=== PATIENT | female | born 1990 | race Caucasian/White ===

== ENCOUNTER 2018-01-12 00:19 | Emergency (ER) | payer MEDICAID, SELFPAY ==
[2018-01-12 00:20] VITALS: BP 128/83; PULSE 72; RESP 20; TEMP 37; O2SAT 99; BMI 25.4
--- NOTE | 2018-01-12 00:33 | ED.DCSUM_ITS ---
- ER Visit Summary Date of Service: 01/12/18 Chief Complaint: [] Right flank pain History of Present Illness: The patient is a 27 F right flank pain since yesterday. Sudden onset intermittent lasting 2 seconds at a time. Waxes and wanes. Is a sharp pain. Currently she has no symptoms. It comes and goes. It is very short-lived. She had one episode of emesis earlier today. No abdominal pain. No history of kidney stones. No urinary symptoms. Denies . she took Motrin 2 hours ago Physical Examination: [] Vital signs reviewed General: Well-nourished well-developed Head: Normocephalic atraumatic Eyes: Pupils equal round and reactive to light extraocular movements intact ENT: TMs clear no hemotympanum no trauma Neck: Nontender full range of motion Cardiovascular: Regular rate rhythm no murmurs normal S1-S2 Respiratory: No distress clear to auscultation bilaterally chest nontender Abdomen: Soft nontender nondistended normal bowel sounds no masses Back: Nontender no CVA tenderness Extremities: Nontender active range of motion ?4 extremities no trauma Skin: Normal color no trauma Neuro alert oriented cranial nerves II through XII intact normal strength sensation reflexes Test Results: [] Emergency Department Course and Treatment: [] Given oral Tylenol. Symptom-free currently. Urine analysis and labs sent. They are essentially negative. No bacteria or microscopic red blood cells seen. She is remained pain-free here. I do not think she has a kidney stone. There is no evidence of UTI. She has no abdominal pain to suspect an intra-abdominal or emergent as of her symptoms. I think she can follow-up. She will continue Tylenol ibuprofen. This could be musculoskeletal. Treatment Plan: [] Disposition: [] Impression: [] Right flank pain resolved This note was generated with [employer] dictation software. It may contain incorrect words, spelling, and punctuation that were not noted in review of the chart prior to signing ED Disposition - Plan for ED Patient: Chief Complaint: Flank Pain Referrals: Jose Roberto Carrera DO [Primary Care Provider] -
[2018-01-12] MEDS: Acetaminophen 500 MG Tablet 1000 MG PO (00:35)
[2018-01-12 00:42] LABS: Bacteria 0 SEEN /hpf (None Seen); Mucous, Urine 0 SEEN /hpf (<or=2+); Red Blood Cells-Urine 0 SEEN /hpf (0-5); White Blood Cells 0 SEEN /hpf (0-5)
[2018-01-12 00:47] LABS: Color, Urine Straw (Yellow); Glucose, Dipstick Normal (Normal); Ketone-Dipstick Negative (Negative); Leukocyte Esterase-Dipstick Negative /ul (Negative); Nitrite-Dipstick Negative (Negative); Occult Blood-Urine 150 /ul (Negative); Protein-Dipstick Negative (Negative); Specific Gravity, Urine 1.005 (1.002-1.030); Urine Bilirubin Dipstick Negative (Negative); Urine Clarity Clear (Clear); Urine Urobilinogen Normal (Normal)
[2018-01-12 00:48] LABS: Internal QC Validated? YES +Cl - CLEAR BKGD; Pregnancy, Urine Negative Negative
[2018-01-12 00:54] LABS: Squamous Epithelial Cells - UA 0-5 SEEN /hpf (5-10)
--- NOTE | 2018-01-12 00:59 | ED.DEP ---
ED Disposition - Plan for ED Patient: Disposition: Home or Assisted Living Chief Complaint: Flank Pain Instructions: ED Flank Pain Uncertain Cause Referrals: Jose Roberto Carrera DO [Primary Care Provider] -
--- NOTE | 2018-01-12 01:04 | ED.RN ---
PT GIVEN WRITTEN AND VERBAL DISCHARGE INSTRUCTIONS AND VERBALIZES UNDERSTANDING. PT TO FOLLOW UP WITH DR. ESPINOZA AND RETURN TO ED FOR ANY NEW OR WORSENED SX. PT VERBALIZES UNDERSTANDING AND DENIES ANY FURTHER QUESTIONS.
== END 2018-01-12 01:06 | disposition home or self-care (01) ==
PROVIDERS: Emergency Provider Emergency Medicine; Family Provider Student in an Organized Health Care Education/Training Program; PCP Student in an Organized Health Care Education/Training Program
DX: R10.9 Unspecified abdominal pain (principal); R11.2 Nausea with vomiting, unspecified; J45.909 Unspecified asthma, uncomplicated; Z87.440 Personal history of urinary (tract) infections
CPT/HCPCS: 81001; 81025; 99283

== ENCOUNTER 2018-02-18 20:58 | Emergency (ER) | payer MEDICAID, SELFPAY ==
[2018-02-18 20:59] VITALS: BP 112/69; PULSE 90; RESP 23; TEMP 36.7; O2SAT 98; BMI 27.8
[2018-02-18 21:05] LABS: Bedside Glucose 132 mg/dL (70-110)
--- NOTE | 2018-02-18 21:22 | CT_ITS ---
STUDY: CT BRAIN WITHOUT CONTRAST REASON FOR EXAM: Female, 27 years old. Low blood sugar and tremors while sleeping. RADIATION DOSAGE (If Supplied By Facility): CTDIvol = ( 44.99 ) mGy, DLP = ( 762.36 ) mGycm TECHNIQUE: Transaxial CT imaging of the brain was performed without administration of intravenous contrast material. Individualized dose optimization techniques were used for this CT. COMPARISON: September 17, 2012 FINDINGS: Normal soft tissue structures. Normal calvarium. Normal size ventricles and extra-axial spaces for the patient's age. Normal white matter tracts of the cerebral hemispheres. Normal basal ganglia and thalami. Normal brainstem. Normal cerebellum. There is no intracranial hemorrhage. There are no findings of an acute ischemic infarction. Normal visualized paranasal sinuses. CT/Brain/Head without Contrast IMPRESSION: No acute intracranial process. Electronically Signed: Radha Gudino MD at 22:16 EST Tel , Service support ,
--- NOTE | 2018-02-18 21:22 | RAD_ITS ---
STUDY: X-RAY CHEST REASON FOR EXAM: Female, 27 years old. Cough, chest pain. TECHNIQUE: Single frontal view of the chest. COMPARISON: None. FINDINGS: The lungs are clear and expanded. There is no demonstrated pleural abnormality. Normal size heart. Normal mediastinum and rafa. Normal visualized pulmonary arteries. Normal visualized aortic arch and descending thoracic aorta. Normal visualized thoracic spine. Normal visualized ribs, clavicles, and shoulders. There is no demonstrated abnormality of the visualized soft tissue structures of the upper abdomen. RAD/Chest 1 View (Portable) IMPRESSION: No acute cardiopulmonary process. Electronically Signed: Radha Gudino MD at 22:33 EST Tel , Service support ,
[2018-02-18 21:25] VITALS: BP 99/65; PULSE 89; RESP 16; O2SAT 99
[2018-02-18 21:35] LABS: Absolute Lymphocyte Count 2.75 X10^3/ul (0.83-4.51); Absolute Neutrophil Count 5.8 X10^3/uL (2.0-7.7); Basophil# 0.02 X10^3/uL; Basophil% 0.2 % (0-1); Eosinophil# 0.14 X10^3/uL; Eosinophils% 1.4 % (0-5); Hematocrit 39.4 % (37-47); Hemoglobin 13.4 g/dl (12.0-15.0); Lymphocyte # 2.75 X10^3/ul (4.0); Lymphocyte % 28.4 % (19-41); Mean Corpuscular Hgb 31.1 pg (27.0-32.0); Mean Corpuscular Volume 91.4 fL (81-99); Mean Platelet Vol. 9.8 fl (6.2-12.0); Monocyte# 0.94 X10^3/uL; Monocyte% 9.7 % (0-10); Neutrophil # 5.82 X10^3/uL (2.7-7.7); Neutrophil % 60.2 % (47-70); Platelet Count 240 K/mm3 (150-450); Red Blood Count 4.31 M/mm3 (4.2-5.4); White Blood Count 9.7 K/mm3 (4.4-11.0)
[2018-02-18 21:36] LABS: POSITIVE COUNT NO; POSITIVE DIFFERENTIAL NO; POSITIVE MORPHOLOGY NO
--- NOTE | 2018-02-18 21:41 | ED.DCSUM_ITS ---
- ER Visit Summary Date of Service: 02/18/18 Chief Complaint: Seizure History of Present Illness: The patient is a 27 F presenting after seizure. Per her boyfriend she was shaking for approximately 5 minutes. He states he was unresponsive for 3 minutes. She had no urinary incontinence. No obvious bites of her tongue but she states her tongue is sore. She has a history of seizures in the past. Her last seizure was in 2012. She states she was taken off seizure medications in 2013. She complains of headache and cough. Denies fever. Denies other complaints. Per EMS her blood sugar was 53 on their arrival. She was given oral glucose. Physical Examination: Vitals are stable. Patient is afebrile. Alert no acute distress. HEENT exam is unremarkable. Neck is supple. No meningismus Lungs are clear and equal bilaterally. Heart is regular rate and rhythm. Abdomen is soft nontender nondistended. Extremities are unremarkable. Skin is warm and dry. No focal neurologic deficit. Normal strength and sensation Remainder of exam is unremarkable. Emergency Department Course and Treatment: CBC is normal. Chemistries unremarkable. Glucose is 112. HCG negative. CT head shows no acute process. Chest x-ray shows no acute process. Patient was given Tylenol. She is feeling back to baseline. She is able to tolerate po. She is advised to follow-up with Dr. Chávez and her primary care physician. Advised return to ED for worsening complaints. Disposition: Discharge home Impression: Recurrent seizure, hypoglycemia resolved This note was generated with [employer] dictation software. It may contain incorrect words, spelling, and punctuation that were not noted in review of the chart prior to signing ED Disposition - Plan for ED Patient: Chief Complaint: Seizure Instructions: Hypoglycemia (Low Blood Sugar), ED Seizure Recurrent Referrals: Jose Roberto Carrera DO [Primary Care Provider] - Walter Chávez MD [STAFF PHYSICIAN] -
[2018-02-18 21:44] LABS: Anion Gap 6 (5-15); BUN 17 mg/dL (7-18); BUN/Creat Ratio 19.8 RATIO (10-20); Chloride 107 mmol/L (98-107); Creatinine, Serum 0.86 mg/dL (0.55-1.02); EST Glomerular Filtration Rate 85 mL/min (>60); Est Glom Filt Rate - Afr Amer 103 mL/min (>60); Estimated Creatinine Clearance 86.35 ml/min; Glucose 112 mg/dL (74-106); Potassium 3.9 mmol/L (3.5-5.1); Sodium Level 143 mmol/L (136-145)
[2018-02-18 21:54] LABS: Pregnancy, Serum, hCG Quali. NEGATIVE Negative (0-9 Nonpreg)
--- NOTE | 2018-02-18 22:39 | ED.DEP ---
ED Disposition - Plan for ED Patient: Chief Complaint: Seizure Instructions: ED Seizure Recurrent, Hypoglycemia (Low Blood Sugar) Referrals: Jose Roberto Carrera DO [Primary Care Provider] - Walter Chávez MD [STAFF PHYSICIAN] -
[2018-02-18 22:48] VITALS: BP 102/66; PULSE 89; RESP 18; O2SAT 97
[2018-02-18] MEDS: Acetaminophen 500 MG Tablet 1000 MG PO (22:51)
== END 2018-02-18 22:58 | disposition home or self-care (01) ==
LOC: ED 21:18
PROVIDERS: Emergency Provider Emergency Medicine; Family Provider Student in an Organized Health Care Education/Training Program; PCP Student in an Organized Health Care Education/Training Program
DX: G40.909 Epilepsy, unspecified, not intractable, without status epilepticus (principal); E16.2 Hypoglycemia, unspecified
CPT/HCPCS: 70450; 71045; 80048; 82962; 84703; 85025; 99285; J7040; A4216

== ENCOUNTER 2018-03-29 21:49 | Emergency (ER) | payer MEDICAID, SELFPAY ==
[2018-03-29 21:50] VITALS: BP 111/73; PULSE 92; RESP 14; TEMP 36.6; O2SAT 98; BMI 26.7
--- NOTE | 2018-03-29 21:59 | ED.RN ---
pt is denying pain at this time.
--- NOTE | 2018-03-29 22:01 | ED.RN ---
pt denies pain at this time. states that her periods have been irregular recently but could be d/t the change in weather.
[2018-03-29 23:16] LABS: Absolute Lymphocyte Count 2.59 X10^3/ul (0.83-4.51); Basophil# 0.02 X10^3/uL; Basophil% 0.2 % (0-1); Eosinophil# 0.12 X10^3/uL; Eosinophils% 1.4 % (0-5); Hematocrit 41.5 % (37-47); Hemoglobin 14.7 g/dl (12.0-15.0); Lymphocyte # 2.59 X10^3/ul (4.0); Lymphocyte % 30.3 % (19-41); Mean Corp Hgb Conc 35.4 g/gl (32-36); Mean Corpuscular Hgb 31.7 pg (27.0-32.0); Mean Corpuscular Volume 89.4 fL (81-99); Mean Platelet Vol. 9.8 fl (6.2-12.0); Monocyte# 0.76 X10^3/uL; Monocyte% 8.9 % (0-10); Neutrophil # 5.04 X10^3/uL (2.7-7.7); Platelet Count 223 K/mm3 (150-450); RBC Distribution Width CV 12.5 % (11.6-14.6); RBC Distribution Width SD 40.4 fl (35.1-43.9); Red Blood Count 4.64 M/mm3 (4.2-5.4); White Blood Count 8.6 K/mm3 (4.4-11.0)
[2018-03-29 23:18] LABS: POSITIVE COUNT NO; POSITIVE DIFFERENTIAL NO; POSITIVE MORPHOLOGY NO
[2018-03-29 23:20] LABS: Internal QC Validated? YES +Cl - CLEAR BKGD; Pregnancy, Urine Negative Negative
[2018-03-29 23:28] LABS: BUN 14 mg/dL (7-18); Creatinine, Serum 0.79 mg/dL (0.55-1.02); Glucose 115 mg/dL (74-106)
[2018-03-29 23:29] LABS: ALB/GLOB Ratio 1.3 RATIO (0.9-2.4); AST(SGOT) 15 U/L (15-37); Alanine Aminotransfer ALT/SGPT 22 U/L (13-56); Albumin, Serum 4.2 g/dL (3.2-5.0); Alkaline Phosphatase 80 U/L (45-117); Anion Gap 7 (5-15); BUN/Creat Ratio 17.8 RATIO (10-20); Calcium,Total 8.9 mg/dL (8.5-10.1); Chloride 108 mmol/L (98-107); EST Glomerular Filtration Rate 94 mL/min (>60); Est Glom Filt Rate - Afr Amer 114 mL/min (>60); Globulin 3.3 g/dL (2.2-4.2); Lipase 184 U/L (73-393); Potassium 3.8 mmol/L (3.5-5.1); Protein, Total 7.5 g/dL (6.4-8.2); Sodium Level 142 mmol/L (136-145)
--- NOTE | 2018-03-30 02:06 | ED.VISSUMM ---
- ER Visit Summary Date of Service: 03/30/18 Chief Complaint: Abdominal pain History of Present Illness: The patient is a 27 F who presents with abdominal pain that has been constant for the past few months. Patient states the pain became worse today. Patient states the pain is a cramping sensation. Patient states is worse over the right lower abdomen. Patient admits to some nausea and vomiting. Patient states she has had 3-4 episodes of vomiting over the past week. Patient states she is able to keep some food and liquids down. Patient denies any diarrhea. Patient denies any urinary complaints. Patient denies any melena or hematochezia. Patient denies any hematemesis or coffee-ground emesis. Physical Examination: Vital signs are stable. Patient is afebrile. Patient is in no acute distress. Oral mucosa is pink and moist. Neck is supple. Trachea is midline. There is no JVD noted. Heart was regular rate and rhythm. Lungs are clear and equal bilaterally. Abdomen is soft. There is some mild right upper and right lower quadrant tenderness. There is no rebound or guarding noted. Cranial nerves II through XII are intact. There are no focal motor or sensory deficits noted. The remaining physical exam is within normal limits. Test Results: CBC, comprehensive metabolic profile, and lipase were obtained and were within normal limits. Urine hCG was negative. CT scan of the abdomen and pelvis was obtained. There is a 3 cm left ovarian cyst. There is no other acute intra-abdominal abnormality noted. Emergency Department Course and Treatment: Patient was given an injection of Toradol here. Patient felt better on reevaluation. Patient was sleeping on reevaluation. Patient was instructed to follow-up with her primary care physician as scheduled. Patient was given a prescription for Naprosyn to take for pain. Patient understood and was agreeable with the plan. All questions were answered. Disposition: Discharged home Impression: 1. Abdominal pain 2. Ovarian cyst This note was generated with [employer] dictation software. It may contain incorrect words, spelling, and punctuation that were not noted in review of the chart prior to signing ED Disposition - Plan for ED Patient: Disposition: Home or Assisted Living Chief Complaint: Abd Pain Diagnosis: Abdominal pain, Ovarian cyst Instructions: ED Cyst Ovarian Prescriptions: Naproxen [Naprosyn] 500 mg PO BID PRN #20 tab Referrals: Jose Roberto Carrera DO [Primary Care Provider] -
--- NOTE | 2018-03-30 02:10 | ED.DCSUM_ITS ---
- ER Visit Summary Date of Service: 03/30/18 Chief Complaint: Abdominal pain History of Present Illness: The patient is a 27 F who presents with abdominal pain that has been constant for the past few months. Patient states the pain became worse today. Patient states the pain is a cramping sensation. Patient states is worse over the right lower abdomen. Patient admits to some nausea and vomiting. Patient states she has had 3-4 episodes of vomiting over the past week. Patient states she is able to keep some food and liquids down. Patient denies any diarrhea. Patient denies any urinary complaints. Patient denies any melena or hematochezia. Patient denies any hematemesis or coffee-ground emesis. Physical Examination: Vital signs are stable. Patient is afebrile. Patient is in no acute distress. Oral mucosa is pink and moist. Neck is supple. Trachea is midline. There is no JVD noted. Heart was regular rate and rhythm. Lungs are clear and equal bilaterally. Abdomen is soft. There is some mild right upper and right lower quadrant tenderness. There is no rebound or guarding noted. Cranial nerves II through XII are intact. There are no focal motor or sensory deficits noted. The remaining physical exam is within normal limits. Test Results: CBC, comprehensive metabolic profile, and lipase were obtained and were within normal limits. Urine hCG was negative. CT scan of the abdomen and pelvis was obtained. There is a 3 cm left ovarian cyst. There is no other acute intra-abdominal abnormality noted. Emergency Department Course and Treatment: Patient was given an injection of Toradol here. Patient felt better on reevaluation. Patient was sleeping on reevaluation. Patient was instructed to follow-up with her primary care physician as scheduled. Patient was given a prescription for Naprosyn to take for pain. Patient understood and was agreeable with the plan. All questions were answered. Disposition: Discharged home Impression: 1. Abdominal pain 2. Ovarian cyst This note was generated with [employer] dictation software. It may contain incorrect words, spelling, and punctuation that were not noted in review of the chart sil or to signing ED Disposition - Plan for ED Patient: Disposition: Home or Assisted Living Chief Complaint: Abd Pain Diagnosis: Abdominal pain, Ovarian cyst Instructions: ED Cyst Ovarian Prescriptions: Naproxen [Naprosyn] 500 mg PO BID PRN #20 tab Referrals: Jose Roberto Carrera DO [Primary Care Provider] -
[2018-03-30 02:16] VITALS: PULSE 79; RESP 14; O2SAT 100
--- NOTE | 2018-03-30 22:48 | CT_ITS ---
STUDY: CT ABDOMEN AND PELVIS WITH CONTRAST REASON FOR EXAM: Female, 27 years old. Right lower quadrant pain RADIATION DOSAGE (If Supplied By Facility): CTDIvol = ( 10.35 ) mGy, DLP = ( 510.89 ) mGycm TECHNIQUE: Transaxial images were obtained from the dome of the diaphragm to the symphysis pubis without oral contrast. 100ML ml of Isovue 300 contrast was administered. Sagittal and coronal images were reconstructed. Individualized dose optimization techniques were used for this CT. COMPARISON: None. FINDINGS: The visualized lung bases are unremarkable. The visualized portions of the heart are within normal limits. Normal liver. Normal gallbladder and extrahepatic biliary system. Normal spleen. Normal pancreas. Normal bilateral adrenal glands. Normal right kidney. Normal left kidney. Normal visualized stomach. Normal small intestine. Normal colon. The appendix is visualized and appears normal. Normal abdominal aorta. Normal inferior vena cava. Normal retroperitoneum. Normal urinary bladder. Normal uterus and right ovary. Left ovarian cyst measures 3 cm. Normal abdominal wall. Normal osseous structures. CT/Abdomen/Pelvis WITH Contrast IMPRESSION: Left ovarian cyst measures 3 cm. Electronically Signed: Farhat Schulz MD at 1:35 EST Tel , Service support ,
== END 2018-03-30 02:19 | disposition home or self-care (01) ==
PROVIDERS: Emergency Provider Emergency Medicine; Family Provider Student in an Organized Health Care Education/Training Program; PCP Student in an Organized Health Care Education/Training Program
DX: N83.202 Unspecified ovarian cyst, left side (principal); R10.31 Right lower quadrant pain; R10.11 Right upper quadrant pain
CPT/HCPCS: 74177; 80053; 81025; 83690; 85025; 99284; Q9967; A4216

== ENCOUNTER → 2018-05-11 20:00 | Outpatient (CLI) | payer MEDICAID, SELFPAY | PROVIDERS: Family Provider Student in an Organized Health Care Education/Training Program; PCP Student in an Organized Health Care Education/Training Program; Referring Provider Clinical Nurse Specialist Acute Care; Visit Provider Clinical Nurse Specialist Acute Care | DX: G47.10 Hypersomnia, unspecified (principal) | CPT/HCPCS: 95810 ==

== ENCOUNTER 2018-07-09 20:19 | Emergency (ER) | payer MEDICAID, SELFPAY ==
[2018-07-09 20:20] VITALS: BP 118/83; PULSE 104; RESP 17; TEMP 36.8; O2SAT 97; BMI 29.2
--- NOTE | 2018-07-09 20:51 | US_ITS ---
STUDY: ULTRASOUND OF THE FEMALE PELVIS - COMPLETE REASON FOR EXAM: Female, 28 years old. Right lower quadrant pain. LMP: 05/14/2018. TECHNIQUE: Transabdominal and Transvaginal TECHNICAL QUALITY: Adequate. COMPARISON: None. FINDINGS: The uterus is anteverted and is in a midline position. The uterus measures 6 x 4 x 3.3 cm. Normal uterine cervix. The endometrium measures 5 mm in thickness, and is hyperechoic. There is no demonstrated endometrial mass. There is no demonstrated myometrial mass. I.U.D. - The patient does not have an I.U.D. The right ovary is visualized. The right ovary measures 2.4 x 1.7 x 1.2 cm. There is no right ovarian cyst or ovarian mass. There is no visualized right adnexal mass or complex lesion. There is normal arterial and normal venous vascularity. The left ovary is visualized. The left ovary measures 5.2 x 3.9 x 2.8 cm. There is a complex cyst in the left ovary with internal echoes measuring by 3 x 3.2 x 2.7 cm. There is another smaller cyst measuring about 2 x 1.8 x 1.6 cm. Additional follicles are seen. There is no visualized left adnexal mass or complex lesion. There is normal arterial and normal venous vascularity. There is no fluid in the cul-de-sac. US/Transvaginal Non- IMPRESSION: Complex left ovarian cysts as described above which could represent hemorrhagic cysts. Follow-up exam is recommended. Otherwise unremarkable examination. Electronically Signed: Antonino De Dios MD at 22:30 EDT Tel , Service support ,
[2018-07-09] MEDS: Ketorolac 30 MG/ML Syringe IV (21:05)
[2018-07-09] MEDS: 0.9% Normal Saline 1,000 ML 1000 ML IV (21:05)
[2018-07-09] MEDS: 0.9% Normal Saline 1,000 ML 150 ML IV (21:05)
[2018-07-09] MEDS: Ondansetron 4 MG/2 ML Vial IV (21:05)
[2018-07-09 21:37] LABS: Mucous, Urine 0 SEEN /hpf (<or=2+); Red Blood Cells-Urine 0 SEEN /hpf (0-5)
[2018-07-09 21:40] LABS: Color, Urine Yellow (Yellow); Glucose, Dipstick Normal (Normal); Ketone-Dipstick Negative (Negative); Leukocyte Esterase-Dipstick 500 /ul (Negative); Nitrite-Dipstick Negative (Negative); Occult Blood-Urine Negative /ul (Negative); Protein-Dipstick 15 mg/dl (Negative); Urine Bilirubin Dipstick Negative (Negative); Urine Clarity Clear (Clear); Urine Urobilinogen Normal (Normal); Urine pH 6.5 (5.0 - 8.0)
[2018-07-09 21:42] LABS: Absolute Lymphocyte Count 2.93 X10^3/ul (0.83-4.51); Absolute Neutrophil Count 7.7 X10^3/uL (2.0-7.7); Basophil# 0.03 X10^3/uL; Basophil% 0.2 % (0-1); Eosinophil# 0.11 X10^3/uL; Eosinophils% 0.9 % (0-5); Hematocrit 40.5 % (37-47); Hemoglobin 13.9 g/dl (12.0-15.0); Lymphocyte # 2.93 X10^3/ul (4.0); Lymphocyte % 24.4 % (19-41); Mean Corp Hgb Conc 34.3 g/gl (32-36); Mean Corpuscular Hgb 30.4 pg (27.0-32.0); Mean Corpuscular Volume 88.6 fL (81-99); Mean Platelet Vol. 9.8 fl (6.2-12.0); Monocyte# 1.18 X10^3/uL; Monocyte% 9.8 % (0-10); Neutrophil # 7.74 X10^3/uL (2.7-7.7); Neutrophil % 64.5 % (47-70); Platelet Count 203 K/mm3 (150-450); RBC Distribution Width CV 12.8 % (11.6-14.6); RBC Distribution Width SD 40.7 fl (35.1-43.9); Red Blood Count 4.57 M/mm3 (4.2-5.4)
[2018-07-09 21:44] LABS: POSITIVE COUNT NO; POSITIVE DIFFERENTIAL NO; POSITIVE MORPHOLOGY NO
[2018-07-09 21:48] LABS: Bacteria RARE /hpf (None Seen); Squamous Epithelial Cells - UA 0-5 SEEN /hpf (5-10); White Blood Cells 0-5 SEEN /hpf (0-5)
--- NOTE | 2018-07-09 21:48 | ED.VISSUMM ---
- ER Visit Summary Date of Service: 07/09/18 Chief Complaint: Abdominal pain, nausea, vomiting, diarrhea History of Present Illness: The patient is a 28 F who reports intermittent abdominal pain for the past 5 days. She points to a focal area of the right lower quadrant. She also reports mild sore throat and cough. She was seen in urgent care today and stated her temperature there was 100.7. They told her if her abdominal pain worsened again she is to come the emergency room. She reports having dizzy spells today while driving and having to tack puller to the side of the road. She does report some vomiting along with fluctuating between diarrhea and constipation. Physical Examination: Blood pressure is 118/83, temperature 98.3, heart rate 104, respiratory rate 17, pulse ox 97% on room air. Head neck examination unremarkable. Heart is regular rate and rhythm. Lung sounds are clear. Abdomen is soft with mild suprapubic tenderness. No guarding or rebound. Hypoactive bowel sounds are present. Test Results: CBC was a white count 12.0 with normal differential. Chemistry studies normal. Urinalysis normal. test negative. Pelvic ultrasound shows complex left ovarian cyst which may be hemorrhagic. Right ovary is normal. Emergency Department Course and Treatment: Patient was given Toradol, Zofran, and IV fluids. On repeat evaluation she feels significantly improved. I do not feel patient has appendicitis or cholecystitis. I do not feel further imaging is needed at this time. She will be given Zofran for home if needed. Treatment Plan: [] Disposition: Discharge Impression: Abdominal pain, uncertain etiology This note was generated with [employer] dictation software. It may contain incorrect words, spelling, and punctuation that were not noted in review of the chart prior to signing ED Disposition - Plan for ED Patient: Referrals: Jose Roberto Carrera DO [Primary Care Provider] -
[2018-07-09 21:52] LABS: Anion Gap 5 (5-15); BUN 12 mg/dL (7-18); BUN/Creat Ratio 13.7 RATIO (10-20); Calcium,Total 8.9 mg/dL (8.5-10.1); Chloride 106 mmol/L (98-107); Creatinine, Serum 0.88 mg/dL (0.55-1.02); EST Glomerular Filtration Rate 83 mL/min (>60); Est Glom Filt Rate - Afr Amer 100 mL/min (>60); Estimated Creatinine Clearance 83.66 ml/min; Glucose 85 mg/dL (74-106); Potassium 3.5 mmol/L (3.5-5.1); Sodium Level 139 mmol/L (136-145)
[2018-07-09 21:59] LABS: Pregnancy, Serum, hCG Quali. NEGATIVE Negative (0-9 Nonpreg)
--- NOTE | 2018-07-09 22:46 | ED.DEP ---
ED Disposition - Plan for ED Patient: Disposition: Home or Assisted Living Instructions: ED Abdominal Pain Unkn Cause Referrals: Jose Roberto Carrera DO [Primary Care Provider] - 1 Week if not improving
[2018-07-09 22:59] VITALS: BP 100/61; PULSE 79; RESP 16; O2SAT 96
[2018-07-09] MEDS: Ondansetron ODT 4 MG Tablet PO (22:59)
== END 2018-07-09 23:04 | disposition home or self-care (01) ==
PROVIDERS: Emergency Provider Emergency Medicine; Family Provider Student in an Organized Health Care Education/Training Program; PCP Student in an Organized Health Care Education/Training Program
DX: R10.30 Lower abdominal pain, unspecified (principal)
CPT/HCPCS: 76830; 80048; 81001; 84703; 85025; 93976; 96361; 96374; 96375; 99283; J7030; J2405

== ENCOUNTER 2018-08-11 16:56 | Emergency (ER) | payer MEDICAID, SELFPAY ==
[2018-08-11 16:56] VITALS: BP 118/74; PULSE 95; RESP 16; TEMP 36.4; O2SAT 100; BMI 29.8
--- NOTE | 2018-08-11 17:23 | ED.VISSUMM ---
- ER Visit Summary Date of Service: 08/11/18 Chief Complaint: Abdominal cramping, 5 weeks History of Present Illness: The patient is a 28 F who presents for evaluation for abdominal cramping after her 70 pound dog jumped on her stomach. Patient states her dog jumped up in her lap and landed on her stomach. After that she began experiencing some mild abdominal cramping. Patient currently is asymptomatic. She is 5 weeks and is concerned for the . She has not had ultrasound confirmation. She denies any vaginal bleeding. No other complaints at this time. Patient is already under the care of an OB physician and is on vitamins. Physical Examination: Patient is awake and alert, afebrile and hemodynamically stable, sitting in bed in no distress. Examination of the abdomen shows soft, nontender, nondistended, bowel sounds are normal. Bedside ultrasound performed. Test Results: [] Emergency Department Course and Treatment: Patient's mechanism of injury is not concerning for severe intra-abdominal pain, and other than mild complaint of abdominal cramping that is since resolved, patient is not having any vaginal bleeding or other complaints to be concerning for threatened miscarriage. At this time formal ultrasound and blood work is not indicated. Bedside ultrasound was performed, but no gestational sac was visualized. Patient has an appointment with her OB for her first formal ultrasound coming up. She is going to keep that appointment and if she develops any severe cramping or vaginal bleeding, she will return emergency department for further work-up. At this time I have very low concern for ectopic , as patient's presentation and complaints are not consistent with such. Patient discharged home very well-appearing and with no abdominal pain or any further complaints. Treatment Plan: [] Disposition: [] Impression: First trimester , mild abdominal trauma This note was generated with [employer] dictation software. It may contain incorrect words, spelling, and punctuation that were not noted in review of the chart prior to signing ED Disposition - Plan for ED Patient: Disposition: Home or Assisted Living Instructions: ED Care Referrals: Jose Roberto Carrera, [Primary Care Provider] - 3-5 Days if not improving Additional Instructions: Return to the emergency department if you develop any vaginal bleeding or severe abdominal cramping. Keep your appointment with your OB as scheduled for your first ultrasound. Use Tylenol as needed for pain. Continue vitamins. If you have any worsening of your condition or any new concerning symptoms, please return immediately to the emergency department for another evaluation.
== END 2018-08-11 18:54 | disposition home or self-care (01) ==
PROVIDERS: Emergency Provider Emergency Medicine; Family Provider Student in an Organized Health Care Education/Training Program; PCP Student in an Organized Health Care Education/Training Program
DX: O26.891 Other specified pregnancy related conditions, first trimester (principal); S39.91XA Unspecified injury of abdomen, initial encounter; Z3A.01 Less than 8 weeks gestation of pregnancy; W54.1XXA Struck by dog, initial encounter; Y93.89 Activity, other specified; Y92.009 Unspecified place in unspecified non-institutional (private) residence as the place of occurrence of the external cause; Y99.8 Other external cause status
CPT/HCPCS: 99282

== ENCOUNTER → 2018-09-20 | Outpatient (CLI) | payer MEDICAID, SELFPAY ==
[2018-09-20 13:04] VITALS: BMI 29.8
[2018-09-20 15:23] LABS: Absolute Lymphocyte Count 2.27 X10^3/ul (0.83-4.51); Absolute Neutrophil Count 7.6 X10^3/uL (2.0-7.7); Basophil# 0.01 X10^3/uL; Basophil% 0.1 % (0-1); Eosinophil# 0.17 X10^3/uL; Eosinophils% 1.5 % (0-5); Hemoglobin 13.6 g/dl (12.0-15.0); Lymphocyte # 2.27 X10^3/ul (4.0); Lymphocyte % 20.7 % (19-41); Mean Corp Hgb Conc 34.9 g/gl (32-36); Mean Corpuscular Volume 86.1 fL (81-99); Monocyte% 8.2 % (0-10); Neutrophil # 7.62 X10^3/uL (2.7-7.7); Neutrophil % 69.3 % (47-70); Platelet Count 213 K/mm3 (150-450); RBC Distribution Width SD 40.3 fl (35.1-43.9); Red Blood Count 4.53 M/mm3 (4.2-5.4)
[2018-09-20 15:24] LABS: POSITIVE COUNT NO; POSITIVE DIFFERENTIAL NO; POSITIVE MORPHOLOGY NO
[2018-09-20 16:37] LABS: HIV - WCH Non-Reactive (Nonreactive)
[2018-09-20 21:23] LABS: Chlamydia Trachomatis by PCR Negative (Negative); Neisserai gonorrhoeae by PCR Negative (Negative); Probe Check PASS; Sample Adequacy Control PASS; Specimen Processing Control PASS
[2018-09-21 01:44] LABS: Rapid Plasmin Reagin (RPR) NONREACTIVE (NONREACTIVE)
[2018-09-22 11:33] LABS: HEPATITIS B SURFACE AG Negative (Negative)
== END | disposition home or self-care (01) ==
PROVIDERS: Family Provider Student in an Organized Health Care Education/Training Program; PCP Student in an Organized Health Care Education/Training Program; Referring Provider Obstetrics & Gynecology; Visit Provider Obstetrics & Gynecology
DX: Z34.81 Encounter for supervision of other normal pregnancy, first trimester (principal); Z31.430 Encounter of female for testing for genetic disease carrier status for procreative management
CPT/HCPCS: 36415; 85025; 86592; 86703; 86762; 86850; 86900; 87086; 87088; 87340; 87491; 87591

== ENCOUNTER 2018-09-26 19:51 | Emergency (ER) | payer MEDICAID, SELFPAY ==
[2018-09-20 13:04] VITALS: BMI 29.8
[2018-09-26 19:53] VITALS: BP 113/69; PULSE 92; PULSE 96; RESP 17; TEMP 36.4; O2SAT 98; BMI 29.2
--- NOTE | 2018-09-26 21:00 | ED.VISSUMM ---
- ER Visit Summary Date of Service: 09/26/18 Chief Complaint: [Vomiting and diarrhea] History of Present Illness: The patient is a 28 F [resents to the emergency department with symptoms that started earlier today around 10 AM. Patient states that she is had multiple episodes of vomiting and cannot keep anything down. Patient's had severe episodes of diarrhea that is been watery and she is had 3 episodes of incontinence with it because she could get to the bathroom in time. Patient denies any abdominal pain. She denies any fever. She denies urinary symptoms. Patient is 13 weeks . Recent antibiotic usage. Patient does not have any vaginal bleeding. Her last pelvic ultrasound was 1 week ago.] Physical Examination: [HEENT-PERRLA, EOMI. Cranial nerves II through XII grossly intact. TMs clear. Mucous membranes slightly dry. No adenopathy. Cardiovascular-regular rate and rhythm without murmur or ectopy Lungs-clear to auscultation, chest wall stable without crepitus or subcu emphysema Abdomen-normoactive bowel sounds, soft, nontender, no rebound or rigidity, no peritoneal signs. Extremities-intact ?4, normal range of motion, normal pulses, atraumatic] Test Results: [CBC with differential obtained showed a white count of 13.1, hemoglobin 13, hematocrit 38, platelets 199. Chemistries unremarkable. Urinalysis was normal.] Emergency Department Course and Treatment: [Patient was given 2 L of saline. Patient was given Zofran. She had no further vomiting.] Treatment Plan: [Will be given a prescription for Zofran. Patient advised to push fluids and follow-up with primary care physician or [employer] within next 3 to 5 days. Patient advised to return if persistent vomiting, diarrhea, dehydration, or conditions worsen anyway.] Disposition: [Discharged home in stable condition] Impression: [Viral gastroenteritis] This note was generated with [employer] dictation software. It may contain incorrect words, spelling, and punctuation that were not noted in review of the chart prior to signing ED Disposition - Plan for ED Patient: Referrals: Jose Roberto Carrera DO [Primary Care Provider] -
[2018-09-26 21:26] LABS: Absolute Lymphocyte Count 2.01 X10^3/ul (0.83-4.51); Absolute Neutrophil Count 10.3 X10^3/uL (2.0-7.7); Basophil# 0.02 X10^3/uL; Basophil% 0.2 % (0-1); Eosinophil# 0.05 X10^3/uL; Eosinophils% 0.4 % (0-5); Hematocrit 37.7 % (37-47); Hemoglobin 13.1 g/dl (12.0-15.0); Lymphocyte # 2.01 X10^3/ul (4.0); Lymphocyte % 15.3 % (19-41); Mean Corp Hgb Conc 34.7 g/gl (32-36); Mean Corpuscular Hgb 30.1 pg (27.0-32.0); Mean Corpuscular Volume 86.7 fL (81-99); Mean Platelet Vol. 9.3 fl (6.2-12.0); Monocyte# 0.76 X10^3/uL; Monocyte% 5.8 % (0-10); Neutrophil # 10.26 X10^3/uL (2.7-7.7); Neutrophil % 78.1 % (47-70); Platelet Count 199 K/mm3 (150-450); RBC Distribution Width SD 41.5 fl (35.1-43.9); Red Blood Count 4.35 M/mm3 (4.2-5.4); White Blood Count 13.1 K/mm3 (4.4-11.0)
[2018-09-26 21:28] LABS: POSITIVE COUNT NO; POSITIVE DIFFERENTIAL NO; POSITIVE MORPHOLOGY NO
[2018-09-26 21:33] LABS: Anion Gap 8 (5-15); BUN 8 mg/dL (7-18); BUN/Creat Ratio 10.6 RATIO (10-20); Calcium,Total 9.3 mg/dL (8.5-10.1); Chloride 104 mmol/L (98-107); Color, Urine Yellow (Yellow); Creatinine, Serum 0.76 mg/dL (0.55-1.02); EST Glomerular Filtration Rate 98 mL/min (>60); Est Glom Filt Rate - Afr Amer 119 mL/min (>60); Estimated Creatinine Clearance 96.86 ml/min; Glucose 88 mg/dL (74-106); Glucose, Dipstick Normal (Normal); Leukocyte Esterase-Dipstick Negative /ul (Negative); Nitrite-Dipstick Negative (Negative); Occult Blood-Urine 25 /ul (Negative); Potassium 3.5 mmol/L (3.5-5.1); Protein-Dipstick 30 mg/dl (Negative); Sodium Level 137 mmol/L (136-145); Specific Gravity, Urine 1.025 (1.002-1.030); Urine Bilirubin Dipstick Negative (Negative); Urine Clarity Clear (Clear); Urine Urobilinogen Normal (Normal)
[2018-09-26 21:41] LABS: Ketone-Dipstick 150 mg/dl (Negative)
[2018-09-26 21:45] LABS: Bacteria 2+ /hpf (None Seen); Mucous, Urine 3+ /hpf (<or=2+); Red Blood Cells-Urine 0-5 SEEN /hpf (0-5); Squamous Epithelial Cells - UA 5-10 SEEN /hpf (5-10); White Blood Cells 0-5 SEEN /hpf (0-5)
--- NOTE | 2018-09-26 22:01 | ED.RN ---
DR CHANDLER NOTIFIED OF KETONES
[2018-09-26 22:05] VITALS: PULSE 77; RESP 16; O2SAT 97
--- NOTE | 2018-09-26 22:10 | ED.DEP ---
ED Disposition - Plan for ED Patient: Instructions: GASTROENTERITIS, Viral (8y-Adult) Prescriptions: Ondansetron [Zofran Odt] 4 mg PO Q8H PRN PRN #10 tab PRN Reason: Nausea Prescription Printed Referrals: Jose Roberto Carrera DO [Primary Care Provider] - 3-5 Days
[2018-09-26 22:58] VITALS: PULSE 85; RESP 16; O2SAT 97
== END 2018-09-26 22:59 | disposition home or self-care (01) ==
PROVIDERS: Emergency Provider Emergency Medicine; Family Provider Student in an Organized Health Care Education/Training Program; PCP Student in an Organized Health Care Education/Training Program
DX: O99.611 Diseases of the digestive system complicating pregnancy, first trimester (principal); A08.4 Viral intestinal infection, unspecified; Z3A.13 13 weeks gestation of pregnancy
CPT/HCPCS: 80048; 81001; 85025; 93005; 96360; 99283; J7030; A4216

== ENCOUNTER → 2018-11-21 | Outpatient (CLI) | payer MEDICAID, SELFPAY ==
[2018-11-21 10:41] VITALS: BMI 29.2
[2018-11-21 11:14] LABS: ROM Internal Control Test YES-OK TO RESULT pt. (Internal QC)
[2018-11-21 11:34] LABS: ROM Patient Test Negative (Negative)
== END | disposition home or self-care (01) ==
PROVIDERS: Family Provider Student in an Organized Health Care Education/Training Program; PCP Student in an Organized Health Care Education/Training Program; Referring Provider Obstetrics & Gynecology; Visit Provider Obstetrics & Gynecology
DX: O26.899 Other specified pregnancy related conditions, unspecified trimester (principal); N89.8 Other specified noninflammatory disorders of vagina; Z3A.00 Weeks of gestation of pregnancy not specified
CPT/HCPCS: 36415; 84112

== ENCOUNTER → 2018-12-14 | Outpatient (CLI) | payer MEDICAID, SELFPAY ==
[2018-12-03 13:07] VITALS: BMI 29.2
[2018-12-14 14:18] LABS: Absolute Lymphocyte Count 1.87 X10^3/uL (0.83-4.51); Absolute Neutrophil Count 10.2 X10^3/uL (2.0-7.7); Basophil# 0.03 X10^3/uL; Basophil% 0.2 % (0-1); Eosinophil# 0.18 X10^3/uL; Eosinophils% 1.3 % (0-5); Hematocrit 34.4 % (37-47); Hemoglobin 11.6 g/dL (12.0-15.0); Lymphocyte # 1.87 X10^3/ul (4.0); Lymphocyte % 13.9 % (19-41); Mean Corp Hgb Conc 33.7 g/dL (32-36); Mean Corpuscular Hgb 30.8 pg (27.0-32.0); Mean Corpuscular Volume 91.2 fL (81-99); Mean Platelet Vol. 9.6 fl (6.2-12.0); Monocyte# 0.99 X10^3/uL; Monocyte% 7.4 % (0-10); NRBC Flagged by Analyzer 0 % (0-5); Neutrophil # 10.24 X10^3/uL (2.7-7.7); Neutrophil % 76.4 % (47-70); Platelet Count 187 K/mm3 (150-450); RBC Distribution Width SD 46.4 fl (35.1-43.9); Red Blood Count 3.77 M/mm3 (4.2-5.4); White Blood Count 13.4 K/mm3 (4.4-11.0)
[2018-12-14 14:29] LABS: Erythrocyte Sedimentation Rate 19 mm/hr (0-20)
[2018-12-14 14:51] LABS: Vitamin B12 219 pg/mL (211-911)
[2018-12-14 14:54] LABS: ALB/GLOB Ratio 0.8 RATIO (0.9-2.4); AST(SGOT) 16 U/L (15-37); Alanine Aminotransfer ALT/SGPT 26 U/L (13-56); Alkaline Phosphatase 65 U/L (45-117); Anion Gap 6 (5-15); BUN 11 mg/dL (7-18); BUN/Creat Ratio 17.4 RATIO (10-20); Bilirubin, Direct 0.05 mg/dL (0.00-0.30); Chloride 107 mmol/L (98-107); Cholesterol 207 mg/dL (200); Creatinine, Serum 0.63 mg/dL (0.55-1.02); EST Glomerular Filtration Rate 121 mL/min (>60); Est Glom Filt Rate - Afr Amer 146 mL/min (>60); Globulin 3.8 g/dL (2.2-4.2); Glucose 94 mg/dL (74-106); High Density Lipoprotein 78 mg/dL; Protein, Total 6.8 g/dL (6.4-8.2); Sodium Level 140 mmol/L (136-145); Thyroid Stim Hormone (TSH) 1.27 uIU/mL (0.358-3.74); Triglycerides 215 mg/dL; Very Low Density Lipoprotein 43 mg/dL (5-40)
[2018-12-14 15:11] LABS: Hemoglobin A1c 4.6 % (4.2-6.3)
== END | disposition home or self-care (01) ==
LOC: LAB 13:50
PROVIDERS: Family Provider Student in an Organized Health Care Education/Training Program; PCP Student in an Organized Health Care Education/Training Program; Referring Provider Nurse Practitioner Family; Visit Provider Nurse Practitioner Family
DX: R42 Dizziness and giddiness (principal); R56.9 Unspecified convulsions
CPT/HCPCS: 36415; 80053; 80061; 82248; 82607; 83036; 84443; 85025; 85652

== ENCOUNTER → 2019-01-04 | Outpatient (CLI) | payer MEDICAID, SELFPAY ==
[2018-12-14 14:58] VITALS: BMI 29.2
--- NOTE | 2019-01-04 13:56 | EEG ---
- Electroencephalogram Date of service 01/04/2019 History EEG is being done in this 28 yr F to rule out seizures EEG Description: This is an 18 channel EEG with 10-20 lead placement system. Bipolar montages, Referential and Circumferential montages were reviewed. Photic stimulation and Hyperventilation were performed. The posterior dominant rhythm is 9 HZ synchronous, symmetric, reacting to eye opening and closing. Photo stimulation elicited normal driving response but no abnormal photoparoxysmal response, Hyperventilation did not elicit any abnormal photoparoxysmal response. There is no abnormal background slowing noted. There was no epileptiform discharges or electrographic seizures noted during this recording. EEG Interpretation This is a normal EEG. There is no epileptiform discharges or electrographic seizures noted during the record.
== END | disposition home or self-care (01) ==
LOC: PSN 09:18
PROVIDERS: Family Provider Student in an Organized Health Care Education/Training Program; PCP Student in an Organized Health Care Education/Training Program; Referring Provider Nurse Practitioner Family; Visit Provider Nurse Practitioner Family
DX: R56.9 Unspecified convulsions (principal)
CPT/HCPCS: 95819

== ENCOUNTER → 2019-01-11 | Outpatient (CLI) | payer MEDICAID, SELFPAY ==
[2019-01-11 11:25] VITALS: BMI 29.2
[2019-01-11 12:49] LABS: Absolute Lymphocyte Count 1.64 X10^3/uL (0.83-4.51); Absolute Neutrophil Count 9.7 X10^3/uL (2.0-7.7); Basophil# 0.02 X10^3/uL; Basophil% 0.2 % (0-1); Eosinophil# 0.17 X10^3/uL; Eosinophils% 1.4 % (0-5); Hematocrit 32.8 % (37-47); Hemoglobin 10.9 g/dL (12.0-15.0); Lymphocyte # 1.64 X10^3/ul (4.0); Lymphocyte % 13.2 % (19-41); Mean Corp Hgb Conc 33.2 g/dL (32-36); Mean Corpuscular Hgb 30.3 pg (27.0-32.0); Mean Corpuscular Volume 91.1 fL (81-99); Mean Platelet Vol. 9.7 fl (6.2-12.0); Monocyte# 0.75 X10^3/uL; NRBC Flagged by Analyzer 0 % (0-5); Neutrophil # 9.74 X10^3/uL (2.7-7.7); Neutrophil % 78.5 % (47-70); Platelet Count 169 K/mm3 (150-450); RBC Distribution Width SD 46.8 fl (35.1-43.9); White Blood Count 12.4 K/mm3 (4.4-11.0)
[2019-01-11 13:13] LABS: Glucose Challenge Gest 1H 50g 119 mg/dL (70-140)
== END | disposition home or self-care (01) ==
LOC: LAB 12:02
PROVIDERS: Family Provider Student in an Organized Health Care Education/Training Program; PCP Student in an Organized Health Care Education/Training Program; Referring Provider Obstetrics & Gynecology; Visit Provider Obstetrics & Gynecology
DX: Z34.92 Encounter for supervision of normal pregnancy, unspecified, second trimester (principal); Z3A.28 28 weeks gestation of pregnancy
CPT/HCPCS: 36415; 82950; 85025

== ENCOUNTER → 2019-01-18 | Outpatient (CLI) | payer MEDICAID, SELFPAY ==
[2019-01-11 11:25] VITALS: BMI 29.2
--- NOTE | 2019-01-18 14:09 | US_ITS ---
STUDY: SECOND AND THIRD TRIMESTER OBSTETRICAL ULTRASOUND - LIMITED REASON FOR EXAM: Female, 28 years old evaluate size/age LMP: 06/27/2018 PRIOR ULTRASOUND: None. TECHNIQUE: Transabdominal TECHNICAL QUALITY: Adequate. FINDINGS: There is a single intrauterine fetus. The fetus is in a cephalic presentation. There is demonstrated cardiac activity with a heart rate of 139 bpm. There is a normal amniotic fluid volume. The largest amniotic fluid pocket measures 6.7 cm. . The placenta is posterior in location and is not low lying. There are Grade 0 placental changes. The cervix measures 3.3 cm in length. BIOMETRY: BPD: 7.63 cm: 30 weeks, 4 days HC: 26.82 cm: 29 weeks, 1 days AC: 25.89 cm: 30 weeks, 0 days FL: 5.26 cm: 27 weeks, 6 days Age by LMP: 29 weeks, 2 days. JAZ by LMP: 04/03/2019. age by prior US: 28 weeks, 4 days. JAZ by prior US: 04/08/2019. age by current US: 29 weeks, 0 days. JAZ by current US: 04/05/2019. Estimated weight: 1377 grams, +/- 204 grams, 34 percentile. US/OB Limited With Biometrics IMPRESSION: Single viable intrauterine of approximately 29 weeks 0 days gestational age by current ultrasonographic measurement. Electronically Signed: Navdeep Tolliver MD at 16:33 EDT , Service support ,
== END | disposition home or self-care (01) ==
LOC: OPUS 14:09
PROVIDERS: Family Provider Student in an Organized Health Care Education/Training Program; PCP Student in an Organized Health Care Education/Training Program; Referring Provider Nurse Practitioner Women's Health; Visit Provider Nurse Practitioner Women's Health
DX: Z34.90 Encounter for supervision of normal pregnancy, unspecified, unspecified trimester (principal)
CPT/HCPCS: 76816

== ENCOUNTER 2019-01-27 16:30 | Outpatient (CLI) | payer MEDICAID, SELFPAY ==
[2019-01-11 11:25] VITALS: BMI 29.2
[2019-01-27 16:39] VITALS: BMI 34.2
[2019-01-27 17:25] LABS: ROM Internal Control Test YES-OK TO RESULT pt. (Internal QC); ROM Patient Test Negative (Negative)
--- NOTE | 2019-01-30 21:46 | OB.TRI.PN ---
Progress Notes Date of Service: 01/27/19 Progress Note: Patient presents for triage evaluation secondary to false labor FHT: 130 Moderate variability reactive no decelerations category I tracing [place]: No regular contractions Assessment and plan: This labor reactive NST, reassuring maternal and status patient discharged to home to follow-up as scheduled. See problem list details for additional plan information. Laboratory Studies: Laboratory Tests 01/27/19 Range/Units 16:40 Vag Amniotic Fld Detect Negative (Negative) - Problem List (1) False labor Status: Acute Multi Select Codes - Urinary/Genital Urinary/Genital CPT Codes: 25069-61 non-stress test Interp
== END 2019-01-27 17:40 | disposition home or self-care (01) ==
LOC: WPOUT 16:33 → OBT 16:34
PROVIDERS: Family Provider Student in an Organized Health Care Education/Training Program; PCP Student in an Organized Health Care Education/Training Program; Referring Provider Obstetrics & Gynecology; Visit Provider Obstetrics & Gynecology
DX: O47.9 False labor, unspecified (principal); Z3A.00 Weeks of gestation of pregnancy not specified
CPT/HCPCS: 59025; 59050; 84112; 99218; G0378

== ENCOUNTER 2019-02-07 17:23 | Outpatient (CLI) | payer MEDICAID, SELFPAY ==
[2019-01-28 11:51] VITALS: BMI 34.2
[2019-02-07 17:47] VITALS: BMI 34.9
--- NOTE | 2019-02-09 01:09 | OB.TRI.PN ---
Progress Notes Date of Service: 02/07/19 Progress Note: decreased fm- reactive nst FHT: 140 Moderate variability reactive no decelerations category I tracing [place]: no reg Contractions1 - Problem List (1) Decreased movements, third trimester, fetus 1 Status: Acute Multi Select Codes - Urinary/Genital Urinary/Genital CPT Codes: 17917-71 non-stress test Interp
== END 2019-02-07 18:30 | disposition home or self-care (01) ==
LOC: WPOUT 17:24 → WP 17:25
PROVIDERS: Family Provider Student in an Organized Health Care Education/Training Program; PCP Student in an Organized Health Care Education/Training Program; Referring Provider Obstetrics & Gynecology; Visit Provider Obstetrics & Gynecology
DX: O36.8190 Decreased fetal movements, unspecified trimester, not applicable or unspecified (principal); Z3A.00 Weeks of gestation of pregnancy not specified
CPT/HCPCS: 59025; 59050; 99218; G0378

== ENCOUNTER 2019-02-25 11:30 | Outpatient (CLI) | payer MEDICAID, SELFPAY ==
[2019-02-15 14:33] VITALS: BMI 34.9
[2019-02-25 11:50] VITALS: BMI 36.0
[2019-02-25 12:33] LABS: ROM Internal Control Test YES-OK TO RESULT pt. (Internal QC); ROM Patient Test Negative (Negative)
--- NOTE | 2019-02-26 15:39 | OB.TRI.PN ---
Progress Notes Date of Service: 02/25/19 Progress Note: questionable ROM negative rom plus positive fhts dc home Laboratory Studies: Laboratory Tests 02/25/19 Range/Units 12:00 Vag Amniotic Fld Detect Negative (Negative) Multi Select Codes - Urinary/Genital Urinary/Genital CPT Codes: 18508-96 non-stress test Interp
== END 2019-02-25 12:50 | disposition home or self-care (01) ==
LOC: WPOUT 11:30 → WP 11:30
PROVIDERS: Family Provider Student in an Organized Health Care Education/Training Program; PCP Student in an Organized Health Care Education/Training Program; Referring Provider Obstetrics & Gynecology; Visit Provider Obstetrics & Gynecology
DX: Z34.90 Encounter for supervision of normal pregnancy, unspecified, unspecified trimester (principal)
CPT/HCPCS: 59050; 84112; 99218; G0378

== ENCOUNTER 2019-03-05 17:45 | Outpatient (CLI) | payer MEDICAID, SELFPAY ==
[2019-03-01 11:10] VITALS: BMI 36.0
[2019-03-05 18:14] VITALS: BMI 36.3
[2019-03-05] MEDS: Dextrose 5%-Lactated Ringers 1,000 ML 999 ML IV (18:30)
[2019-03-05] MEDS: Ondansetron 4 MG/2 ML Vial IV (18:47)
[2019-03-05] MEDS: proMETHazine 25 MG/ML Syringe 12.5 MG IV (18:47)
[2019-03-05 18:50] LABS: Mucous, Urine 0 SEEN /hpf (<or=2+); Red Blood Cells-Urine 0 SEEN /hpf (0-5)
[2019-03-05 19:01] LABS: Color, Urine Yellow (Yellow); Glucose, Dipstick Normal (Normal); Ketone-Dipstick Negative (Negative); Leukocyte Esterase-Dipstick 100 /ul (Negative); Nitrite-Dipstick Negative (Negative); Occult Blood-Urine Negative /ul (Negative); Protein-Dipstick Negative (Negative); Specific Gravity, Urine 1.015 (1.002-1.030); Urine Bilirubin Dipstick Negative (Negative); Urine Clarity Sl. Cloudy (Clear); Urine Urobilinogen Normal (Normal)
[2019-03-05 19:09] LABS: ALB/GLOB Ratio 0.6 RATIO (0.9-2.4); AST(SGOT) 16 U/L (15-37); Alanine Aminotransfer ALT/SGPT 18 U/L (13-56); Albumin, Serum 2.5 g/dL (3.2-5.0); Alkaline Phosphatase 97 U/L (45-117); Anion Gap 8 (5-15); BUN 8 mg/dL (7-18); BUN/Creat Ratio 11.2 RATIO (10-20); Calcium,Total 8.7 mg/dL (8.5-10.1); Chloride 108 mmol/L (98-107); Creatinine, Serum 0.72 mg/dL (0.55-1.02); EST Glomerular Filtration Rate 104 mL/min (>60); Est Glom Filt Rate - Afr Amer 126 mL/min (>60); Estimated Creatinine Clearance 102.25 ml/min; Glucose 89 mg/dL (74-106); Protein, Total 6.5 g/dL (6.4-8.2); Sodium Level 139 mmol/L (136-145)
[2019-03-05 19:11] LABS: Bacteria RARE /hpf (None Seen); Squamous Epithelial Cells - UA 0-5 SEEN /hpf (5-10); White Blood Cells 0-5 SEEN /hpf (0-5)
[2019-03-05 19:16] LABS: Absolute Lymphocyte Count 1.84 X10^3/uL (0.83-4.51); Absolute Neutrophil Count 8.5 X10^3/uL (2.0-7.7); Basophil# 0.02 X10^3/uL; Basophil% 0.2 % (0-1); Eosinophil# 0.15 X10^3/uL; Eosinophils% 1.3 % (0-5); Hematocrit 33.8 % (37-47); Hemoglobin 11.2 g/dL (12.0-15.0); Lymphocyte # 1.84 X10^3/ul (4.0); Mean Corp Hgb Conc 33.1 g/dL (32-36); Mean Corpuscular Hgb 29.3 pg (27.0-32.0); Mean Corpuscular Volume 88.5 fL (81-99); Mean Platelet Vol. 10.4 fl (6.2-12.0); Monocyte# 0.94 X10^3/uL; Monocyte% 8.2 % (0-10); NRBC Flagged by Analyzer 0 % (0-5); Neutrophil # 8.46 X10^3/uL (2.7-7.7); Neutrophil % 73.7 % (47-70); Platelet Count 162 K/mm3 (150-450); RBC Distribution Width CV 14.6 % (11.6-14.6); RBC Distribution Width SD 46.5 fl (35.1-43.9); Red Blood Count 3.82 M/mm3 (4.2-5.4); White Blood Count 11.5 K/mm3 (4.4-11.0)
--- NOTE | 2019-03-11 17:46 | OB.TRI.PN_ITS ---
Progress Notes Date of Service: 03/05/19 Progress Note: patient seen for nausea reassuring FHT present no labor dc home nausea Laboratory Studies: Laboratory Tests 03/05/19 03/05/19 03/05/19 Range/Units 18:30 18:30 18:30 WBC 11.5 H (4.4-11.0) K/mm3 RBC 3.82 L (4.2-5.4) M/mm3 Hgb 11.2 L (12.0-15.0) g/dL Hct 33.8 L (37-47) % MCV 88.5 (81-99) fL MCH 29.3 (27.0-32.0) pg MCHC 33.1 (32-36) g/dL RDW Std Deviation 46.5 H (35.1-43.9) fl RDW Coeff of Justin 14.6 (11.6-14.6) % Plt Count 162 (150-450) K/mm3 MPV 10.4 (6.2-12.0) fl Immature Gran % (Auto) 0.600 (0.0-0.9) % Neut % (Auto) 73.7 H (47-70) % Lymph % (Auto) 16.0 L (19-41) % Esmeralda % (Auto) 8.2 (0-10) % Eos % (Auto) 1.3 (0-5) % Baso % (Auto) 0.2 (0-1) % Absolute Neuts (auto) 8.5 H (2.0-7.7) X10^3/uL Absolute Lymphs (auto) 1.84 (0.83-4.51) X10^3/uL Nucleated RBC % 0 (0-5) % Sodium 139 (136-145) mmol/L Potassium 4.0 (3.5-5.1) mmol/L Chloride 108 H (98-107) mmol/L Carbon Dioxide 23.0 (21.0-32.0) mmol/L Anion Gap 8 (5-15) BUN 8 (7-18) mg/dL Creatinine 0.72 (0.55-1.02) mg/dL Estim Creat Clear Calc 102.25 ml/min Est GFR (MDRD) Af Amer 126 (>60) mL/min Est GFR (MDRD) Non-Af 104 (>60) mL/min BUN/Creatinine Ratio 11.2 (10-20) RATIO Glucose 89 (74-106) mg/dL Calcium 8.7 (8.5-10.1) mg/dL Total Bilirubin 0.20 (0.20-1.00) mg/dL AST 16 (15-37) U/L ALT 18 (13-56) U/L Alkaline Phosphatase 97 (45-117) U/L Total Protein 6.5 (6.4-8.2) g/dL Albumin 2.5 L (3.2-5.0) g/dL Globulin 4.0 (2.2-4.2) g/dL Albumin/Globulin Ratio 0.6 L (0.9-2.4) RATIO Urine Color Yellow (Yellow) Urine Clarity Sl. Cloudy (Clear) Urine pH 7.0 (5.0 - 8.0) Ur Specific [place] 1.015 (1.002-1.030) Urine Protein Negative (Negative) mg/dl Urine Glucose (UA) Normal (Normal) mg/dl Urine Ketones Negative (Negative) mg/dl Urine Occult Blood Negative (Negative) /ul Urine Nitrite Negative (Negative) Urine Bilirubin Negative (Negative) mg/dL Urine Urobilinogen Normal (Normal) mg/dl Ur Leukocyte Esterase 100 H (Negative) /ul Urine RBC 0 SEEN (0-5) /hpf Urine WBC 0-5 SEEN (0-5) /hpf Ur Squamous Epith Cells 0-5 SEEN (5-10) /hpf Urine Bacteria RARE (None Seen) /hpf Urine Mucus 0 SEEN (<or=2+) /hpf Multi Select Codes - Urinary/Genital Urinary/Genital CPT Codes: Other Procedure See Report - no charge
== END 2019-03-05 19:40 | disposition home or self-care (01) ==
LOC: WPOUT 18:11 → WP 03-06 07:27
PROVIDERS: Family Provider Student in an Organized Health Care Education/Training Program; PCP Student in an Organized Health Care Education/Training Program; Visit Provider Obstetrics & Gynecology
DX: O26.899 Other specified pregnancy related conditions, unspecified trimester (principal); R11.0 Nausea; Z3A.00 Weeks of gestation of pregnancy not specified
CPT/HCPCS: 96361; 96374; 96375; 36415; 59025; 59050; 80053; 81001; 85025; 99218; G0378; J2405

== ENCOUNTER 2019-03-12 20:00 | Outpatient (CLI) | payer MEDICAID, SELFPAY ==
[2019-03-12 20:42] VITALS: BMI 37.2
[2019-03-12 21:02] LABS: Color, Urine Yellow (Yellow); Glucose, Dipstick Normal (Normal); Ketone-Dipstick 5 mg/dl (Negative); Leukocyte Esterase-Dipstick 25 /ul (Negative); Nitrite-Dipstick Negative (Negative); Occult Blood-Urine Negative /ul (Negative); Protein-Dipstick 30 mg/dl (Negative); Urine Bilirubin Dipstick Negative (Negative); Urine Clarity Sl. Cloudy (Clear); Urine Urobilinogen Normal (Normal); Urine pH 6.5 (5.0 - 8.0)
[2019-03-12 21:16] LABS: ROM Internal Control Test YES-OK TO RESULT pt. (Internal QC); ROM Patient Test Negative (Negative)
--- NOTE | 2019-03-15 03:58 | OB.TRI.NOTE ---
- Problem List (1) False labor Status: Acute History of Present Illness Date of Service: 03/12/19 Reason For Visit: R/O LABOR History of Present Illness: co ctx questionable labor Allergies peanut Allergy (Verified 03/14/19 14:23) Shortness of breath - Pertinent Past Medical History Medical History: Past Medical History (Last Reviewed 03/14/19 @ 14:23 by Brenda Capellan) Anxiety Depression Seizures was on tegertol Sleep apnea Chronic headaches Surgical History: Past Surgical History (Last Reviewed 03/14/19 @ 14:23 by Brenda Capellan) History of tonsillectomy History of wisdom tooth extraction, class IV edentulism Laboratory Studies: Laboratory Tests 03/12/19 03/12/19 Range/Units 20:30 20:30 Urine Color Yellow (Yellow) Urine Clarity Sl. Cloudy (Clear) Urine pH 6.5 (5.0 - 8.0) Ur Specific [place] 1.020 (1.002-1.030) Urine Protein 30 H (Negative) mg/dl Urine Glucose (UA) Normal (Normal) mg/dl Urine Ketones 5 H (Negative) mg/dl Urine Occult Blood Negative (Negative) /ul Urine Nitrite Negative (Negative) Urine Bilirubin Negative (Negative) mg/dL Urine Urobilinogen Normal (Normal) mg/dl Ur Leukocyte Esterase 25 H (Negative) /ul Vag Amniotic Fld Detect Negative (Negative) Physical Exam Cervix Dilation (cm): 0 - no cervical change NST - FHR Rate Baby A Baseline: 130 Variability:: Moderate Accelerations:: 15 x 15 Decelerations:: None NST Reactive:: Yes FHR Category:: Category I Uterine Activity:: irregular Impression/Plan false labor reactive nst dc home movement and labor precautions reviewed. Multi Select Codes - Urinary/Genital Urinary/Genital CPT Codes: 41228-59 non-stress test Interp
== END 2019-03-12 22:30 | disposition home or self-care (01) ==
LOC: WPOUT 20:04 → WP 20:04
PROVIDERS: Family Provider Student in an Organized Health Care Education/Training Program; PCP Student in an Organized Health Care Education/Training Program; Visit Provider Obstetrics & Gynecology
DX: O47.9 False labor, unspecified (principal); Z3A.00 Weeks of gestation of pregnancy not specified
CPT/HCPCS: 59025; 59050; 81002; 84112; 87086; 87088; 99218; G0378

== ENCOUNTER → 2019-03-13 13:50 | Outpatient (CLI) | payer MEDICAID, SELFPAY ==
[2019-03-05 18:14] VITALS: BMI 36.3
[2019-03-12 20:42] VITALS: BMI 37.2
--- NOTE | 2019-03-13 13:52 | US_ITS ---
STUDY: SECOND AND THIRD TRIMESTER OBSTETRICAL ULTRASOUND REASON FOR EXAM: Female, 28 years old amniotic fluid index. LMP: June 26, 2018. TECHNIQUE: Transabdominal TECHNICAL QUALITY: Adequate. PRIOR ULTRASOUND: Comparison is made with prior study dated January 18, 2019. FINDINGS: There is a single intrauterine fetus. The fetus is in a cephalic presentation. There is demonstrated cardiac activity with a heart rate of 120 bpm. There is a normal amniotic fluid volume. The largest amniotic fluid pocket measures 3.7 cm. The amniotic fluid index (CHANTE) is 10.9 cm. The placenta is fundal in location. There are Grade 1 placental changes. The cervix wasn''t able to be measured due to the head positioning. The bilateral adnexal regions are normal. BIOMETRY: BPD: 9.11 cm: 36 weeks, 6 days HC: 32.71 cm: 37 weeks, 0 days AC: 33.64 cm: 36 weeks, 3 days FL: 7.07: 36 weeks, 1 days CI: 87% FL/BPD: 78% FL/HC: FL/AC: 21% HC/AC: 0.97 age by current US: 36 weeks, 2 days. JAZ by current US: April 08, 2019. Estimated weight: 3123 grams, +/- 462 grams, 56 %. age by prior US: 36 weeks, 5 days. JAZ by prior US: April 05, 2019. Age by LMP: 37 weeks, 0 days. JAZ by LMP: April 03, 2019. US/OB Limited With Biometrics IMPRESSION: Single live uterine gestation with a mean gestational age of 36 weeks and 5 days. The measurements obtained today following the normal expected range. Normal amniotic fluid index. Electronically Signed: Kvng Chan, at 9:06 EST , Service support ,
== END ==
PROVIDERS: Family Provider Student in an Organized Health Care Education/Training Program; PCP Student in an Organized Health Care Education/Training Program; Referring Provider Nurse Practitioner Women's Health; Visit Provider Nurse Practitioner Women's Health
DX: N89.8 Other specified noninflammatory disorders of vagina (principal)
CPT/HCPCS: 76816

== ENCOUNTER → 2019-03-14 17:17 | Outpatient (CLI) | payer MEDICAID, SELFPAY ==
[2019-03-14 14:47] VITALS: BMI 37.2
== END ==
PROVIDERS: Family Provider Student in an Organized Health Care Education/Training Program; PCP Student in an Organized Health Care Education/Training Program; Referring Provider Nurse Practitioner Women's Health; Visit Provider Nurse Practitioner Women's Health
DX: Z34.90 Encounter for supervision of normal pregnancy, unspecified, unspecified trimester (principal)
CPT/HCPCS: 87081

== ENCOUNTER 2019-03-24 20:32 | Outpatient (CLI) | payer MEDICAID, SELFPAY ==
[2019-03-22 09:02] VITALS: BMI 37.2
[2019-03-24 20:57] VITALS: BMI 38.2
--- NOTE | 2019-03-25 08:17 | OB.TRI.PN_ITS ---
Progress Notes Date of Service: 03/25/19 Progress Note: Patient presents for triage evaluation secondary to patient fell and decreased movement FHT: 120-130 Moderate variability reactive no decelerations category I tracing [place]: No regular contractions Assessment and plan: Abdominal trauma and decreased movement overall reassuring reactive NST, reassuring maternal and status patient discharged to home to follow-up scheduled. See problem list details for additional plan information. - Problem List (1) Decreased movements in third trimester Status: Acute (2) Abdominal trauma Status: Acute Multi Select Codes - Urinary/Genital Urinary/Genital CPT Codes: 25492-08 non-stress test Interp
== END 2019-03-24 21:35 | disposition home or self-care (01) ==
LOC: WPOUT 20:53 → WP 20:53
PROVIDERS: Family Provider Student in an Organized Health Care Education/Training Program; PCP Student in an Organized Health Care Education/Training Program; Referring Provider Obstetrics & Gynecology; Visit Provider Obstetrics & Gynecology
DX: O36.8130 Decreased fetal movements, third trimester, not applicable or unspecified (principal); S39.91XA Unspecified injury of abdomen, initial encounter; Z3A.00 Weeks of gestation of pregnancy not specified; W18.30XA Fall on same level, unspecified, initial encounter; Y93.89 Activity, other specified; Y92.89 Other specified places as the place of occurrence of the external cause; Y99.8 Other external cause status
CPT/HCPCS: 59025; 59050; 99218; G0378

== ENCOUNTER → 2019-03-28 17:03 | Outpatient (CLI) | payer MEDICAID, SELFPAY ==
[2019-03-28 14:25] VITALS: BMI 38.2
== END ==
PROVIDERS: Family Provider Student in an Organized Health Care Education/Training Program; PCP Student in an Organized Health Care Education/Training Program; Referring Provider Obstetrics & Gynecology; Visit Provider Obstetrics & Gynecology
DX: R30.0 Dysuria (principal)
CPT/HCPCS: 87086; 87088; 87186

== ENCOUNTER 2019-04-01 16:20 | Outpatient (CLI) | payer MEDICAID, SELFPAY ==
[2019-03-28 14:25] VITALS: BMI 38.2
[2019-04-01 17:10] VITALS: BMI 36.7
[2019-04-01 17:14] LABS: ROM Internal Control Test YES-OK TO RESULT pt. (Internal QC); ROM Patient Test Negative (Negative)
--- NOTE | 2019-04-01 21:14 | OB.TRI.PN ---
Progress Notes Date of Service: 04/01/19 Progress Note: Patient presents for triage evaluation secondary to false labor FHT: 140 Moderate variability reactive no decelerations category I tracing [place]: Irregular contractions Assessment and plan: False labor, negative ROM plus and cervix 1 cm dilated reactive NST, reassuring maternal and status patient discharged to home to follow-up as scheduled. See problem list details for additional plan information. Laboratory Studies: Laboratory Tests 04/01/19 Range/Units 16:45 Vag Amniotic Fld Detect Negative (Negative) Multi Select Codes - Urinary/Genital Urinary/Genital CPT Codes: 40839-59 non-stress test Interp
== END 2019-04-01 17:35 | disposition home or self-care (01) ==
LOC: WPOUT 16:27 → WP 16:27
PROVIDERS: Family Provider Student in an Organized Health Care Education/Training Program; PCP Student in an Organized Health Care Education/Training Program; Referring Provider Obstetrics & Gynecology; Visit Provider Obstetrics & Gynecology
DX: O47.9 False labor, unspecified (principal); Z3A.00 Weeks of gestation of pregnancy not specified
CPT/HCPCS: 59025; 59050; 84112; 99218; G0378

== ENCOUNTER 2019-04-03 09:10 | Outpatient (CLI) | payer MEDICAID, SELFPAY ==
[2019-04-03 09:27] VITALS: BMI 38.7
--- NOTE | 2019-04-05 02:19 | OB.TRI.PN ---
Progress Notes Date of Service: 04/05/19 Progress Note: Patient presents for triage evaluation secondary to regular contractions. Minimal cervical change 2 cm dilated. Previously 1 cm. FHT: 130 Moderate variability reactive no decelerations category I tracing [place]: Irregular contractions Assessment and plan: False labor reactive NST, reassuring maternal and status patient discharged to home to follow-up as scheduled reviewed labor precautions. See problem list details for additional plan information. Multi Select Codes - Urinary/Genital Urinary/Genital CPT Codes: 91516-08 non-stress test Interp
== END 2019-04-03 12:10 | disposition home or self-care (01) ==
LOC: WPOUT 09:24 → WP 09:25
PROVIDERS: Family Provider Student in an Organized Health Care Education/Training Program; PCP Student in an Organized Health Care Education/Training Program; Visit Provider Obstetrics & Gynecology
DX: O47.9 False labor, unspecified (principal); Z3A.00 Weeks of gestation of pregnancy not specified
CPT/HCPCS: 59025; 59050; 99218; G0378

== ENCOUNTER 2019-04-04 09:05 | Inpatient (IN) | payer MEDICAID, SELFPAY ==
[2019-04-03 09:27] VITALS: BMI 38.7
[2019-04-04 09:34] VITALS: BMI 38.6
[2019-04-04] MEDS: Lactated Ringers 1,000 ML 50 ML IV (10:10)
[2019-04-04 10:21] LABS: Absolute Lymphocyte Count 1.53 X10^3/uL (0.83-4.51); Absolute Neutrophil Count 11.9 X10^3/uL (2.0-7.7); Basophil# 0.03 X10^3/uL; Basophil% 0.2 % (0-1); Eosinophil# 0.15 X10^3/uL; Hematocrit 38.5 % (37-47); Hemoglobin 12.7 g/dL (12.0-15.0); Lymphocyte # 1.53 X10^3/ul (4.0); Lymphocyte % 10.5 % (19-41); Mean Corpuscular Hgb 29.3 pg (27.0-32.0); Mean Corpuscular Volume 88.9 fL (81-99); Mean Platelet Vol. 11.1 fl (6.2-12.0); Monocyte# 0.92 X10^3/uL; Monocyte% 6.3 % (0-10); NRBC Flagged by Analyzer 0 % (0-5); Neutrophil # 11.85 X10^3/uL (2.7-7.7); Neutrophil % 80.9 % (47-70); Platelet Count 163 K/mm3 (150-450); RBC Distribution Width CV 15.2 % (11.6-14.6); RBC Distribution Width SD 47.8 fl (35.1-43.9); Red Blood Count 4.33 M/mm3 (4.2-5.4); White Blood Count 14.6 K/mm3 (4.4-11.0)
[2019-04-04 10:22] LABS: ROM Internal Control Test YES-OK TO RESULT pt. (Internal QC); ROM Patient Test Negative (Negative)
[2019-04-04] MEDS: Lactated Ringers 500 ML 999 ML IV ×3 (10:24→22:50)
[2019-04-04] MEDS: fentaNYL-bupivacaine (epidural) 100 ML BAG EPIDURAL ×2 (12:05→17:25)
[2019-04-04] MEDS: Ondansetron 4 MG/2 ML Vial IV ×2 (13:27→17:31)
[2019-04-04] MEDS: Oxytocin 30 units/NS 500 ml 30 UNITS/500 ML IV.SOLN IV (13:34)
[2019-04-04] MEDS: Lactated Ringers 1,000 ML 200 ML IV ×2 (14:32→19:40)
--- NOTE | 2019-04-04 17:18 | PCM.HP.OB ---
- Problem List (1) Active labor at term Status: Acute (2) History of tetanus, diphtheria, and acellular pertussis booster vaccination (Tdap) Status: Acute Comment: given on 01/11/19 (3) Influenza vaccine administered Status: Acute Comment: given on 01/11/19 (4) Seizure Status: Acute Comment: s/p neurology evaluation (5) Depression Status: Acute Qualifiers: Comment: encouraged counseling, no meds at present (6) Anxiety Status: Acute Comment: encouraged counseling, no meds at present (7) Supervision of normal Status: Acute Qualifiers: Comment: PRR JAZ 04/03/19 female [place] Spouse Kerrie (8) Status: Acute Qualifiers: Comment: carrier screening negative /, ntd, and genetic- low risk female; AFP negative Anatomy repeat 4 wks due to small HC. carrier screening negative for 12 out of 12 diseases. History Date of Admission: 11/12/15 Final JAZ: 04/03/19 Gestational age: 40 Weeks and 1 Days History of this : This is a 28 year-old, , at 40 weeks gestational age presents IAL 4 cm dilated. she has had regular contracitons and spotting for several days. She has had an uncomplicated Medical History: Medical History (Last Reviewed 03/28/19 @ 14:18 by Shira Esparza) Anxiety F41.9 Depression F32.9 Seizures R56.9 was on tegertol Sleep apnea G47.30 Chronic headaches R51 Surgical History: Surgical History (Last Reviewed 03/28/19 @ 14:18 by Shira Esparza) History of tonsillectomy Z90.89 History of wisdom tooth extraction, class IV edentulism K08.494 Allergies peanut Allergy (Verified 04/04/19 09:36) Shortness of breath Home Medications: Home Medications Pnv No.95/Ferrous Fum/Folic AC [ Formula] 1 ea PO DAILY 08/11/18 Nitrofurantoin Monohyd/M-Cryst [Nitrofurantoin [place]-Mcr 100 mg] 100 mg PO BID 04/04/19 Smoking Status: Never smoker NST - FHR Rate Baby A Baseline: 140 Variability:: Moderate Accelerations:: 15 x 15 Decelerations:: None NST Reactive:: Yes FHR Category:: Category I Uterine Activity:: q2-4 History Past Pregnancies: Past Pregnancies Delivery Date Name GA/ Weeks Outcome Route Wt Infant Sex Labor Length Anesthesia Delivery Location Provider FOB Labs: Mom's Labs & Results 04/04/19 04/04/19 04/04/19 09:15 10:10 10:10 WBC 14.6 H RBC 4.33 Hgb 12.7 Hct 38.5 MCV 88.9 MCH 29.3 MCHC 33.0 RDW Std Deviation 47.8 H RDW Coeff of Justin 15.2 H Plt Count 163 MPV 11.1 Immature Gran % (Auto) 1.100 H Neut % (Auto) 80.9 H Lymph % (Auto) 10.5 L [place] % (Auto) 6.3 Eos % (Auto) 1.0 Baso % (Auto) 0.2 Absolute Neuts (auto) 11.9 H Absolute Lymphs (auto) 1.53 Nucleated RBC % 0 Vag Amniotic Fld Detect Negative Blood Type A POSITIVE Antibody Screen NEGATIVE Course Did the patient receive Yes care? Labs Blood Type: A RH: POSITIVE RPR/VDRL/Syphilis Nonreactive Rubella status Immune HbSAg Negative Date Done: 09/20/18 Chlamydia Negative Gonorrhea Negative HIV/AIDS Non-Reactive Group B Strep: Negative Current Obstetrical History Gestational Diabetes No Incompetent Cervix No Infertility No IUGR No Macrosomia No Hypertension/Pre-eclampsia No Placenta Previa/Abruption No PTL/PROM No Uterine anomaly No Oligohydramnios No Polyhydramnios No Multiple gestation No Past Medical History Asthma Yes Diabetes No Hypertension No Heart disease No Mitral valve prolapse No Neurologic/Seizure disorder/ Yes: migraines, petit mal seizures (unknown last Migraines ) Kidney disease No Liver disease No Varicosities No Clotting disorders/Hx of DVT No Thyroid Dysfunction No Other medical diseases No Psychiatric disorders Yes: depression/anxiety Major trauma No Abnormal PAP smear No Sleep apnea Yes: mild, untreated Mammogram in the last 2 years No Medications Taken During Reason for taking medication [ a couple weeks ago for upper respiratory amoxicillin] Social History Marital Status: Alleged father Kerrie [place] Hx Smoking No Smoking Status Never smoker Expected Infant Delivery Method: Spontaneous Vaginal Review of Systems Constitutional: Denies: Fever, Malaise Eyes: Denies: Blurred vision, Vision Change HEENT: Denies: Head Aches, Visual Changes Cardiovascular: Denies: Chest Pain, Palpitations Respiratory: Denies: Cough, Shortness of Breath, Wheezing Gastrointestinal: Denies: Abdominal Pain, Diarrhea, Nausea, Vomiting Genitourinary: Denies: Dysuria, Hematuria Musculoskeletal: Denies: Joint Pain, Muscle pain Skin: Denies: Lesions, Rash Neurological: Denies: Blurred vision, Focal weakness, Headaches Psychiatric: Denies: Anxiety, Depression Endocrine: Denies: Heat/ Cold Intolerance Hematologic/ Lymphatic: Denies: Easy Bruising, Easy Bleeding Physical Exam General: Alert, Cooperative, No apparent distress HEENT: Atraumatic, Normocephalic. Negative for: Thyromegaly, Lymphadenopathy Cardiovascular: Regular rate Lungs: Normal air movement Abdomen: Soft, Non Tender, Gravid Neurological: Deep Tendon Reflexes 2+/4 and Symmetrical, Neuro grossly intact. Negative for: Clonus SPLITTER MACHINE: Normal external genitalia. Negative for: Vulvar lesions Estimated gestational size: Appropriate for gestational size Presentation: Cephalic Cervix Dilation (cm): 5 Station: -1 Effacement (%): 80 Assessment/Plan All Active Problems (Last Reviewed 03/28/19 @ 14:18 by Shira Esparza) Active labor at term (Acute) UTI in (Acute) False labor (Acute) Decreased movements in third trimester (Acute) Abdominal trauma (Acute) History of tetanus, diphtheria, and acellular pertussis booster vaccination (Tdap) (Acute) Influenza vaccine administered (Acute) Seizure (Acute) Depression (Acute) Anxiety (Acute) Supervision of normal (Acute) (Acute) Decreased movements, third trimester, fetus 1 (Resolved) False labor (Resolved) This is a 28 year-old, , at 40 weeks gestational age presents IAL. Patient presents IAL, plan expectant management for , pitocin/AROM PRN if needed. Pain management: Plans epidural. GBS negative Management of any complications: None I have reviewed the [facility] and made any clinically relevant updates.
[2019-04-04] MEDS: 0.9% Saline Lock 10 ML Syringe IV (17:31)
[2019-04-04] MEDS: Acetaminophen 500 MG Tablet 1000 MG PO (20:55)
[2019-04-05] VITALS (9 sets, daily range): BP systolic 92–124; BP diastolic 51–73; PULSE 82–116; RESP 16–20; TEMP 36.4–36.8; O2SAT 97
[2019-04-05] MEDS: Lactated Ringers 500 ML 999 ML IV (00:39)
[2019-04-05] MEDS: Acetaminophen 325 MG Tablet PO (00:54)
[2019-04-05] MEDS: Oxytocin 30 units/NS 500 ml 30 UNITS/500 ML IV.SOLN 334 UNITS IV (01:48)
--- NOTE | 2019-04-05 02:08 | PCM.OPRPT ---
Problem List (1) Active labor at term Status: Acute (2) History of tetanus, diphtheria, and acellular pertussis booster vaccination (Tdap) Status: Acute Comment: given on 01/11/19 (3) Influenza vaccine administered Status: Acute Comment: given on 01/11/19 (4) Seizure Status: Acute Comment: s/p neurology evaluation (5) Depression Status: Acute Qualifiers: Comment: encouraged counseling, no meds at present (6) Anxiety Status: Acute Comment: encouraged counseling, no meds at present (7) Supervision of normal Status: Acute Qualifiers: Comment: PRR JAZ 04/03/19 female [place] Spouse Kerrie (8) Status: Acute Qualifiers: Comment: carrier screening negative 14/14, ntd, and genetic- low risk female; AFP negative Anatomy repeat 4 wks due to small HC. carrier screening negative for 12 out of 12 diseases. Vaginal Delivery Maternal Presentation: Active Labor @ 40w1d ial 4 cm Method of Induction: Pitocin Amniotic Membrane Rupture Type: Artificial Amniotic Fluid Description: Moderate meconium Final JAZ: 04/03/19 Gestational age: 40 Weeks and 2 Days Date of Procedure: 04/05/19 Pre-Operative Diagnosis: ial meconium, elevated maternal temperature, tachycardia Post-Operative Diagnosis: same Surgery/ Procedure Performed: Spontaneous Vaginal Delivery Type of Anesthesia: Epidural Description of Procedure: 28-year-old G1, P0 at 40 weeks 1 day presents in active labor 4 cm dilated. Patient had moderate meconium on artificial rupture of membranes. After several hours she had a protracted course of cervical dilation at 5 to 6 cm and therefore she was started on Pitocin augmentation. Patient was complete within 12 hours of rupture membranes and began pushing. After several hours of pushing heart rate was noted to be progressively elevating to baseline of 180s. Maternal temperature reached a level of 100.2. heart rate tracing was still reactive with minimal to moderate variability category 2 tracing. Patient delivered the head in the [LITO] presentation. The head was delivered atraumatically. Nares and mouth were suctioned on the perineum with moderate meconium present. The anterior and posterior shoulders delivered without complication followed by the rest of the and the infant was placed on the maternal abdomen. Immediately after delivery the cord was clamped and cut and gentle traction was applied to the cord and the placenta delivered spontaneously immediately following it was noted to be intact with three-vessel cord. The perineum and vagina were inspected and noted to have a second-degree perineal laceration that was repaired in the usual fashion with 3-0 Vicryl Rapide. Was noted to be on the perineum. EBL was 300 cc. Patient and infant tolerated delivery well. Cord gases were sent due to increased work of breathing present at and placenta was sent due to borderline elevated maternal temperature. Maternal temp after was 99.2 Presentation: LITO Placental Delivery Description: Spontaneous Placenta Disposition: [facility] Cord Vessel Description: 3 Vessels Cord Entanglement: None Estimated Blood Loss: 300 A gender: Female Episiotomy Description: None Laceration: Perineal Extension/lac, 2nd degree Medications given after delivery: IV Pitocin Complications: None Multi Select Codes - Urinary/Genital Urinary/Genital CPT Codes: 10088 Vaginal Delivery [facility]
[2019-04-05] MEDS: Ondansetron 4 MG/2 ML Vial IV (05:40)
[2019-04-05] MEDS: 0.9% Saline Lock 10 ML Syringe IV (05:42)
[2019-04-05] MEDS: Naproxen 250 MG Tablet 500 MG PO (05:47)
--- NOTE | 2019-04-05 07:38 | NURSING ---
0645 Pt on bedpan d/t prior vasovagal response. Unable to assess color of urine at this time d/t mixed w/stool.
--- NOTE | 2019-04-05 09:15 | NURSING ---
Pt missed hat in toilet when taken up to bathroom at this time. Unable to accurately measure void. RN audibly noted urination and saw urine in toilet with blood tinge due to uterine bleeding. No concerns at this time
--- NOTE | 2019-04-05 12:15 | CASEMGMT ---
Social Work Assessment Labor and Delivery Unit Date of Referral: 04/05/19 Time of Referral: 06:00 Date of Intervention: 04/05/19 Time of Intervention: 12:15p Reason for Referral: MOB WITH HISTORY OF ANXIETY AND DEPRESSION. FIRST TIME MOM. History obtained from: MOB AND CHART REVIEW Household composition: MOB LIVES HOME WITH , PHI BETTS Patient's parent/guardian status: MOB AND FOB ARE LEGALLY . Educational Status: MOB REPORTS PLANS TO OBTAIN GED. 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 MOB CURRENTLY ON Comprehensive Care Infant Supplies: MOB AND FOB REPORT HAS ALL NEEDS MET FOR BABY INCLUDING DIAPERS, WIPES, CLOTHES, CAR SEAT, CRIB, BASSINET ETC. Childcare/Caregiver(s): MOB STATES SHE WILL BE MAIN CAREGIVER SHE CURRENTLY DOES NOT WORK. FOB HAS 6 WEEKS OFF AND WILL BE HOME WITH MOB AND BABY. MOB ALSO HAS SUPPORT FROM FAMILY. Transportation: MOB AND FOB BOTH HAVE VALID HEALTH COORDINATOR?S LICENSES AND OWN A CAR. Programs/Agencies Involved: [facility], MOB AND FOB TO CALL WIC, MOB AND FOB OPEN TO REFERRAL FOR HELP ME GROW. Children Services/Legal Issues: NONE Behavioral Health Issues: Mental Health History: MOB REPORTS HISTORY OF ANXIETY AND DEPRESSION AND STATES HAS BEEN IN COUNSELING IN THE PAST. MOB REPORTS IS NOT PRESCRIBED MEDICATION. MOB OPEN TO COUNSELING IF NEEDED. MOB EDUCATED ON POST DEPRESSION. FOB WITH HISTORY OF DEPRESSION AND ANXIETY AND STATES IS PRESCRIBED MEDICATION. Substance Use History: MOB AND FOB DENY ANY HISTORY OF SUBSTANCE ABUSE. Support Systems: MOB AND FOB HAVE GOOD SUPPORT FROM ONE ANOTHER. MOB AND FOB REPORT GOOD SUPPORT FROM FAMILY. Depression/Shaken Baby/Safe Sleeping REVIEWED AND INFORMATIONAL PACKET/RESOURCES PROVIDED. ASSESSMENT: MET WITH MOB AND FOB IN ROOM. INTRODUCED ROLE AND REASON FOR REFERRAL. BABY GIRL, TIM BORN TODAY, 04/05/19 AND IS IN SCN. MOB REPORTS FEELING ?TIRED AND SORE.? SUPPORT PROVIDED. DISCUSSED MOB?S HISTORY OF DEPRESSION AND ANXIETY. MOB STATES NOT CURRENTLY ON MEDICATIONS AND FEELS SHE IS ?DOING GOOD.? MOB STATES OPEN TO COUNSELING IF NEEDED, DOES NOT SEE A NEED AT THIS TIME. FOB REPORTS HISTORY OF ANXIETY AND DEPRESSION AND STATES IS PRESCRIBED MEDICATION. EDUCATION PROVIDED ON POST DEPRESSION. MOB?S MOTHER TO ROOM AND MOB AND FOB GAVE PERMISSION TO CONTINUE TO SPEAK OPENLY WITH FAMILY PRESENT. MOB AND FOB REPORT HAVE ALL NEEDS MET FOR BABY. EDUCATION PROVIDED ON HELP ME GROW AND ARE IN AGREEMENT WITH REFERRAL. MOB STATES PLAN TO CONTACT [facility] AND NUMBER WAS PROVIDED. MOB DENIES ANY FURTHER NEEDS. STAFF UPDATED ON ASSESSMENT. PLAN: HOME WITH HELP ME GROW REFERRAL. No other services requested or indicated. -Domitila Galicia, SALES REPRESENTATIVE [employer], REHABILITATION CONSTRUCTION SPECIALIST
--- NOTE | 2019-04-05 12:55 | NURSING ---
RN informed Dr. Goldberg of pt report of changing shellie litter twice during . No further orders from Dr. Goldberg at this time. RN will inform packaging materials inspector.
--- NOTE | 2019-04-05 13:55 | DCINST_ITS ---
Discharge Diet: No Restrictions Discharge Activity: Return to Normal Activity, May not drive while taking narcotic pain medications., May Shower May resume sexual activity in: 4-6 weeks Call your doctor if your incision/area has: Continuous Slow Oozing, Sudden Increased Bleeding, Increased Pain/ Swelling, Increased Redness, Foul Smelling Discharge Additional Instructions: If you experience any of the following, contact your healthcare provider. * Bleeding that soaks a pad every hour for 2 hours * Fever 100.4 or higher * Unrelieved incision or abdominal pain * Swelling, redness, discharge or bleeding from your incision or episiotomy site * Your incision begins to separate * Problems urinating (including inability to urinate or burning while urinating). * Visual changes * Severe headache * Flu-like symptoms * Pain or redness in one of both of your breasts * Pain, warmth, tenderness or swelling in your legs, especially the calf area * Frequent nausea and vomiting * Symptoms of depression or anxiety If you experience any of the following, call 911 or go to the nearest Emergency Room. * Chest pain * Problems breathing * Seizure activity * Partial or complete paralysis of a body part, slurred speech, weakness or drooping of the face, or a sudden inability to walk or hold your balance Allergies/Adverse Reactions: Allergies peanut Allergy (Verified 04/04/19 09:36) Shortness of breath Medications to take at Discharge Pnv No.95/Ferrous Fum/Folic AC [ Formula] 1 ea PO DAILY 08/11/18 Nitrofurantoin Monohyd/M-Cryst [Nitrofurantoin Roane-Mcr 100 mg] 100 mg PO BID 04/04/19 Naproxen [Naprosyn] 250 - 500 mg PO Q8H PRN PRN #30 tab 04/05/19 Please Follow Up With: Amanda Goldberg MD - [phone] When: Call to make an appointment with your doctor in 6 weeks. If you had elevated Blood pressure or 4th degree laceration you will need to be seen in 2 weeks. Primary Care Physician: Jose Roberto Carrera DO [Primary Care Provider] - Test Results: Test results from this visit will be discussed in further detail at your follow- up appointment, if applicable.
--- NOTE | 2019-04-05 13:55 | PCM.DCVAG ---
Discharge Diet: No Restrictions Discharge Activity: Return to Normal Activity, May not drive while taking narcotic pain medications., May Shower May resume sexual activity in: 4-6 weeks Call your doctor if your incision/area has: Continuous Slow Oozing, Sudden Increased Bleeding, Increased Pain/ Swelling, Increased Redness, Foul Smelling Discharge Additional Instructions: If you experience any of the following, contact your healthcare provider. Bleeding that soaks a pad every hour for 2 hours Fever 100.4 or higher Unrelieved incision or abdominal pain Swelling, redness, discharge or bleeding from your incision or episiotomy site Your incision begins to separate Problems urinating (including inability to urinate or burning while urinating). Visual changes Severe headache Flu-like symptoms Pain or redness in one of both of your breasts Pain, warmth, tenderness or swelling in your legs, especially the calf area Frequent nausea and vomiting Symptoms of depression or anxiety If you experience any of the following, call 911 or go to the nearest Emergency Room. Chest pain Problems breathing Seizure activity Partial or complete paralysis of a body part, slurred speech, weakness or drooping of the face, or a sudden inability to walk or hold your balance Allergies/Adverse Reactions: Allergies peanut Allergy (Verified 04/04/19 09:36) Shortness of breath Medications to take at Discharge Pnv No.95/Ferrous Fum/Folic AC [ Formula] 1 ea PO DAILY 08/11/18 Nitrofurantoin Monohyd/M-Cryst [Nitrofurantoin Haskell-Mcr 100 mg] 100 mg PO BID 04/04/19 Naproxen [Naprosyn] 250 - 500 mg PO Q8H PRN PRN #30 tab 04/05/19 Please Follow Up With: Amanda Goldberg MD - [phone] When: Call to make an appointment with your doctor in 6 weeks. If you had elevated Blood pressure or 4th degree laceration you will need to be seen in 2 weeks. Primary Care Physician: Jose Roberto Carrera DO [Primary Care Provider] - Test Results: Test results from this visit will be discussed in further detail at your follow-up appointment, if applicable.
--- NOTE | 2019-04-05 14:18 | NURSING ---
RN notified Dr. Baldwin, sports psychologist, of pt changing shellie litter during . No further orders at this time.
[2019-04-05] MEDS: Acetaminophen 500 MG Tablet 1000 MG PO (18:14)
[2019-04-06 01:50] VITALS: BP 104/64; PULSE 95; RESP 16; TEMP 36.9; O2SAT 97
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
[2019-04-06] MEDS: Acetaminophen 500 MG Tablet 1000 MG PO (06:14)
[2019-04-06 08:45] VITALS: BP 119/77; PULSE 98; RESP 18; TEMP 36.9
[2019-04-06] MEDS: Naproxen 250 MG Tablet 500 MG PO (08:52)
[2019-04-06 15:30] VITALS: BP 121/75; PULSE 97; RESP 20; TEMP 37.1
--- NOTE | 2019-04-06 19:15 | CASEMGMT ---
SOCIAL WORK REFERRAL FOR HELP ME GROW SUBMITTED.
[2019-04-06 20:06] VITALS: BP 118/72; PULSE 93; RESP 14; TEMP 37.1
[2019-04-07 02:51] VITALS: BP 118/81; PULSE 89; RESP 16; TEMP 37.1
[2019-04-07] MEDS: oxyCODONE 5 MG Tablet PO (02:55)
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
[2019-04-07 09:00] VITALS: BP 116/57; PULSE 98; RESP 17; TEMP 36.5
[2019-04-07] MEDS: Naproxen 250 MG Tablet 500 MG PO (15:26)
[2019-04-07 15:27] VITALS: BP 107/60; PULSE 86; RESP 16; TEMP 36.4
== END 2019-04-07 16:00 | disposition home or self-care (01) | DRG 560 ==
PROVIDERS: Admitting Provider Obstetrics & Gynecology; Family Provider Student in an Organized Health Care Education/Training Program; PCP Student in an Organized Health Care Education/Training Program; Visit Provider Obstetrics & Gynecology
DX: O75.2 Pyrexia during labor, not elsewhere classified (principal); O48.0 Post-term pregnancy; Z3A.40 40 weeks gestation of pregnancy; O77.0 Labor and delivery complicated by meconium in amniotic fluid; O70.1 Second degree perineal laceration during delivery; O76 Abnormality in fetal heart rate and rhythm complicating labor and delivery; Z37.0 Single live birth
CPT/HCPCS: 59025; 59050; 84112; 85025; 86850; 86900; 86901; 99218; J7120; A4216; G0378; J2405

== ENCOUNTER 2019-04-09 02:15 | Emergency (ER) | payer MEDICAID, SELFPAY ==
[2019-04-09 02:18] VITALS: BP 125/108; PULSE 95; RESP 15; TEMP 36.7; O2SAT 98; BMI 37.3
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
[2019-04-09 03:03] LABS: Absolute Lymphocyte Count 1.68 X10^3/uL (0.83-4.51); Absolute Neutrophil Count 8.5 X10^3/uL (2.0-7.7); Basophil# 0.03 X10^3/uL; Basophil% 0.3 % (0-1); Eosinophils% 2.6 % (0-5); Hematocrit 26.1 % (37-47); Hemoglobin 8.4 g/dL (12.0-15.0); Lymphocyte # 1.68 X10^3/ul (4.0); Lymphocyte % 14.8 % (19-41); Mean Corp Hgb Conc 32.2 g/dL (32-36); Mean Corpuscular Hgb 29.2 pg (27.0-32.0); Mean Corpuscular Volume 90.6 fL (81-99); Mean Platelet Vol. 9.4 fl (6.2-12.0); Monocyte# 0.62 X10^3/uL; Monocyte% 5.5 % (0-10); NRBC Flagged by Analyzer 0 % (0-5); Neutrophil % 74.9 % (47-70); Platelet Count 137 K/mm3 (150-450); RBC Distribution Width CV 15.9 % (11.6-14.6); RBC Distribution Width SD 51.8 fl (35.1-43.9); Red Blood Count 2.88 M/mm3 (4.2-5.4); White Blood Count 11.3 K/mm3 (4.4-11.0)
[2019-04-09 03:14] LABS: Mucous, Urine 0 SEEN /hpf (<or=2+); Squamous Epithelial Cells - UA 0 SEEN /hpf (5-10)
[2019-04-09] MEDS: 0.9% Normal Saline 1,000 ML 150 ML IV (03:16)
[2019-04-09] MEDS: Ketorolac 15 MG/ML Vial IV (03:16)
[2019-04-09] MEDS: Morphine 4 MG/ML Syringe IV (03:16)
[2019-04-09 03:17] LABS: Anion Gap 6 (5-15); BUN 14 mg/dL (7-18); BUN/Creat Ratio 17.5 RATIO (10-20); Calcium,Total 7.5 mg/dL (8.5-10.1); Chloride 112 mmol/L (98-107); EST Glomerular Filtration Rate 91 mL/min (>60); Est Glom Filt Rate - Afr Amer 110 mL/min (>60); Estimated Creatinine Clearance 92.02 ml/min; Glucose 76 mg/dL (74-106); Sodium Level 143 mmol/L (136-145)
[2019-04-09 03:22] LABS: Bacteria 3+ /hpf (None Seen); Color, Urine Yellow (Yellow); Glucose, Dipstick Normal (Normal); Ketone-Dipstick 5 mg/dl (Negative); Leukocyte Esterase-Dipstick 500 /ul (Negative); Nitrite-Dipstick Positive (Negative); Occult Blood-Urine 250 /ul (Negative); Protein-Dipstick 30 mg/dl (Negative); Red Blood Cells-Urine 5-10 SEEN /hpf (0-5); Urine Bilirubin Dipstick Negative (Negative); Urine Clarity Cloudy (Clear); Urine Urobilinogen Normal (Normal); White Blood Cells >100 SEEN /hpf (0-5)
--- NOTE | 2019-04-09 03:25 | CT_ITS ---
STUDY: CT ABDOMEN AND PELVIS WITHOUT CONTRAST REASON FOR EXAM: Female, 28 years old. LOWER BACK PAIN/CRAMPING, POST RECEIVED EPIDURAL 12-27, HX OVARIAN CYTS RADIATION DOSAGE (If Supplied By Facility): CTDIvol = ( 16.89 ) mGy, DLP = ( 810.26 ) mGycm TECHNIQUE: Transaxial images were obtained from the dome of the diaphragm to the symphysis pubis without oral contrast, and without intravenous contrast. Sagittal and coronal images were reconstructed. Individualized dose optimization techniques were used for this CT. COMPARISON: CT abdomen and pelvis 04/09/2018, obstetrical ultrasound 03/13/2019. FINDINGS: There is a limited non-IV and oral contrast study. There is mild bilateral breast skin thickening. The visualized lung bases are unremarkable. The visualized portions of the heart are within normal limits. Normal liver. There is mild distended gallbladder. Normal spleen. There is mild diffuse pancreatic enlargement compared to prior study. There is no fluid around the pancreas. Normal bilateral adrenal glands. Normal right kidney. There is 3 mm left renal calculus or ureteral calculi Normal visualized stomach. Normal small intestine. There is a moderate colonic diverticula. There is a 2 cm linear hyperdensity within the proximal sigmoid colon. There are no adjacent inflammatory changes. The appendix is visualized and appears normal. Normal abdominal aorta. Normal inferior vena cava. Normal retroperitoneum. Normal urinary bladder. The uterus is enlarged. There is hyperdensity within the uterus possibly within the endometrium. There are questionable small extraluminal air bubbles.. Normal abdominal wall. Normal osseous structures. Mild lower pelvic skin thickening and stranding within the subcutaneous fat. CT/Abdomen/Pelvis without Cont IMPRESSION: Limited non-IV and nonoral contrast study. Post uterus, the uterus is enlarged, there is hyperdensity within the uterus possibly within the endometrium and could represent changes, hematoma. However retained products of conception also cannot be excluded. A follow-up pelvic and transvaginal ultrasound is recommended to further evaluate to exclude retained products of conception. 2 cm linear hyperdensity within the proximal sigmoid colon which likely is a fish bone or less likely chicken bone. Other ingested material is also less likely. Follow-up CT to document passage is recommended, there are no adjacent inflammatory changes. Mild diffuse pancreatic enlargement correlation with laboratory values to exclude mild pancreatitis is recommended Mild gallbladder distention Mild bilateral breast skin thickening likely changes that should be correlated with physical exam 3 mm left renal calculus Few questionable extraluminal air bubbles which may be post related Mild lower anterior pelvic skin thickening, the stranding within the subcutaneous fat is likely postsurgical versus less likely cellulitis Electronically Signed: Andrew Guan, at 5:14 EST Tel , Service support ,
[2019-04-09 04:16] VITALS: BP 125/69; PULSE 78; RESP 16; O2SAT 95
[2019-04-09] MEDS: Cephalexin 250 MG Capsule 500 MG PO (05:53)
[2019-04-09 05:54] VITALS: BP 120/77; PULSE 86; RESP 16; O2SAT 97
== END 2019-04-09 06:12 | disposition home or self-care (01) ==
PROVIDERS: Emergency Provider Emergency Medicine; Family Provider Student in an Organized Health Care Education/Training Program; PCP Student in an Organized Health Care Education/Training Program
DX: O86.20 Urinary tract infection following delivery, unspecified (principal); O9A.23 Injury, poisoning and certain other consequences of external causes complicating the puerperium; S39.012A Strain of muscle, fascia and tendon of lower back, initial encounter; O90.81 Anemia of the puerperium; D64.9 Anemia, unspecified; X58.XXXA Exposure to other specified factors, initial encounter; Y93.9 Activity, unspecified; Y92.9 Unspecified place or not applicable; R93.89 Abnormal findings on diagnostic imaging of other specified body structures
CPT/HCPCS: 74176; 76830; 76856; 80048; 81001; 85025; 87086; 87088; 87186; 96361; 96374; 96375; 99284

== ENCOUNTER → 2019-04-09 14:13 | Outpatient (CLI) | payer MEDICAID, SELFPAY ==
[2019-04-09 02:18] VITALS: BMI 37.3
--- NOTE | 2019-04-09 14:14 | US_ITS ---
STUDY: ULTRASOUND OF THE FEMALE PELVIS - COMPLETE REASON FOR EXAM: Female, [address] , 5 DAYS POST LMP: Unknown. TECHNIQUE: Transabdominal and Transvaginal. TECHNICAL QUALITY: Adequate. COMPARISON: CT. FINDINGS: The uterus is anteverted and is in a midline position. The uterus measures 18.7 x 14.2 x 10.6 cm. Normal uterine cervix. The endometrium measures 15 mm in thickness, and is heterogenous. There is no demonstrated endometrial mass. There is no demonstrated myometrial mass. I.U.D. - The patient does not have an I.U.D. The right ovary is visualized. The right ovary measures 4.9 x 3.8 x 3.2 cm. There is no right ovarian cyst or ovarian mass. There is no visualized right adnexal mass or complex lesion. There is normal arterial and normal venous vascularity. The left ovary is visualized. The left ovary measures 4.9 x 3.8 x 2.5 cm. There is no left ovarian cyst or ovarian mass. There is no visualized left adnexal mass or complex lesion. There is normal arterial and normal venous vascularity. There is no fluid in the cul-de-sac. The visualized bladder is unremarkable. US/Pelvic (Non ) IMPRESSION: Heterogeneous enlarged endometrium suggesting retained products of conception versus hematoma. Electronically Signed: Martín Shay MD at 15:30 EST , Service support ,
--- NOTE | 2019-04-09 14:14 | US_ITS ---
STUDY: ULTRASOUND OF THE FEMALE PELVIS - COMPLETE REASON FOR EXAM: Female, [address] , 5 DAYS POST LMP: Unknown. TECHNIQUE: Transabdominal and Transvaginal. TECHNICAL QUALITY: Adequate. COMPARISON: CT. FINDINGS: The uterus is anteverted and is in a midline position. The uterus measures 18.7 x 14.2 x 10.6 cm. Normal uterine cervix. The endometrium measures 15 mm in thickness, and is heterogenous. There is no demonstrated endometrial mass. There is no demonstrated myometrial mass. I.U.D. - The patient does not have an I.U.D. The right ovary is visualized. The right ovary measures 4.9 x 3.8 x 3.2 cm. There is no right ovarian cyst or ovarian mass. There is no visualized right adnexal mass or complex lesion. There is normal arterial and normal venous vascularity. The left ovary is visualized. The left ovary measures 4.9 x 3.8 x 2.5 cm. There is no left ovarian cyst or ovarian mass. There is no visualized left adnexal mass or complex lesion. There is normal arterial and normal venous vascularity. There is no fluid in the cul-de-sac. The visualized bladder is unremarkable. US/Transvaginal Non- IMPRESSION: Heterogeneous enlarged endometrium suggesting retained products of conception versus hematoma. Electronically Signed: Martín Shay MD at 15:30 EST , Service support ,
== END ==
PROVIDERS: Family Provider Student in an Organized Health Care Education/Training Program; PCP Student in an Organized Health Care Education/Training Program; Referring Provider Obstetrics & Gynecology; Visit Provider Obstetrics & Gynecology
DX: R93.89 Abnormal findings on diagnostic imaging of other specified body structures (principal)
CPT/HCPCS: 76830; 76856

== ENCOUNTER → 2019-04-11 08:51 | Outpatient (CLI) | payer MEDICAID, SELFPAY ==
[2019-04-11 08:09] VITALS: BMI 37.3
[2019-04-11 09:32] LABS: Hematocrit 25.1 % (37-47); Hemoglobin 8.1 g/dL (12.0-15.0); Mean Corp Hgb Conc 32.3 g/dL (32-36); Mean Corpuscular Hgb 28.6 pg (27.0-32.0); Mean Corpuscular Volume 88.7 fL (81-99); Mean Platelet Vol. 9.5 fl (6.2-12.0); Platelet Count 178 K/mm3 (150-450); RBC Distribution Width CV 16.1 % (11.6-14.6); RBC Distribution Width SD 52.2 fl (35.1-43.9); Red Blood Count 2.83 M/mm3 (4.2-5.4); White Blood Count 8.9 K/mm3 (4.4-11.0)
[2019-04-11] MEDS: Dextrose 5%-Lactated Ringers 1,000 ML 999 ML IV (09:32)
[2019-04-11] MEDS: Ondansetron 4 MG/2 ML Vial IV (09:34)
[2019-04-11 09:35] VITALS: BP 127/78; PULSE 82; RESP 16; TEMP 36.6; O2SAT 97; BMI 35.9
[2019-04-11 09:48] LABS: ALB/GLOB Ratio 0.7 RATIO (0.9-2.4); AST(SGOT) 38 U/L (15-37); Alanine Aminotransfer ALT/SGPT 85 U/L (13-56); Albumin, Serum 2.4 g/dL (3.2-5.0); Alkaline Phosphatase 143 U/L (45-117); Anion Gap 7 (5-15); BUN 11 mg/dL (7-18); BUN/Creat Ratio 13.9 RATIO (10-20); Calcium,Total 7.6 mg/dL (8.5-10.1); Chloride 115 mmol/L (98-107); Creatinine, Serum 0.79 mg/dL (0.55-1.02); EST Glomerular Filtration Rate 93 mL/min (>60); Est Glom Filt Rate - Afr Amer 112 mL/min (>60); Estimated Creatinine Clearance 93.19 ml/min; Globulin 3.5 g/dL (2.2-4.2); Glucose 71 mg/dL (74-106); Lipase 71 U/L (73-393); Potassium 4.2 mmol/L (3.5-5.1); Protein, Total 5.9 g/dL (6.4-8.2); Sodium Level 143 mmol/L (136-145)
[2019-04-11 11:46] VITALS: BP 118/75; PULSE 68; RESP 16; TEMP 37.1
== END ==
PROVIDERS: Family Provider Student in an Organized Health Care Education/Training Program; PCP Student in an Organized Health Care Education/Training Program; Referring Provider Obstetrics & Gynecology; Visit Provider Obstetrics & Gynecology
DX: E86.0 Dehydration (principal)
CPT/HCPCS: 96365; 96367; 96375; 80053; 83690; 85027; J7050; A4216; J2405

== ENCOUNTER → 2019-07-19 | Outpatient (CLI) | payer BC, MEDICAID, SELFPAY ==
[2019-07-19 11:16] VITALS: BMI 35.9
== END | disposition home or self-care (01) ==
LOC: LABSPEC 12:43
PROVIDERS: PCP Student in an Organized Health Care Education/Training Program; Referring Provider Nurse Practitioner Women's Health; Visit Provider Nurse Practitioner Women's Health
DX: N89.8 Other specified noninflammatory disorders of vagina (principal)
CPT/HCPCS: 87070; 87106; 87205

== ENCOUNTER 2019-08-19 18:59 | Emergency (ER) | payer MEDICAID, SELFPAY ==
[2019-07-19 11:16] VITALS: BMI 35.9
[2019-08-19 19:00] VITALS: BP 140/79; PULSE 86; RESP 18; TEMP 36.6; O2SAT 99; BMI 34.3
--- NOTE | 2019-08-19 20:18 | ED.RN ---
patient left without being seen at 191
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
== END 2019-08-19 19:15 | disposition left against medical advice (07) ==
LOC: ED 19:23
PROVIDERS: Emergency Provider Emergency Medicine; PCP Student in an Organized Health Care Education/Training Program
DX: R69 Illness, unspecified (principal); Z53.21 Procedure and treatment not carried out due to patient leaving prior to being seen by health care provider

== ENCOUNTER 2019-09-26 11:47 | Emergency (ER) | payer BC, MEDICAID, SELFPAY ==
[2019-08-21 09:44] VITALS: BMI 31.4
[2019-09-26 11:50] VITALS: BP 108/68; PULSE 86; RESP 18; TEMP 36.8; O2SAT 98; BMI 24.2
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
[2019-09-26 14:19] VITALS: BP 94/60; PULSE 85; RESP 16; O2SAT 99
== END 2019-09-26 14:20 | disposition home or self-care (01) ==
PROVIDERS: Emergency Provider Emergency Medicine; PCP Student in an Organized Health Care Education/Training Program
DX: F07.81 Postconcussional syndrome (principal); V48.5XXD Car driver injured in noncollision transport accident in traffic accident, subsequent encounter
CPT/HCPCS: 70450; 72125; 99282

== ENCOUNTER 2019-10-14 12:37 | Emergency (ER) | payer BC, MEDICAID, SELFPAY ==
[2019-10-09 15:08] VITALS: BMI 24.2
[2019-10-14 12:38] VITALS: BP 119/67; PULSE 75; RESP 18; TEMP 36.5; O2SAT 96; BMI 30.9
--- NOTE | 2019-10-14 13:00 | EKG12_ITS ---
Test Reason : CP Blood Pressure : / mmHG Vent. Rate : 069 BPM Atrial Rate : 069 BPM P-R Int : 130 ms QRS Dur : 088 ms QT Int : 422 ms P-R-T Axes : 028 056 026 degrees QTc Int : 452 ms Normal sinus rhythm Normal ECG Confirmed by MARGO VORA, TRANG ([id number]), supervising editor trailer FAYE MCGHEE ([id number]) on 10/16/2019 10:05:07 AM Referred By: FELICE/ Confirmed By:TRANG ARAGON MD
--- NOTE | 2019-10-14 13:00 | RAD_ITS ---
STUDY: X-RAY CHEST REASON FOR EXAM: Female, 29 years old. Sudden onset chest pain, -- left arm, shoulder, neck pain -- SOB TECHNIQUE: PA and lateral views of the chest. COMPARISON: Comparison is made with prior examination dated February 18, 2018. FINDINGS: EKG electrodes are seen. The lungs are clear and expanded. Scattered calcified granulomas. There is no demonstrated pleural abnormality. Normal size heart. Normal mediastinum and rafa. Normal visualized pulmonary arteries. Normal visualized aortic arch and descending thoracic aorta. Normal visualized thoracic spine. Normal visualized ribs, clavicles, and shoulders. There is no demonstrated abnormality of the visualized soft tissue structures of the upper abdomen. RAD/Chest PA and Lateral IMPRESSION: Normal x-ray examination of the chest. Electronically Signed: Kvng Chan, at 14:35 EDT , Service support ,
[2019-10-14] MEDS: Aspirin 81 MG TAB.CHEW 324 MG PO (13:07)
[2019-10-14 13:25] LABS: Absolute Lymphocyte Count 1.91 X10^3/uL (0.83-4.51); Absolute Neutrophil Count 3.6 X10^3/uL (2.0-7.7); Basophil# 0.03 X10^3/uL; Basophil% 0.5 % (0-1); Eosinophils% 3.2 % (0-5); Hematocrit 38.6 % (37-47); Hemoglobin 12.8 g/dL (12.0-15.0); Lymphocyte # 1.91 X10^3/ul (4.0); Lymphocyte % 30.4 % (19-41); Mean Corp Hgb Conc 33.2 g/dL (32-36); Mean Corpuscular Hgb 28.7 pg (27.0-32.0); Mean Corpuscular Volume 86.5 fL (81-99); Monocyte# 0.52 X10^3/uL; Monocyte% 8.3 % (0-10); NRBC Flagged by Analyzer 0 % (0-5); Neutrophil # 3.61 X10^3/uL (2.7-7.7); Neutrophil % 57.4 % (47-70); Platelet Count 225 K/mm3 (150-450); RBC Distribution Width CV 13.2 % (11.6-14.6); RBC Distribution Width SD 41.3 fl (35.1-43.9); Red Blood Count 4.46 M/mm3 (4.2-5.4); White Blood Count 6.3 K/mm3 (4.4-11.0)
[2019-10-14 13:36] LABS: D-Dimer Quantitative (DVT/PE) 0.35 FEU/ug/m (0.27-0.49)
[2019-10-14 13:56] LABS: Anion Gap 6 (5-15); BUN 12 mg/dL (7-18); BUN/Creat Ratio 15.1 RATIO (10-20); Calcium,Total 8.9 mg/dL (8.5-10.1); Chloride 107 mmol/L (98-107); EST Glomerular Filtration Rate 92 mL/min (>60); Est Glom Filt Rate - Afr Amer 111 mL/min (>60); Estimated Creatinine Clearance 91.21 ml/min; Glucose 86 mg/dL (74-106); Potassium 3.8 mmol/L (3.5-5.1); Sodium Level 140 mmol/L (136-145)
[2019-10-14 13:57] LABS: Internal QC Validated? YES +Cl - CLEAR BKGD; Pregnancy, Serum, hCG Quali. NEGATIVE Negative
--- NOTE | 2019-10-14 14:11 | ED.VIS.CHEST ---
History of Present Illness Chief Complaint: Chest Pain Informant: Patient Narrative: Patient presenting for evaluation secondary to chest pain. Patient reports that just prior to arrival she developed left-sided chest pain that went down her left arm. She reports it somewhat worse with taking deep breath. She does endorse that there is some mild shortness of breath associated with this. She is never really had any prior similar episodes in the past. Patient reports that she was in her car when this started and it has now been going on for about 2 hours. Patient denies any personal or family history of hypercoagulability, although she is unsure of her complete family history because mother was adopted. Patient denies any DVT or PE risk factors. Patient denies any hypertension hyperlipidemia, smoking, high cholesterol. She denies any recent infectious signs or symptoms. Review of systems otherwise negative. Past Medical History - Allergies and Home Meds Allergies/Adverse Reactions: Allergies peanut Allergy (Verified 10/14/19 12:38) Shortness of breath Primary Care Physician: Jose Roberto Carrera DO [Primary Care Provider] - Prior records reviewed: Yes Past Medical History: None Surgical History: no surgical history, - - ear surgeries when she was little, wisdom teeth and tonsils out. Lives: Spouse/ Significant Other Smoking Status: Never smoker Alcohol: None Drugs: None - Family History Maternal Family History: Family History (Last Reviewed 10/09/19 @ 15:08 by Grecia Kenyon) Grandmother Diabetes Mother Fibromyalgia Father Bipolar 1 disorder Family History: Reports: No pertinent history Review of Systems All systems negative except as indicated General: Denies: Chills, Fever, Sweats Eyes: Denies: Visual changes - bilaterally, Diplopia ENT: Denies: Rhinorrhea, Sore throat Cardiovascular: Reports: Chest pain Respiratory: Reports: Dyspnea Gastrointestinal: Denies: Abdominal pain, Nausea, Vomiting, Diarrhea, Melena, Hematochezia Genitourinary: Denies: Dysuria, Hematuria, Frequency Musculoskeletal: Denies: Back pain, Extremity Pain Skin: Denies: Rash, Wounds Neurological: Denies: Headache, Weakness, Numbness Physical Exam Vital Signs/Narrative: Vital Signs Temp Pulse Resp BP Pulse Ox 10/14/19 12:38 97.7 F L 75 18 119/67 96 Inital Vital Signs reviewed: Yes General: Well nourished, Well developed, No Acute Distress Head: Normocephalic, Atraumatic Eyes: Perrl, EOMI ENT: Moist mucous membranes, No rhinorrhea Neck: Supple, Nontender Cardiovascular: Regular rate, Regular rhythm, No murmurs Respiratory: No distress, CTA bilaterally, Chest nontender, - - No evidence of overlying vesicular rash Abdomen: Soft, Nontender, Nondistended, Normal bowel sounds Back: Nontender, Normal Inspection Extremities: Nontender, No edema. Negative for: Calf Tenderness - Abs are supple no palpable cord Skin: Normal color, No rash Neurological: Alert, Oriented x3, Cranial nerves II-XII grossly intact, Normal Strength, Normal Sensation Psychological: Normal affect, Normal Mood Diagnostic/Tx/Re-eval Laboratory Data 10/14/19 10/14/19 10/14/19 13:11 13:11 13:11 WBC 6.3 RBC 4.46 Hgb 12.8 Hct 38.6 MCV 86.5 MCH 28.7 MCHC 33.2 RDW Std Deviation 41.3 RDW Coeff of Justin 13.2 Plt Count 225 MPV 10.0 Immature Gran % (Auto) 0.200 Neut % (Auto) 57.4 Lymph % (Auto) 30.4 [place] % (Auto) 8.3 Eos % (Auto) 3.2 Baso % (Auto) 0.5 Absolute Neuts (auto) 3.6 Absolute Lymphs (auto) 1.91 Nucleated RBC % 0 D-Dimer Quant (PE/DVT) 0.35 Sodium 140 Potassium 3.8 Chloride 107 Carbon Dioxide 27.0 Anion Gap 6 BUN 12 Creatinine 0.80 Estim Creat Clear Calc 91.21 Est GFR (MDRD) Af Amer 111 Est GFR (MDRD) Non-Af 92 BUN/Creatinine Ratio 15.1 Glucose 86 Calcium 8.9 Troponin I < 0.015 Serum , Qual 10/14/19 13:11 WBC RBC Hgb Hct MCV MCH MCHC RDW Std Deviation RDW Coeff of Justin Plt Count MPV Immature Gran % (Auto) Neut % (Auto) Lymph % (Auto) [place] % (Auto) Eos % (Auto) Baso % (Auto) Absolute Neuts (auto) Absolute Lymphs (auto) Nucleated RBC % D-Dimer Quant (PE/DVT) Sodium Potassium Chloride Carbon Dioxide Anion Gap BUN Creatinine Estim Creat Clear Calc Est GFR (MDRD) Af Amer Est GFR (MDRD) Non-Af BUN/Creatinine Ratio Glucose Calcium Troponin I Serum , Qual NEGATIVE - EKG Initial EKG Interpretation: - - Sinus rhythm at [address] segments normal T waves normal MI and QTc intervals no evidence of acute ischemia or arrhythmia. No evidence of WPW or [place] morphology. - Medical Decision Making Patient presented for evaluation secondary to chest pain. EKG was found to be unremarkable. PA and lateral chest x-ray by my personal review shows no evidence of acute cardiopulmonary pathology normal cardiac silhouette normal lungs mild scoliosis. CBC, chemistry, troponin, d-dimer found to be unremarkable. test found to be negative. Patient's heart score is in the low risk category, is a maximum of may be 1. She does not require admission or further observation. Patient was given reassurance. Patient reported that her symptoms started when she was pulling out a family members driveway that has very poor visibility and she felt significantly anxious. This is potentially the cause of this. Patient was discharged in stable condition. ED Disposition - Plan for ED Patient: Disposition: Home or Assisted Living Diagnosis: Chest pain, Anxiety Instructions: ED Chest Pain NonCardiac Referrals: Jose Roberto Carrera DO [Primary Care Provider] - As Needed
[2019-10-14 15:05] VITALS: BP 100/74; PULSE 68; RESP 16; O2SAT 97
== END 2019-10-14 15:05 | disposition home or self-care (01) ==
PROVIDERS: Emergency Provider Emergency Medicine; PCP Student in an Organized Health Care Education/Training Program
DX: R07.9 Chest pain, unspecified (principal); F41.9 Anxiety disorder, unspecified
CPT/HCPCS: 71046; 80048; 84484; 84703; 85025; 85379; 93005; 99285

== ENCOUNTER → 2019-10-16 13:49 | Outpatient (CLI) | payer BC, MEDICAID, SELFPAY ==
[2019-10-09 15:08] VITALS: BMI 24.2
[2019-10-14 12:38] VITALS: BMI 30.9
--- NOTE | 2019-10-16 13:51 | US_ITS ---
STUDY: ULTRASOUND OF THE FEMALE PELVIS - COMPLETE REASON FOR EXAM: Female, 29 years old. IUD PLACEMENT CHECK LMP: September 28, 2019. TECHNIQUE: Transabdominal and Transvaginal TECHNICAL QUALITY: Adequate. COMPARISON: None. FINDINGS: The uterus is retroverted and is in a midline position. The uterus measures 7.3 x 5.1 x 4.3 cm. Normal uterine cervix. The endometrium measures 6 mm in thickness, and is hyperechoic. There is no demonstrated endometrial mass. There is no demonstrated myometrial mass. There is an IUD in the fundal endometrium. 3.8 x 2.1 x 2.1 cm The right ovary measures cm. There is no right ovarian cyst or ovarian mass. There is no visualized right adnexal mass or complex lesion. There is normal arterial and normal venous vascularity. The left ovary is visualized. The left ovary measures 3.6 x 2.0 x 1.8 cm. There is no left ovarian cyst or ovarian mass. There is no visualized left adnexal mass or complex lesion. There is normal arterial and normal venous vascularity. There is no fluid in the cul-de-sac. The pre void volume of the bladder was 310 ml. The urinary bladder is grossly unremarkable. Polycystic ovary disease: No. US/Transvaginal Non- IMPRESSION: IUD within the fundal endometrium. This study is otherwise unremarkable Electronically Signed: Marcial Severino DO at 23:25 EDT Tel [phone], Service support ,
--- NOTE | 2019-10-16 13:51 | US_ITS ---
STUDY: ULTRASOUND OF THE FEMALE PELVIS - COMPLETE REASON FOR EXAM: Female, 29 years old. IUD PLACEMENT CHECK LMP: September 28, 2019. TECHNIQUE: Transabdominal and Transvaginal TECHNICAL QUALITY: Adequate. COMPARISON: None. FINDINGS: The uterus is retroverted and is in a midline position. The uterus measures 7.3 x 5.1 x 4.3 cm. Normal uterine cervix. The endometrium measures 6 mm in thickness, and is hyperechoic. There is no demonstrated endometrial mass. There is no demonstrated myometrial mass. There is an IUD in the fundal endometrium. 3.8 x 2.1 x 2.1 cm The right ovary measures cm. There is no right ovarian cyst or ovarian mass. There is no visualized right adnexal mass or complex lesion. There is normal arterial and normal venous vascularity. The left ovary is visualized. The left ovary measures 3.6 x 2.0 x 1.8 cm. There is no left ovarian cyst or ovarian mass. There is no visualized left adnexal mass or complex lesion. There is normal arterial and normal venous vascularity. There is no fluid in the cul-de-sac. The pre void volume of the bladder was 310 ml. The urinary bladder is grossly unremarkable. Polycystic ovary disease: No. US/Pelvic (Non ) IMPRESSION: IUD within the fundal endometrium. This study is otherwise unremarkable Electronically Signed: Marcial Severino DO at 23:25 EDT Tel [phone], Service support ,
== END ==
PROVIDERS: PCP Student in an Organized Health Care Education/Training Program; Referring Provider Nurse Practitioner Women's Health; Visit Provider Nurse Practitioner Women's Health
DX: T83.32XA Displacement of intrauterine contraceptive device, initial encounter (principal)
CPT/HCPCS: 76830; 76856

== ENCOUNTER → 2019-10-29 | Outpatient (CLI) | payer BC, MEDICAID, SELFPAY ==
[2019-10-29 14:38] VITALS: BMI 30.9
== END | disposition home or self-care (01) ==
LOC: LABSPEC 16:26
PROVIDERS: PCP Student in an Organized Health Care Education/Training Program; Referring Provider Nurse Practitioner Women's Health; Visit Provider Nurse Practitioner Women's Health
DX: N89.8 Other specified noninflammatory disorders of vagina (principal)
CPT/HCPCS: 87070; 87205

== ENCOUNTER 2019-12-03 11:38 | Emergency (ER) | payer BC, MEDICAID, SELFPAY ==
[2019-10-29 14:38] VITALS: BMI 30.9
[2019-12-03 11:38] VITALS: BP 126/76; PULSE 119; RESP 20; TEMP 37; O2SAT 97; BMI 31.7
[2019-12-03 11:40] VITALS: BP 126/76; PULSE 119; RESP 20; TEMP 37; O2SAT 97
--- NOTE | 2019-12-03 12:18 | ED.DCSUM_ITS ---
History of Present Illness Chief Complaint: Bite Informant: Patient Onset: Today Narrative: 29-year-old female presenting with vertiginous symptoms. She states she started feeling dizzy this morning. She had a fever of 100.1 as well. She denies cough or shortness of breath but does states she has body aches. She states that last night she had some nausea but was able to eat and drink today. She has had some diarrhea associated with her symptoms as well. She denies any known sick contacts. She states she has a history of seizure disorder but no longer has to take medications for seizure. Denies urinary complaints. She is not concerned for . - Past Medical History (1) depression Status: Chronic Comment: zoloft, and counseling recommended Past Medical History - Allergies and Home Meds Allergies/Adverse Reactions: Allergies peanut Allergy (Verified 12/03/19 11:46) Shortness of breath Primary Care Physician: Jose Roberto Carrera DO [Primary Care Provider] - Prior records reviewed: Yes Surgical History: no surgical history, noncontributory, - - ear surgeries when she was little, wisdom teeth and tonsils out. Lives: Spouse/ Significant Other Smoking Status: Never smoker Alcohol: None Drugs: None - Family History Maternal Family History: Family History (Last Reviewed 10/29/19 @ 14:13 by Belinda Hill) Grandmother Diabetes Mother Fibromyalgia Father Bipolar 1 disorder Family History: Reports: No pertinent history Review of Systems General: Reports: Chills, Fever, Malaise Eyes: Reports: - - Vertiginous dizziness ENT: Denies: Bilateral ear pain, Left ear pain, Rhinorrhea Cardiovascular: Denies: Chest pain, Palpitations Respiratory: Denies: Dyspnea, Cough Gastrointestinal: Reports: Nausea, Diarrhea. Denies: Abdominal pain, Vomiting Genitourinary: Denies: Dysuria, Hematuria Musculoskeletal: Reports: Myalgias. Denies: Arthralgias Skin: Denies: Rash, Abscess Neurological: Reports: Headache Physical Exam Vital Signs/Narrative: Vital Signs Temp Pulse Resp BP Pulse Ox 12/03/19 11:40 98.6 F 119 H 20 H 126/76 H 97 12/03/19 11:38 98.6 F 119 H 20 H 126/76 H 97 Inital Vital Signs reviewed: Yes General: Well nourished, Well developed Head: Normocephalic, Atraumatic Eyes: Perrl, EOMI - Nystagmus with [place] exam ENT: Moist mucous membranes. Negative for: No rhinorrhea Cardiovascular: Regular rate, Regular rhythm Respiratory: No distress, CTA bilaterally Extremities: Nontender, No edema Skin: Normal color, No rash Neurological: Alert, Oriented x3, Cranial nerves II-XII grossly intact Psychological: Normal affect Diagnostic/Tx/Re-eval - Medical Decision Making Patient presents with viral symptoms as well as symptoms of vertigo. This was reproducible on exam with and she does have nystagmus with it. She was given meclizine and Phenergan and her symptoms did improve. Given that she has a fever and myalgias I will test her for COVID?19. She stated she will go home and self quarantine. She stated she did not need a work note. I will discharge her home with return precautions. ED Disposition - Plan for ED Patient: Disposition: Home or Assisted Living Instructions: ED Bite Cat, ED Dizziness UKO, ED Viral Syndrome Prescriptions: Amoxicillin/Potassium Clav [Augmentin 875-125 Tablet] 1 ea PO BID #20 tab Transmission Status: Received by [id number] Meclizine HCl 25 mg PO Q8H PRN PRN #20 tab.chew PRN Reason: Dizziness Transmission Status: Received by [id number] proMETHazine tablet [Phenergan] 25 mg PO Q6H PRN PRN #10 tab PRN Reason: Nausea Transmission Status: Received by [id number] Referrals: Jose Roberto Carrera DO [Primary Care Provider] -
[2019-12-03] MEDS: Meclizine HCl 25 MG Tablet PO (12:40)
[2019-12-03] MEDS: proMETHazine 25 MG Tablet PO (12:40)
[2019-12-03] MEDS: Diphth,Pertuss(Acell),Tet Vac 0.5 ML Vial IM (12:40)
[2019-12-03] MEDS: Amox/Clavulanate 875 MG Tablet PO (13:26)
== END 2019-12-03 13:55 | disposition home or self-care (01) ==
PROVIDERS: Emergency Provider Student in an Organized Health Care Education/Training Program; PCP Student in an Organized Health Care Education/Training Program
DX: R42 Dizziness and giddiness (principal); R50.9 Fever, unspecified; M79.10 Myalgia, unspecified site
CPT/HCPCS: 87635; 90715; 94799; 99284; U0003

== ENCOUNTER 2019-12-06 22:42 | Emergency (ER) | payer BC, MEDICAID, SELFPAY ==
[2019-12-06 22:42] VITALS: BP 131/78; PULSE 120; RESP 16; TEMP 37.7; O2SAT 99; BMI 32.1
--- NOTE | 2019-12-06 22:45 | CT_ITS ---
STUDY: CT BRAIN WITHOUT CONTRAST REASON FOR EXAM: Female, 29 years old. ACTIVELY SEIZING, NO MEDS TAKEN FOR DISORDER RADIATION DOSAGE (If Supplied By Facility): CTDIvol = ( 44.99 ) mGy, DLP = ( 762.36 ) mGycm TECHNIQUE: Transaxial CT imaging of the brain was performed without administration of intravenous contrast material. Individualized dose optimization techniques were used for this CT. COMPARISON: Head CT dated SEPTEMBER 26 2019 and February 18, 2018. FINDINGS: Normal soft tissue structures. Normal calvarium. Normal size ventricles and extra-axial spaces for the patient''s age. Normal white matter tracts of the cerebral hemispheres. Normal basal ganglia and thalami. Normal brainstem. Normal cerebellum. No hydrocephalus. There is no intracranial hemorrhage. There are no findings of an acute ischemic infarction. Normal visualized paranasal sinuses. CT/Brain/Head without Contrast IMPRESSION: No demonstrated acute or significant intracranial process. Electronically Signed: Antonio Costello MD at 23:37 EDT , Service support ,
[2019-12-06] MEDS: LORazepam 2 MG/ML Syringe 1 MG IV (22:46)
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
[2019-12-06 22:54] LABS: Absolute Lymphocyte Count 4.32 X10^3/uL (0.83-4.51); Absolute Neutrophil Count 4.8 X10^3/uL (2.0-7.7); Basophil# 0.07 X10^3/uL; Basophil% 0.7 % (0-1); Eosinophil# 0.21 X10^3/uL; Hematocrit 39.5 % (37-47); Hemoglobin 13.1 g/dL (12.0-15.0); Lymphocyte # 4.32 X10^3/ul (4.0); Lymphocyte % 41.1 % (19-41); Mean Corp Hgb Conc 33.2 g/dL (32-36); Mean Corpuscular Hgb 28.9 pg (27.0-32.0); Mean Platelet Vol. 9.7 fl (6.2-12.0); Monocyte# 1.07 X10^3/uL; Monocyte% 10.2 % (0-10); NRBC Flagged by Analyzer 0 % (0-5); Neutrophil % 45.7 % (47-70); POSITIVE MORPHOLOGY YES; Platelet Count 177 K/mm3 (150-450); RBC Distribution Width CV 13.6 % (11.6-14.6); RBC Distribution Width SD 43.4 fl (35.1-43.9); Red Blood Count 4.54 M/mm3 (4.2-5.4); White Blood Count 10.5 K/mm3 (4.4-11.0)
[2019-12-06] MEDS: 0.9% Normal Saline 1,000 ML 1000 ML IV (22:55)
[2019-12-06 22:56] VITALS: BP 131/79; PULSE 104; RESP 16; O2SAT 98
[2019-12-06 22:58] LABS: Internal QC Validated? YES +Cl - CLEAR BKGD
[2019-12-06 23:00] LABS: Pregnancy, Serum, hCG Quali. NEGATIVE Negative
[2019-12-06] MEDS: levETIRAcetam IV 1,000 MG/100 ML BAG 400 MG IV (23:05)
[2019-12-06 23:08] LABS: AST(SGOT) 41 U/L (15-37); Alanine Aminotransfer ALT/SGPT 80 U/L (13-56); Albumin, Serum 3.8 g/dL (3.2-5.0); Alkaline Phosphatase 112 U/L (45-117); Anion Gap 7 (5-15); BUN 11 mg/dL (7-18); BUN/Creat Ratio 10.7 RATIO (10-20); Calcium,Total 9.3 mg/dL (8.5-10.1); Chloride 108 mmol/L (98-107); Creatinine, Serum 1.03 mg/dL (0.55-1.02); EST Glomerular Filtration Rate 68 mL/min (>60); Est Glom Filt Rate - Afr Amer 82 mL/min (>60); Estimated Creatinine Clearance 70.85 ml/min; Globulin 3.8 g/dL (2.2-4.2); Glucose 107 mg/dL (74-106); Potassium 3.5 mmol/L (3.5-5.1); Protein, Total 7.6 g/dL (6.4-8.2); Sodium Level 142 mmol/L (136-145)
[2019-12-06 23:16] LABS: Bedside Glucose 114 mg/dL (70-110)
[2019-12-06 23:29] LABS: Differential Comment SCANNED; Differential Indicated SCAN CRITERIA MET
[2019-12-06 23:57] VITALS: BP 114/74; PULSE 104; RESP 16; TEMP 37; O2SAT 98
--- NOTE | 2019-12-07 00:05 | RAD_ITS ---
STUDY: X-RAY CHEST REASON FOR EXAM: Female, 29 years old. C/O LT SIDED CP WITH INSPIRATIONS X 5 DAYS TECHNIQUE: AP COMPARISON: 10/14/2019. FINDINGS: The lungs are clear and expanded. There is no demonstrated pleural abnormality. Normal size heart. Normal mediastinum and rafa. Normal visualized pulmonary arteries. Normal visualized aortic arch and descending thoracic aorta. Normal visualized thoracic spine. Normal visualized ribs, clavicles, and shoulders. There is no demonstrated abnormality of the visualized soft tissue structures of the upper abdomen. RAD/Chest 1 View (Portable) IMPRESSION: Normal x-ray examination of the chest. Electronically Signed: Levar Gonzalez, at 0:36 EDT Tel , Service support ,
[2019-12-07 00:20] LABS: Amphetamine Urine VISTA NEGATIVE (<1000 ng/mL); Barbiturate Urine VISTA NEGATIVE (< 200 ng/mL); Benzodiazepine Urine VISTA NEGATIVE (< 200 ng/mL); Cocaine Urine VISTA NEGATIVE (< 300 ng/mL); Ecstacy Urine VISTA NEGATIVE (< 500 ng/mL); Methadone Urine VISTA NEGATIVE (< 300 ng/mL); PCP Urine VISTA NEGATIVE (< 25 ng/mL); THC Urine VISTA NEGATIVE (< 50 ng/mL); Vista UDS pH Range 6
[2019-12-07 00:43] VITALS: BP 117/89; PULSE 92; RESP 25; O2SAT 98
[2019-12-07 01:11] VITALS: BP 119/69; PULSE 90; RESP 24; O2SAT 98
== END 2019-12-07 01:12 | disposition home or self-care (01) ==
PROVIDERS: Emergency Provider Emergency Medicine; PCP Student in an Organized Health Care Education/Training Program
DX: G40.909 Epilepsy, unspecified, not intractable, without status epilepticus (principal)
CPT/HCPCS: 70450; 71045; 80053; 80307; 80320; 82962; 84703; 85025; 96365; 96375; 99285; J7030; A4216; G0480

== ENCOUNTER 2019-12-28 19:47 | Emergency (ER) | payer BC, MEDICAID, SELFPAY ==
[2019-12-28 19:48] VITALS: BP 117/63; PULSE 100; RESP 16; TEMP 36.2; O2SAT 100; BMI 31.3
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
[2019-12-28] MEDS: Ibuprofen 600 MG Tablet PO (20:35)
[2019-12-28 22:22] VITALS: BP 101/70; PULSE 74; RESP 18; O2SAT 98
== END 2019-12-28 22:44 | disposition home or self-care (01) ==
PROVIDERS: Emergency Provider Emergency Medicine; PCP Student in an Organized Health Care Education/Training Program
DX: S09.90XA Unspecified injury of head, initial encounter (principal); S16.1XXA Strain of muscle, fascia and tendon at neck level, initial encounter; V47.5XXA Car driver injured in collision with fixed or stationary object in traffic accident, initial encounter; Y92.410 Unspecified street and highway as the place of occurrence of the external cause
CPT/HCPCS: 70450; 72125; 99283

== ENCOUNTER → 2020-02-28 09:36 | Outpatient (CLI) | payer MEDICAID, SELFPAY ==
[2020-02-28 08:12] VITALS: BMI 30.6
[2020-02-28 10:25] LABS: hCG Titer Quant., Serum 178 mIU/mL (1-3)
== END ==
PROVIDERS: PCP Student in an Organized Health Care Education/Training Program; Referring Provider Obstetrics & Gynecology; Visit Provider Obstetrics & Gynecology
DX: Z32.01 Encounter for pregnancy test, result positive (principal)
CPT/HCPCS: 36415; 84702

== ENCOUNTER → 2020-03-01 16:01 | Outpatient (CLI) | payer MEDICAID, SELFPAY ==
[2020-02-28 08:12] VITALS: BMI 30.6
[2020-03-01 17:06] LABS: hCG Titer Quant., Serum 585 mIU/mL (1-3)
== END ==
PROVIDERS: PCP Student in an Organized Health Care Education/Training Program; Visit Provider Obstetrics & Gynecology
DX: Z32.01 Encounter for pregnancy test, result positive (principal)
CPT/HCPCS: 36415; 84702

== ENCOUNTER → 2020-03-03 10:59 | Outpatient (CLI) | payer MEDICAID, SELFPAY ==
[2020-02-28 08:12] VITALS: BMI 30.6
[2020-03-03 12:25] LABS: hCG Titer Quant., Serum 1347 mIU/mL (1-3)
== END ==
PROVIDERS: PCP Student in an Organized Health Care Education/Training Program; Referring Provider Obstetrics & Gynecology; Visit Provider Obstetrics & Gynecology
DX: N91.2 Amenorrhea, unspecified (principal)
CPT/HCPCS: 36415; 84702

== ENCOUNTER → 2020-03-09 09:04 | Outpatient (CLI) | payer MEDICAID, SELFPAY ==
[2020-02-28 08:12] VITALS: BMI 30.6
--- NOTE | 2020-03-09 09:06 | US_ITS ---
STUDY: FIRST TRIMESTER OBSTETRICAL ULTRASOUND REASON FOR EXAM: Female, 29 years old dating/viabilty LMP: 01/28/2020. TECHNIQUE: Transvaginal TECHNICAL QUALITY: Adequate. PRIOR ULTRASOUND: None. FINDINGS: There is visualization of a single gestational sac in a normal intrauterine position. The mean sac diameter (MSD) measures 1.1 cm, indicating an estimated gestational age (EGA) of 5 weeks, 5 days. The gestational sac shape is within normal limits. There is a visualized yolk sac. The yolk sac measures 3.1 mm. The placenta is non-visualized. There is no demonstrated embryo ( pole). The estimated gestation age (EGA) by LMP is 5 weeks, 6 days. The estimated date of delivery (JAZ) by LMP is 11/03/2020. The estimated gestation age (EGA) by US is 5 weeks, 5 days. The estimated date of delivery (JAZ) by US is 11/04/2020. The uterus measures 7.7 cm x 5.3 cm x 4.5 cm. There is no demonstrated uterine fibroid. The cervix is closed. The right ovary measures 3.4 cm x 2.6 cm x 2.4 cm. There is no right ovarian cyst. There is no visualized right adnexal mass or complex lesion. The left ovary measures 2.9 cm x 1.4 cm x 1.7 cm. There is no left ovarian cyst. There is no visualized left adnexal mass or complex lesion. There is no fluid in the cul de sac. US/Transvaginal w/Preg US IMPRESSION: Single intrauterine gestation with mean gestational age of 5 weeks and 5 days. No pole is seen at this time. Electronically Signed: Kvng Chan, at 13:41 EST , Service support ,
== END ==
PROVIDERS: PCP Student in an Organized Health Care Education/Training Program; Referring Provider Nurse Practitioner Women's Health; Visit Provider Nurse Practitioner Women's Health
DX: Z36.89 Encounter for other specified antenatal screening (principal)
CPT/HCPCS: 76817

== ENCOUNTER → 2020-03-12 | Outpatient (CLI) | payer MEDICAID, SELFPAY ==
[2020-03-12 11:56] VITALS: BMI 31.1
== END | disposition home or self-care (01) ==
LOC: LABSPEC 16:24
PROVIDERS: PCP Student in an Organized Health Care Education/Training Program; Referring Provider Nurse Practitioner Women's Health; Visit Provider Nurse Practitioner Women's Health
DX: N39.0 Urinary tract infection, site not specified (principal)
CPT/HCPCS: 87086; 87088

== ENCOUNTER → 2020-03-18 11:24 | Outpatient (CLI) | payer MEDICAID, SELFPAY ==
[2020-02-28 08:12] VITALS: BMI 30.6
[2020-03-12 11:56] VITALS: BMI 31.1
--- NOTE | 2020-03-18 11:26 | US_ITS ---
STUDY: FIRST TRIMESTER OBSTETRICAL ULTRASOUND REASON FOR EXAM: Female, 29 years old VIABILITY LMP: 01/28/2020. TECHNIQUE: Transvaginal TECHNICAL QUALITY: Adequate. PRIOR ULTRASOUND: Comparison is made with prior study dated 03/09/2020. FINDINGS: There is visualization of a single gestational sac in a normal intrauterine position. The mean sac diameter (MSD) measures 2.56 cm, indicating an estimated gestational age (EGA) of 7 weeks, 4 days. The gestational sac shape is within normal limits. There is a visualized yolk sac. The yolk sac measures 3.5 mm. The placenta is non-visualized. There is visualization of a live embryo. The crown-rump length (CRL) measures 7.6 mm, indicating an estimated gestational age (EGA) of 6 weeks, 5 days. There is demonstrated cardiac activity with a heart rate of 117 bpm. The estimated gestation age (EGA) by LMP is 7 weeks, 1 days. The estimated date of delivery (JAZ) by LMP is 11/03/2020. The estimated gestation age (EGA) by US is 7 weeks, 1 days. The estimated date of delivery (JAZ) by US is 11/03/2020. The uterus measures 7.6 cm x 5.6 cm x 5.3 cm. There is no demonstrated uterine fibroid. The cervix is closed. The right ovary measures 2.7 cm x 2 cm x 2.3 cm. There is no right ovarian cyst. There is no visualized right adnexal mass or complex lesion. The left ovary measures 2.9 cm x 1.4 cm x 2.4 cm. There is a 1.5 cm x 1.2 cm x 1.3 cm follicle in the left ovary. There is no visualized left adnexal mass or complex lesion. There is no fluid in the cul de sac. US/Init OB < 14Wks US IMPRESSION: Single live intrauterine gestation with mean gestational age of 7 weeks and 1 day. Electronically Signed: Kvng Chan, at 13:49 EST , Service support ,
== END ==
PROVIDERS: PCP Student in an Organized Health Care Education/Training Program; Referring Provider Nurse Practitioner Women's Health; Visit Provider Nurse Practitioner Women's Health
DX: Z34.91 Encounter for supervision of normal pregnancy, unspecified, first trimester (principal)
CPT/HCPCS: 76801

== ENCOUNTER → 2020-04-01 | Outpatient (CLI) | payer MEDICAID, SELFPAY ==
[2020-04-01 09:33] VITALS: BMI 31.1
[2020-04-01 16:49] LABS: Amphetamine Urine VISTA NEGATIVE (<1000 ng/mL); Barbiturate Urine VISTA NEGATIVE (< 200 ng/mL); Benzodiazepine Urine VISTA NEGATIVE (< 200 ng/mL); Cocaine Urine VISTA NEGATIVE (< 300 ng/mL); Ecstacy Urine VISTA NEGATIVE (< 500 ng/mL); Methadone Urine VISTA NEGATIVE (< 300 ng/mL); PCP Urine VISTA NEGATIVE (< 25 ng/mL); THC Urine VISTA NEGATIVE (< 50 ng/mL); Vista UDS pH Range 6
== END | disposition home or self-care (01) ==
LOC: LABSPEC 14:18
PROVIDERS: PCP Student in an Organized Health Care Education/Training Program; Visit Provider Obstetrics & Gynecology
DX: O09.90 Supervision of high risk pregnancy, unspecified, unspecified trimester (principal); Z3A.00 Weeks of gestation of pregnancy not specified
CPT/HCPCS: 80307; 87086; 87088

== ENCOUNTER → 2020-04-29 | Outpatient (CLI) | payer MEDICAID, SELFPAY | END | disposition home or self-care (01) | LOC: LABSPEC 16:56 | PROVIDERS: PCP Student in an Organized Health Care Education/Training Program; Visit Provider Obstetrics & Gynecology | DX: O26.899 Other specified pregnancy related conditions, unspecified trimester (principal); N89.8 Other specified noninflammatory disorders of vagina; Z3A.00 Weeks of gestation of pregnancy not specified | CPT/HCPCS: 87070; 87205 ==

== ENCOUNTER → 2020-05-08 16:52 | Outpatient (CLI) | payer MEDICAID, SELFPAY ==
[2020-05-08 11:10] VITALS: BMI 31.4
[2020-05-08 17:17] LABS: Absolute Lymphocyte Count 2.01 X10^3/uL (0.83-4.51); Absolute Neutrophil Count 6.6 X10^3/uL (2.0-7.7); Basophil# 0.02 X10^3/uL; Basophil% 0.2 % (0-1); Eosinophils% 2.1 % (0-5); Hematocrit 37.5 % (37-47); Hemoglobin 12.4 g/dL (12.0-15.0); Lymphocyte # 2.01 X10^3/ul (4.0); Lymphocyte % 20.9 % (19-41); Mean Corp Hgb Conc 33.1 g/dL (32-36); Mean Corpuscular Hgb 29.2 pg (27.0-32.0); Mean Corpuscular Volume 88.4 fL (81-99); Mean Platelet Vol. 9.8 fl (6.2-12.0); Monocyte# 0.74 X10^3/uL; Monocyte% 7.7 % (0-10); NRBC Flagged by Analyzer 0 % (0-5); Neutrophil # 6.59 X10^3/uL (2.7-7.7); Neutrophil % 68.6 % (47-70); Platelet Count 202 K/mm3 (150-450); RBC Distribution Width CV 13.4 % (11.6-14.6); RBC Distribution Width SD 43.3 fl (35.1-43.9); Red Blood Count 4.24 M/mm3 (4.2-5.4); White Blood Count 9.6 K/mm3 (4.4-11.0)
[2020-05-08 17:57] LABS: NATERA MAILED SPECIMEN
[2020-05-13 15:15] LABS: HIV - WCH Non-Reactive (Nonreactive); Hepatitis B Surface Antigen Non-Reactive (Nonreactive); Hepatitis C Antibody Non-Reactive (Nonreactive); Rubella IgG Reactive (Nonreactive)
[2020-05-14 03:03] LABS: Rapid Plasmin Reagin (RPR) NONREACTIVE (NONREACTIVE)
== END ==
PROVIDERS: PCP Student in an Organized Health Care Education/Training Program; Referring Provider Obstetrics & Gynecology; Visit Provider Obstetrics & Gynecology
DX: O09.90 Supervision of high risk pregnancy, unspecified, unspecified trimester (principal); Z3A.00 Weeks of gestation of pregnancy not specified; Z31.430 Encounter of female for testing for genetic disease carrier status for procreative management
CPT/HCPCS: 36415; 85025; 86592; 86703; 86762; 86803; 86850; 86900; 86901; 87340

== ENCOUNTER 2020-07-25 21:40 | Outpatient (CLI) | payer MEDICAID, SELFPAY ==
[2020-07-23 11:18] VITALS: BMI 34.3
[2020-07-25 22:02] VITALS: BP 112/65; TEMP 36.4
[2020-07-25 22:03] VITALS: PULSE 100; O2SAT 98; BMI 34.1
[2020-07-25 22:46] LABS: Bacteria 0 SEEN /hpf (None Seen); Mucous, Urine 0 SEEN /hpf (<or=2+)
[2020-07-25 22:50] LABS: Color, Urine Yellow (Yellow); Glucose, Dipstick Normal (Normal); Ketone-Dipstick Negative (Negative); Leukocyte Esterase-Dipstick Negative /ul (Negative); Nitrite-Dipstick Negative (Negative); Occult Blood-Urine 10 /ul (Negative); Protein-Dipstick 15 mg/dl (Negative); Specific Gravity, Urine 1.025 (1.002-1.030); Urine Bilirubin Dipstick Negative (Negative); Urine Clarity Clear (Clear); Urine Urobilinogen Normal (Normal)
[2020-07-25 22:57] LABS: Red Blood Cells-Urine 0-5 SEEN /hpf (0-5); Squamous Epithelial Cells - UA 0-5 SEEN /hpf (5-10); White Blood Cells 0-5 SEEN /hpf (0-5)
[2020-07-25 23:10] LABS: ROM Internal Control Test YES-OK TO RESULT pt. (Internal QC); ROM Patient Test Negative (Negative)
--- NOTE | 2020-07-29 09:40 | OB.TRI.PN_ITS ---
Progress Notes Date of Service: 07/25/20 Progress Note: Patient presents for triage evaluation secondary to cramping and pressure. UA negative. Cramping resolved after PO hydration FHT: Moderate variability reactive no decelerations category I tracing [place]: No Contractions Assessment and plan: Reactive NST, reassuring maternal and status patient discharged to home to follow-up at next scheduled visit. See problem list details for additional plan information. Laboratory Studies: Laboratory Tests 07/25/20 07/25/20 Range/Units 22:14 21:45 Urine Color Yellow (Yellow) Urine Clarity Clear (Clear) Urine pH 6.0 (5.0 - 8.0) Ur Specific [place] 1.025 (1.002-1.030) Urine Protein 15 H (Negative) mg/dl Urine Glucose (UA) Normal (Normal) mg/dl Urine Ketones Negative (Negative) mg/dl Urine Occult Blood 10 H (Negative) /ul Urine Nitrite Negative (Negative) Urine Bilirubin Negative (Negative) mg/dL Urine Urobilinogen Normal (Normal) mg/dl Ur Leukocyte Esterase Negative (Negative) /ul Urine RBC 0-5 SEEN (0-5) /hpf Urine WBC 0-5 SEEN (0-5) /hpf Ur Squamous Epith Cells 0-5 SEEN (5-10) /hpf Urine Bacteria 0 SEEN (None Seen) /hpf Urine Mucus 0 SEEN (<or=2+) /hpf Vag Amniotic Fld Detect Negative (Negative) Multi Select Codes - Urinary/Genital Urinary/Genital CPT Codes: 85234-74 non-stress test Interp
== END 2020-07-25 23:45 | disposition home or self-care (01) ==
LOC: WPOUT 22:02 → WP 22:03
PROVIDERS: PCP Student in an Organized Health Care Education/Training Program; Visit Provider Obstetrics & Gynecology
DX: O26.899 Other specified pregnancy related conditions, unspecified trimester (principal); R10.9 Unspecified abdominal pain; Z3A.00 Weeks of gestation of pregnancy not specified
CPT/HCPCS: 59050; 81001; 84112; 99218; G0378

== ENCOUNTER 2020-07-28 23:20 | Outpatient (CLI) | payer MEDICAID, SELFPAY ==
[2020-07-28 22:26] VITALS: BP 131/75; PULSE 84; RESP 18; TEMP 36.4; O2SAT 100; BMI 34.3
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
--- NOTE | 2020-07-28 22:50 | RAD_ITS ---
STUDY: X-RAY - CERVICAL SPINE REASON FOR EXAM: Female, 30 years old. Injury/Pain TECHNIQUE: 3 view(s) of the cervical spine were obtained. COMPARISON: CT cervical spine 12/28/2019. FINDINGS: Normal anterior atlantoaxial articulation. Normal odontoid process. There is straightening of the normal cervical lordosis. Normal vertebral bodies and endplates. Normal disc space heights. Normal visualized intervertebral neuroforamina. The soft tissue structures are unremarkable. RAD/Cerv Spine 2 or 3 Views IMPRESSION: Normal x-ray examination of the visualized cervical spine. Electronically Signed: Sally Dave MD at 23:00 EDT Tel , Service support ,
[2020-07-28] MEDS: Acetaminophen 325 MG Tablet 650 MG PO (23:02)
[2020-07-28 23:28] VITALS: PULSE 94; O2SAT 98
[2020-07-28 23:32] VITALS: BP 90/52; PULSE 91; TEMP 36.4; O2SAT 98
[2020-07-28 23:44] VITALS: BMI 34.4
[2020-07-29 00:15] LABS: ROM Internal Control Test YES-OK TO RESULT pt. (Internal QC); ROM Patient Test Negative (Negative)
[2020-07-29 00:25] VITALS: BP 100/56; PULSE 71
--- NOTE | 2020-08-03 03:40 | OB.TRI.PN ---
Progress Notes Date of Service: 07/28/20 Progress Note: Patient presents for triage evaluation secondary to s/p fall FHT: 140 Moderate variability reactive no decelerations category I tracing [place]: no regular Contractions Assessment and plan: s/p fall no abdominal trauma, Reactive NST, reassuring maternal and status patient discharged to home to follow-up as scheduled. See problem list details for additional plan information. Laboratory Studies: Laboratory Tests 07/28/20 Range/Units 23:48 Vag Amniotic Fld Detect Negative (Negative) Multi Select Codes - Urinary/Genital Urinary/Genital CPT Codes: 68617-27 non-stress test Interp
== END 2020-07-29 00:25 | disposition home or self-care (01) ==
LOC: WP 23:22 → WPOUT 23:33 → WP 23:36
PROVIDERS: PCP Student in an Organized Health Care Education/Training Program; Referring Provider Obstetrics & Gynecology; Visit Provider Obstetrics & Gynecology
DX: O9A.212 Injury, poisoning and certain other consequences of external causes complicating pregnancy, second trimester (principal); S16.1XXA Strain of muscle, fascia and tendon at neck level, initial encounter; T14.8XXA Other injury of unspecified body region, initial encounter; R10.9 Unspecified abdominal pain; Z3A.20 20 weeks gestation of pregnancy; W10.9XXA Fall (on) (from) unspecified stairs and steps, initial encounter; Y93.9 Activity, unspecified; Y92.9 Unspecified place or not applicable
CPT/HCPCS: 59025; 59050; 72040; 84112; 99218; 99284; G0378

== ENCOUNTER → 2020-08-13 10:58 | Outpatient (CLI) | payer MEDICAID, SELFPAY ==
[2020-07-28 23:44] VITALS: BMI 34.4
[2020-08-13 11:38] LABS: Glucose Challenge Gest 1H 50g 153 mg/dL (70-140)
[2020-08-13 11:41] LABS: Absolute Lymphocyte Count 2.24 X10^3/uL (0.83-4.51); Absolute Neutrophil Count 7.7 X10^3/uL (2.0-7.7); Basophil# 0.03 X10^3/uL; Basophil% 0.3 % (0-1); Eosinophil# 0.17 X10^3/uL; Eosinophils% 1.6 % (0-5); Hematocrit 34.8 % (37-47); Hemoglobin 11.1 g/dL (12.0-15.0); Lymphocyte # 2.24 X10^3/ul (0.83-4.51); Lymphocyte % 20.5 % (19-41); Mean Corp Hgb Conc 31.9 g/dL (32-36); Mean Corpuscular Hgb 28.9 pg (27.0-32.0); Mean Corpuscular Volume 90.6 fL (81-99); Mean Platelet Vol. 10.1 fl (6.2-12.0); Monocyte# 0.73 X10^3/uL; Monocyte% 6.7 % (0-10); NRBC Flagged by Analyzer 0 % (0-5); Neutrophil # 7.68 X10^3/uL (2.7-7.7); Neutrophil % 70.2 % (47-70); Platelet Count 159 K/mm3 (150-450); RBC Distribution Width CV 14.5 % (11.6-14.6); RBC Distribution Width SD 47.3 fl (35.1-43.9); Red Blood Count 3.84 M/mm3 (4.2-5.4); White Blood Count 10.9 K/mm3 (4.4-11.0)
== END ==
PROVIDERS: Nurse Practitioner Women's Health; PCP Student in an Organized Health Care Education/Training Program; Referring Provider Obstetrics & Gynecology; Visit Provider Obstetrics & Gynecology
DX: O09.90 Supervision of high risk pregnancy, unspecified, unspecified trimester (principal); Z3A.00 Weeks of gestation of pregnancy not specified; Z13.1 Encounter for screening for diabetes mellitus
CPT/HCPCS: 36415; 82950; 85025

== ENCOUNTER → 2020-08-17 09:53 | Outpatient (CLI) | payer MEDICAID, SELFPAY ==
[2020-08-13 11:11] VITALS: BMI 34.4
[2020-08-17 10:57] LABS: Glucose GTT-Gestation. Fasting 78 mg/dL (<105)
[2020-08-17 11:45] LABS: Glucose GTT-Gestational 1 Hr 165 mg/dL (<190)
[2020-08-17 14:20] LABS: Glucose GTT-Gestational 2 Hr 129 mg/dL (<165)
[2020-08-17 14:48] LABS: Glucose GTT-Gestational 3 Hr 72 L (<145)
== END ==
PROVIDERS: PCP Student in an Organized Health Care Education/Training Program; Referring Provider Nurse Practitioner Women's Health; Visit Provider Nurse Practitioner Women's Health
DX: O99.810 Abnormal glucose complicating pregnancy (principal); Z3A.00 Weeks of gestation of pregnancy not specified; Z13.1 Encounter for screening for diabetes mellitus
CPT/HCPCS: 36415; 82951; 82952

== ENCOUNTER 2020-09-07 15:35 | Outpatient (CLI) | payer MEDICAID, SELFPAY ==
[2020-09-01 08:14] VITALS: BMI 34.4
[2020-09-07 15:46] VITALS: BMI 35.6
[2020-09-07] MEDS: Lactated Ringers 1,000 ML 999 ML IV ×2 (16:00→16:45)
[2020-09-07] MEDS: Ondansetron 4 MG/2 ML Vial IV ×2 (16:24→18:35)
[2020-09-07 16:46] VITALS: TEMP 36.2
[2020-09-07 16:47] VITALS: BP 96/52; PULSE 99
[2020-09-07 17:19] LABS: Mucous, Urine 0 SEEN /hpf (<or=2+); Red Blood Cells-Urine 0 SEEN /hpf (0-5); White Blood Cells 0 SEEN /hpf (0-5)
[2020-09-07 17:20] LABS: Color, Urine Yellow (Yellow); Glucose, Dipstick Normal (Normal); Ketone-Dipstick Negative (Negative); Leukocyte Esterase-Dipstick Negative /ul (Negative); Nitrite-Dipstick Negative (Negative); Occult Blood-Urine Negative /ul (Negative); Protein-Dipstick 15 mg/dl (Negative); Urine Bilirubin Dipstick Negative (Negative); Urine Clarity Clear (Clear); Urine Urobilinogen Normal (Normal)
[2020-09-07 17:31] LABS: Absolute Lymphocyte Count 1.29 X10^3/uL (0.83-4.51); Absolute Neutrophil Count 9.8 X10^3/uL (2.0-7.7); Basophil# 0.03 X10^3/uL; Basophil% 0.2 % (0-1); Eosinophil# 0.05 X10^3/uL; Eosinophils% 0.4 % (0-5); Hematocrit 36.1 % (37-47); Hemoglobin 11.9 g/dL (12.0-15.0); Lymphocyte # 1.29 X10^3/ul (0.83-4.51); Lymphocyte % 10.6 % (19-41); Mean Corpuscular Hgb 28.5 pg (27.0-32.0); Mean Corpuscular Volume 86.6 fL (81-99); Mean Platelet Vol. 10.1 fl (6.2-12.0); Monocyte% 7.4 % (0-10); NRBC Flagged by Analyzer 0 % (0-5); Neutrophil # 9.83 X10^3/uL (2.7-7.7); Neutrophil % 80.7 % (47-70); Platelet Count 167 K/mm3 (150-450); RBC Distribution Width CV 14.5 % (11.6-14.6); RBC Distribution Width SD 45.2 fl (35.1-43.9); Red Blood Count 4.17 M/mm3 (4.2-5.4); White Blood Count 12.2 K/mm3 (4.4-11.0)
[2020-09-07 17:31] LABS: Bacteria RARE /hpf (None Seen); Squamous Epithelial Cells - UA 0-5 SEEN /hpf (5-10)
[2020-09-07 17:44] LABS: ALB/GLOB Ratio 0.7 RATIO (0.9-2.4); AST(SGOT) 20 U/L (15-37); Alanine Aminotransfer ALT/SGPT 17 U/L (13-56); Albumin, Serum 2.8 g/dL (3.2-5.0); Alkaline Phosphatase 94 U/L (45-117); Anion Gap 9 (5-15); BUN 14 mg/dL (7-18); BUN/Creat Ratio 20.6 RATIO (10-20); Chloride 107 mmol/L (98-107); Creatinine, Serum 0.68 mg/dL (0.55-1.02); EST Glomerular Filtration Rate 110 mL/min (>60); Est Glom Filt Rate - Afr Amer 133 mL/min (>60); Estimated Creatinine Clearance 106.36 ml/min; Globulin 4.1 g/dL (2.2-4.2); Glucose 96 mg/dL (74-106); Potassium 3.7 mmol/L (3.5-5.1); Protein, Total 6.9 g/dL (6.4-8.2); Sodium Level 138 mmol/L (136-145)
[2020-09-07] MEDS: Lactated Ringers 1,000 ML 250 ML IV (18:35)
[2020-09-07 19:25] VITALS: BP 112/65; PULSE 93; TEMP 36.7
[2020-09-07 19:26] VITALS: BP 112/65; PULSE 93
--- NOTE | 2020-09-08 09:59 | OB.TRI.PN ---
Progress Notes Date of Service: 09/07/20 Progress Note: Patient presents for triage evaluation secondary to nausea, vomiting, diarrhea. Patient given 3 L of IV fluid as well as Zofran and Reglan. Patient was able to tolerate fluids and Jell-O without vomiting. FHT: Moderate variability reactive no decelerations category I tracing [place]: q3-5 on arrival but stopped after IV fluids Assessment and plan: Reactive NST, reassuring maternal and status patient discharged to home to follow-up at next scheduled visit. See problem list details for additional plan information. Laboratory Studies: Laboratory Tests 09/07/20 09/07/20 09/07/20 Range/Units 17:00 15:50 15:50 WBC 12.2 H (4.4-11.0) K/mm3 RBC 4.17 L (4.2-5.4) M/mm3 Hgb 11.9 L (12.0-15.0) g/dL Hct 36.1 L (37-47) % MCV 86.6 (81-99) fL MCH 28.5 (27.0-32.0) pg MCHC 33.0 (32-36) g/dL RDW Std Deviation 45.2 H (35.1-43.9) fl RDW Coeff of Justin 14.5 (11.6-14.6) % Plt Count 167 (150-450) K/mm3 MPV 10.1 (6.2-12.0) fl Immature Gran % (Auto) 0.700 (0.0-0.9) % Neut % (Auto) 80.7 H (47-70) % Lymph % (Auto) 10.6 L (19-41) % [place] % (Auto) 7.4 (0-10) % Eos % (Auto) 0.4 (0-5) % Baso % (Auto) 0.2 (0-1) % Absolute Neuts (auto) 9.8 H (2.0-7.7) X10^3/uL Absolute Lymphs (auto) 1.29 (0.83-4.51) X10^3/uL Nucleated RBC % 0 (0-5) % Sodium 138 (136-145) mmol/L Potassium 3.7 (3.5-5.1) mmol/L Chloride 107 (98-107) mmol/L Carbon Dioxide 22.0 (21.0-32.0) mmol/L Anion Gap 9 (5-15) BUN 14 (7-18) mg/dL Creatinine 0.68 (0.55-1.02) mg/dL Estim Creat Clear Calc 106.36 ml/min Est GFR (MDRD) Af Amer 133 (>60) mL/min Est GFR (MDRD) Non-Af 110 (>60) mL/min BUN/Creatinine Ratio 20.6 H (10-20) RATIO Glucose 96 (74-106) mg/dL Calcium 8.0 L (8.5-10.1) mg/dL Total Bilirubin 0.40 (0.20-1.00) mg/dL AST 20 (15-37) U/L ALT 17 (13-56) U/L Alkaline Phosphatase 94 (45-117) U/L Total Protein 6.9 (6.4-8.2) g/dL Albumin 2.8 L (3.2-5.0) g/dL Globulin 4.1 (2.2-4.2) g/dL Albumin/Globulin Ratio 0.7 L (0.9-2.4) RATIO Urine Color Yellow (Yellow) Urine Clarity Clear (Clear) Urine pH 7.0 (5.0 - 8.0) Ur Specific [place] 1.010 (1.002-1.030) Urine Protein 15 H (Negative) mg/dl Urine Glucose (UA) Normal (Normal) mg/dl Urine Ketones Negative (Negative) mg/dl Urine Occult Blood Negative (Negative) /ul Urine Nitrite Negative (Negative) Urine Bilirubin Negative (Negative) mg/dL Urine Urobilinogen Normal (Normal) mg/dl Ur Leukocyte Esterase Negative (Negative) /ul Urine RBC 0 SEEN (0-5) /hpf Urine WBC 0 SEEN (0-5) /hpf Ur Squamous Epith Cells 0-5 SEEN (5-10) /hpf Urine Bacteria RARE (None Seen) /hpf Urine Mucus 0 SEEN (<or=2+) /hpf Procedures Urinary/Genital 52xxx-59xxx: 84649-77 non-stress test Interp
== END 2020-09-07 21:45 | disposition home or self-care (01) ==
LOC: WPOUT 15:40 → WP 15:41
PROVIDERS: PCP Student in an Organized Health Care Education/Training Program; Visit Provider Obstetrics & Gynecology
DX: O21.9 Vomiting of pregnancy, unspecified (principal); O26.899 Other specified pregnancy related conditions, unspecified trimester; R19.7 Diarrhea, unspecified; Z3A.00 Weeks of gestation of pregnancy not specified
CPT/HCPCS: 96361 ×5; 96374; 96376; 36415; 59025; 59050; 80053; 81001; 85025; 87426; 99218; J7120; G0378; J2405

== ENCOUNTER 2020-09-24 15:35 | Outpatient (CLI) | payer MEDICAID, SELFPAY ==
[2020-09-09 14:04] VITALS: BMI 35.6
[2020-09-24 15:48] VITALS: BP 103/68; PULSE 99
[2020-09-24 15:53] VITALS: BMI 36.6
--- NOTE | 2020-11-06 07:14 | OB.TRI.PN ---
Progress Notes Progress Note: seen for rule out labor- no cervical change, reassurig FHT. dc home labor precautions
== END 2020-09-24 16:39 | disposition home or self-care (01) ==
LOC: WPOUT 15:39 → WP 15:40
PROVIDERS: PCP Student in an Organized Health Care Education/Training Program; Referring Provider Obstetrics & Gynecology; Visit Provider Obstetrics & Gynecology
DX: O26.90 Pregnancy related conditions, unspecified, unspecified trimester (principal); Z3A.00 Weeks of gestation of pregnancy not specified
CPT/HCPCS: 59025; 59050; 99218; G0378

== ENCOUNTER → 2020-10-09 | Outpatient (CLI) | payer MEDICAID, SELFPAY ==
[2020-10-09 11:42] VITALS: BMI 36.6
== END | disposition home or self-care (01) ==
LOC: LABSPEC 13:04
PROVIDERS: PCP Student in an Organized Health Care Education/Training Program; Referring Provider Obstetrics & Gynecology; Visit Provider Obstetrics & Gynecology
DX: O09.72 Supervision of high risk pregnancy due to social problems, second trimester (principal); Z3A.00 Weeks of gestation of pregnancy not specified
CPT/HCPCS: 87081

== ENCOUNTER 2020-10-13 10:15 | Outpatient (CLI) | payer MEDICAID, SELFPAY ==
[2020-10-09 11:42] VITALS: BMI 36.6
[2020-10-13 10:28] VITALS: BMI 37.3
[2020-10-13 10:43] VITALS: BP 109/62; PULSE 112
[2020-10-13 10:44] VITALS: TEMP 36.7
[2020-10-13 11:04] LABS: ROM Internal Control Test YES-OK TO RESULT pt. (Internal QC); ROM Patient Test Negative (Negative)
--- NOTE | 2020-10-13 12:57 | OB.TRI.PN_ITS ---
Progress Notes Date of Service: 10/13/20 Progress Note: Patient presents for triage evaluation secondary to ctx and possible LOF FHT: 140 Moderate variability reactive no decelerations category I tracing [place]: no regular Contractions Assessment and plan: false labor intact membranes Reactive NST, reassuring mate rnal and status patient discharged to home to follow-up as scheduled. See problem list details for additional plan information. Laboratory Studies: Laboratory Tests 10/13/20 Range/Units 10:35 Vag Amniotic Fld Detect Negative (Negative) Charges/Coding Procedures Urinary/Genital 52xxx-59xxx: 87902-41 non-stress test Interp Assessment & Plan (1) False labor:
== END 2020-10-13 11:15 | disposition home or self-care (01) ==
LOC: WPOUT 10:23 → WP 10:24
PROVIDERS: PCP Student in an Organized Health Care Education/Training Program; Referring Provider Obstetrics & Gynecology; Visit Provider Obstetrics & Gynecology
DX: O47.9 False labor, unspecified (principal)
CPT/HCPCS: 59025; 59050; 84112; 99218; G0378

== ENCOUNTER 2020-10-20 12:00 | Outpatient (CLI) | payer MEDICAID, SELFPAY ==
[2020-10-15 09:00] VITALS: BMI 37.5
[2020-10-20 12:18] VITALS: BP 116/65; PULSE 113
[2020-10-20 12:19] VITALS: BP 116/65; PULSE 107; TEMP 36.6; O2SAT 98
[2020-10-20 12:26] VITALS: BMI 38.4
[2020-10-20 13:13] LABS: ROM Internal Control Test YES-OK TO RESULT pt. (Internal QC); ROM Patient Test Negative (Negative)
--- NOTE | 2020-10-24 09:19 | OB.TRI.PN ---
Progress Notes Date of Service: 10/20/20 Progress Note: Patient presents for triage evaluation secondary to possible rupture membranes threatened labor FHT: 130 Moderate variability reactive no decelerations category I tracing [employer]: Q. 8 to 10-minute contractions Assessment and plan: Amniotic membranes intact false labor no cervical change negative ROM plus reactive NST, reassuring maternal and status patient discharged to home to follow-up as scheduled. See problem list details for additional plan information. Laboratory Studies: Laboratory Tests 10/20/20 Range/Units 12:40 Vag Amniotic Fld Detect Negative (Negative) Charges/Coding Procedures Urinary/Genital 52xxx-59xxx: 66380-98 non-stress test Interp
== END 2020-10-20 14:10 | disposition home or self-care (01) ==
LOC: WPOUT 12:04 → WP 12:04
PROVIDERS: PCP Student in an Organized Health Care Education/Training Program; Referring Provider Obstetrics & Gynecology; Visit Provider Obstetrics & Gynecology
DX: O47.9 False labor, unspecified (principal); Z3A.00 Weeks of gestation of pregnancy not specified
CPT/HCPCS: 59025; 59050; 84112; 99218; G0378

== ENCOUNTER 2020-10-22 05:10 | Outpatient (CLI) | payer MEDICAID, SELFPAY ==
[2020-10-22 05:39] VITALS: BMI 38.5
[2020-10-22 05:43] VITALS: TEMP 36.5
[2020-10-22 05:44] VITALS: BP 114/72; PULSE 107; O2SAT 98
[2020-10-22 06:19] LABS: ROM Internal Control Test YES-OK TO RESULT pt. (Internal QC); ROM Patient Test Negative (Negative)
--- NOTE | 2020-10-23 13:28 | OB.TRI.PN_ITS ---
Progress Notes Date of Service: 10/22/20 Progress Note: Patient presents for triage evaluation secondary to leakage of fluid. Negative ROM. Cervix 1cm. FHT: Moderate variability reactive no decelerations category I tracing [place]: Irregular Contractions Assessment and plan: Reactive NST, reassuring maternal and status patient discharged to home to follow-up next scheduled visit. See problem list details for additional plan information. Laboratory Studies: Laboratory Tests 10/22/20 Range/Units 05:50 Vag Amniotic Fld Detect Negative (Negative) Charges/Coding Procedures Urinary/Genital 52xxx-59xxx: 72779-42 non-stress test Interp
== END 2020-10-22 06:42 | disposition home or self-care (01) ==
LOC: WPOUT 05:13 → WP 05:13
PROVIDERS: PCP Student in an Organized Health Care Education/Training Program; Visit Provider Obstetrics & Gynecology
DX: O42.90 Premature rupture of membranes, unspecified as to length of time between rupture and onset of labor, unspecified weeks of gestation (principal); O62.9 Abnormality of forces of labor, unspecified; Z3A.00 Weeks of gestation of pregnancy not specified
CPT/HCPCS: 59025; 59050; 76815; 84112; 99218; G0378

== ENCOUNTER → 2020-10-22 13:56 | Outpatient (CLI) | payer MEDICAID, SELFPAY ==
[2020-10-22 08:39] VITALS: BMI 38.5
--- NOTE | 2020-10-22 13:57 | US_ITS ---
STUDY: SECOND AND THIRD TRIMESTER OBSTETRICAL ULTRASOUND REASON FOR EXAM: Female, 30 years old CHANTE TECHNIQUE: Transabdominal PRIOR ULTRASOUND: None. FINDINGS: There is a single intrauterine fetus. The fetus is in a cephalic presentation. There is demonstrated cardiac activity with a heart rate of 123 bpm. There is a normal amniotic fluid volume. The largest amniotic fluid pocket measures 5.3 cm. The amniotic fluid index (CHANTE) is 8.7 cm. The placenta is anterior and not low-lying There are Grade 2 placental changes. The cervix is not visualized. The adnexal regions are not visualized. US/OB Limited (No Biometrics) IMPRESSION: Normal CHANTE of 8.7 cm. Electronically Signed: Levar Lucero MD at 21:00 EDT Tel , Service support ,
== END ==
PROVIDERS: PCP Student in an Organized Health Care Education/Training Program; Referring Provider Obstetrics & Gynecology; Visit Provider Obstetrics & Gynecology
DX: Z34.93 Encounter for supervision of normal pregnancy, unspecified, third trimester (principal)
CPT/HCPCS: 76815

== ENCOUNTER 2020-10-24 16:00 | Outpatient (CLI) | payer MEDICAID, SELFPAY ==
[2020-10-22 08:39] VITALS: BMI 38.5
[2020-10-24 16:18] VITALS: BP 112/72; PULSE 99; TEMP 36.2
[2020-10-24 16:30] VITALS: BMI 38.0
--- NOTE | 2020-11-02 13:02 | OB.TRI.PN ---
Progress Notes Date of Service: 10/24/20 Progress Note: seen for possible ROM and labor, no cervicla change and not in labor dc home labor precautions
== END 2020-10-24 18:03 | disposition home or self-care (01) ==
LOC: WPOUT 16:12 → WP 16:12
PROVIDERS: PCP Student in an Organized Health Care Education/Training Program; Visit Provider Obstetrics & Gynecology
DX: O47.9 False labor, unspecified (principal); Z3A.00 Weeks of gestation of pregnancy not specified
CPT/HCPCS: 59025; 59050; 99218; G0378

== ENCOUNTER 2020-10-25 10:35 | Inpatient (IN) | payer MEDICAID, SELFPAY ==
[2020-10-24 16:30] VITALS: BMI 38.0
[2020-10-25] VITALS (67 sets, daily range): BP systolic 85–119; BP diastolic 50–81; PULSE 69–104; TEMP 36.2–37.2; O2SAT 89–100; BMI 38.5
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
[2020-10-25] MEDS: Lactated Ringers 1,000 ML 50 ML IV (11:00)
[2020-10-25 11:10] LABS: Absolute Neutrophil Count 8.1 X10^3/uL (2.0-7.7); Basophil# 0.03 X10^3/uL; Basophil% 0.3 % (0-1); Eosinophil# 0.11 X10^3/uL; Hematocrit 35.2 % (37-47); Hemoglobin 11.4 g/dL (12.0-15.0); Lymphocyte % 15.9 % (19-41); Mean Corp Hgb Conc 32.4 g/dL (32-36); Mean Corpuscular Hgb 27.7 pg (27.0-32.0); Mean Corpuscular Volume 85.6 fL (81-99); Monocyte# 0.71 X10^3/uL; Monocyte% 6.6 % (0-10); NRBC Flagged by Analyzer 0 % (0-5); Neutrophil # 8.07 X10^3/uL (2.7-7.7); Neutrophil % 75.5 % (47-70); Platelet Count 148 K/mm3 (150-450); RBC Distribution Width CV 17.1 % (11.6-14.6); RBC Distribution Width SD 52.7 fl (35.1-43.9); Red Blood Count 4.11 M/mm3 (4.2-5.4); White Blood Count 10.7 K/mm3 (4.4-11.0)
[2020-10-25] MEDS: Lactated Ringers 500 ML 999 ML IV ×2 (11:15→19:52)
[2020-10-25] MEDS: fentaNYL-bupivacaine (epidural) 100 ML BAG EPIDURAL ×2 (12:50→18:56)
[2020-10-25] MEDS: Oxytocin 30 units/NS 500 ml 30 UNITS/500 ML IV.SOLN IV (14:56)
[2020-10-25] MEDS: Lactated Ringers 1,000 ML 200 ML IV (15:57)
[2020-10-25] MEDS: Ondansetron 4 MG/2 ML Vial IV (19:57)
[2020-10-25] MEDS: 0.9% Saline Lock 10 ML Syringe IV (19:57)
--- NOTE | 2020-10-25 20:15 | NURSING ---
Pitocin running at 8ml at the start of this RN's shift on 10/25/20 at 1900 per prior shift RN.
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
--- NOTE | 2020-10-25 21:24 | PCM.DC ---
Discharge Instructions Diet Discharge Diet: No restrictions Activity Discharge Activity: Return to Normal Activity, May Not Drive (while taking narcotic pain medications.) and May Shower May resume sexual activity in: 4-6 weeks Dressing / Incision Call your doctor if your incision/area has: Continuous Slow Oozing, Sudden Increased Bleeding, Increased Pain/ Swelling, Increased Redness and Foul Smelling Discharge Follow Up Care Please Follow Up With: Amanda Goldberg MD When: Call [phone] to make an appointment with your doctor in 6 weeks. If you had elevated blood pressure or 4th degree laceration, you will need to be seen in 2 weeks. Test Results: Test results from this visit will be discussed in further detail at your follow-up appointment, if applicable. Discharge Plan Admission Admit Date/Time: 10/25/20 10:35 Primary Reason for Your Visit: vaginal delivery Attending Provider: Amanda Goldberg Primary Care Provider: Jose Roberto Carrera Discharge Orders/Prescriptions Prescriptions: New naproxen 250 MG tablet 250 - 500 mg PO Q8H PRN PRN (Reason: MILD PAIN) Qty: 30 RF: 1 Continued PNV-DHA 27 mg iron-1 mg -300 mg capsule 1 cap PO DAILY RF: 0 Referrals / Follow Up: Jose Roberto Carrera DO [Primary Care Provider] - Amanda Goldberg MD [STAFF PHYSICIAN] -
[2020-10-25] MEDS: Oxytocin 30 units/NS 500 ml 30 UNITS/500 ML IV.SOLN 334 UNITS IV (21:56)
[2020-10-25] MEDS: Naproxen 500 MG Tablet PO (22:11)
[2020-10-25] MEDS: Acetaminophen 500 MG Tablet 1000 MG PO (22:55)
[2020-10-26 03:43] VITALS: BP 109/61; PULSE 88; RESP 16
[2020-10-26] MEDS: Acetaminophen 500 MG Tablet 1000 MG PO ×2 (06:02→19:34)
[2020-10-26 09:25] VITALS: BP 117/69; PULSE 85; RESP 18; TEMP 36
[2020-10-26] MEDS: Prenatal Vits Tablet 1 TABLET PO (12:29)
[2020-10-26 12:54] VITALS: BP 112/65; PULSE 89; RESP 18; TEMP 36.1
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
[2020-10-26 16:45] VITALS: BP 112/73; PULSE 90; RESP 18; TEMP 36.1
--- NOTE | 2020-10-26 17:31 | PCM.PN.OB ---
Subjective Subjective Patient doing well without complaints. Tolerating PO. Ambulating and voiding without difficulty. feeding well. Denies chest pain, shortness of breath, calf pain/swelling, fevers, chills, lightheadedness. Objective Data Objective Data Vital Signs: Vital Signs Temp Pulse Resp BP Pulse Ox 97.0 F L 89 18 112/65 97 10/26/20 12:54 10/26/20 12:54 10/26/20 12:54 10/26/20 12:54 10/25/20 22:56 Oxygen Delivery Method Room Air Weight: 224 lb 6 oz Body Mass Index (BMI) 38.5 Intake & Output: Intake and Output for Last 24 Hours 10/24/20 10/25/20 10/26/20 23:59 23:59 23:59 Intake Total 4281.20 / 4281.20 Output Total 750 / 750 1700 / 1700 Balance 3531.20 / 3531.20 -1700 / -1700 Lab / Micro Data Result Diagrams: 10/25/20 11:00 Micro: Microbiology 10/25/20 11:10 Mucosa - Nose SARS-CoV-2 Antigen (Rapid) - Final ROS Constitutional Constitutional: Reports systems reviewed and no addt'l complaints, except as documented Cardiovascular Cardiovascular: Reports systems reviewed and no addt'l complaints, except as documented Respiratory/Chest Respiratory/Chest: Reports systems reviewed and no addt'l complaints, except as documented Gastrointestinal Gastrointestinal: Reports systems reviewed and no addt'l complaints, except as documented Physical Exam Const alert, oriented x3 and no apparent distress HEENT Head and Scalp: atraumatic Resp normal respiratory effort GI soft to palpation and non-tender Bimanual Exam - Vag & Uterus: uterus non-tender Uterus Palpation: uterus fundus firm (below Umbilicus) Assessment & Plan (1) Vaginal delivery: COMMENT: SM 39 IAL boy Phi PLAN: s/p PPD #1 1. routine post delivery care 2. breast feeding- support given 3. rh positive 4. rubella immune
[2020-10-26 19:35] VITALS: BP 108/66; PULSE 95; RESP 16; TEMP 36.6
[2020-10-27 02:00] VITALS: BP 106/49; PULSE 78; RESP 18; TEMP 36.5
[2020-10-27 07:50] VITALS: BP 90/56; PULSE 67; RESP 16; TEMP 36.1
--- NOTE | 2020-10-27 10:14 | PCM.PN.OB ---
Subjective Subjective Patient doing well without complaints. Tolerating PO. Ambulating and voiding without difficulty. feeding well. Denies chest pain, shortness of breath, calf pain/swelling, fevers, chills, lightheadedness. Objective Data Objective Data Vital Signs: Vital Signs Temp Pulse Resp BP Pulse Ox 97.0 F L 67 16 90/56 L 97 10/27/20 07:50 10/27/20 07:50 10/27/20 07:50 10/27/20 07:50 10/25/20 22:56 Oxygen Delivery Method Room Air Weight: 224 lb 6 oz Body Mass Index (BMI) 38.5 Intake & Output: Intake and Output for Last 24 Hours 10/25/20 10/26/20 10/27/20 23:59 23:59 23:59 Intake Total 4281.20 / 4281.20 Output Total 750 / 750 1700 / 1700 Balance 3531.20 / 3531.20 -1700 / -1700 Lab / Micro Data Result Diagrams: 10/25/20 11:00 Micro: Microbiology 10/25/20 11:10 Mucosa - Nose SARS-CoV-2 Antigen (Rapid) - Final ROS Constitutional Constitutional: Reports systems reviewed and no addt'l complaints, except as documented Cardiovascular Cardiovascular: Reports systems reviewed and no addt'l complaints, except as documented Respiratory/Chest Respiratory/Chest: Reports systems reviewed and no addt'l complaints, except as documented Gastrointestinal Gastrointestinal: Reports systems reviewed and no addt'l complaints, except as documented Physical Exam Const alert, oriented x3 and no apparent distress HEENT Head and Scalp: atraumatic Resp normal respiratory effort GI soft to palpation and non-tender Bimanual Exam - Vag & Uterus: uterus non-tender Uterus Palpation: uterus fundus firm (below Umbilicus) Assessment & Plan (1) Vaginal delivery: COMMENT: SM 39 IAL boy Phi PLAN: dc home fu at 6 weeks
[2020-10-27] MEDS: Prenatal Vits Tablet 1 TABLET PO (11:50)
--- NOTE | 2020-10-27 12:27 | CASEMGMT ---
SW Note SW followed up with and spoke to charge aide, Reginaldo. She stated it was her understanding that patient could go home with . GALINDO reviewed the chart and noted that could go home with patient at discharged. GALINDO followed up with Reginaldo and confirmed can be discharged home with patient. Plan: Home with Dominique ROBIN
--- NOTE | 2020-10-27 14:33 | CM.ED ---
GALINDO Note SW received call from RN stating that fob and patient would like to speak to healthcare social worker. SW advised that this specifications writer will be over to [facility] shortly. SW went to . RN said that after speaking to this specifications writer she went back into the room and patient said that her went to [facility] but she would call him to come back. Patient said that her had a question of who spoke to her yesterday and this specifications writer said Elvi. Patient said that her mother in law had questions regarding and if he will be on the same schedule as Belkis? (Belkis goes to mother in law, biological family and friend). SW advised that is going home at discharge. Patient asked if this specifications writer could speak to her Mother in Law regarding the question her MIL had regarding discharge. GALINDO gave patient the number for the ED healthcare social worker. Patient reported no additional issues or concerns. RN updated. Plan: Home Dominique ROBIN
[2020-10-27 15:21] VITALS: BP 109/70; RESP 16; TEMP 36.1
--- NOTE | 2020-10-30 10:55 | CASEMGMT ---
Baby discharged home yesterday, 10/29/20. GALINDO Goldberg and GALINDO Galicia called [facility] on 10/29/20 to notify them that baby was discharged home with MOB and FOB. REBECCA Martino
== END 2020-10-27 15:27 | disposition home or self-care (01) | DRG 560 ==
LOC: WPOUT 10:36 → WP 10:36
PROVIDERS: Admitting Provider Obstetrics & Gynecology; PCP Student in an Organized Health Care Education/Training Program; Visit Provider Obstetrics & Gynecology
DX: O69.1XX0 Labor and delivery complicated by cord around neck, with compression, not applicable or unspecified (principal); Z37.0 Single live birth; O99.810 Abnormal glucose complicating pregnancy; O77.0 Labor and delivery complicated by meconium in amniotic fluid; O70.1 Second degree perineal laceration during delivery; O42.90 Premature rupture of membranes, unspecified as to length of time between rupture and onset of labor, unspecified weeks of gestation; O62.9 Abnormality of forces of labor, unspecified; Z3A.39 39 weeks gestation of pregnancy; Z86.16 Personal history of COVID-19
CPT/HCPCS: 59025; 59050; 76815; 84112; 85025; 86850; 86900; 86901; 87426; 99218; J7120; A4216; G0378; J2405

== ENCOUNTER → 2020-11-30 | Outpatient (CLI) | payer MEDICAID, SELFPAY | END | disposition home or self-care (01) | LOC: LABSPEC 12:26 | PROVIDERS: PCP Student in an Organized Health Care Education/Training Program; Referring Provider Nurse Practitioner Women's Health; Visit Provider Nurse Practitioner Women's Health | DX: R30.9 Painful micturition, unspecified (principal) | CPT/HCPCS: 87086; 87088; 87186 ==

== ENCOUNTER → 2021-03-11 | Outpatient (CLI) | payer MEDICAID, SELFPAY | END | disposition home or self-care (01) | LOC: LABSPEC 16:31 | PROVIDERS: PCP Student in an Organized Health Care Education/Training Program; Visit Provider Nurse Practitioner Women's Health | DX: R30.9 Painful micturition, unspecified (principal) | CPT/HCPCS: 87086; 87088 ==

== ENCOUNTER → 2021-03-19 08:15 | Outpatient (CLI) | payer MEDICAID, SELFPAY ==
--- NOTE | 2021-03-19 08:18 | US_ITS ---
STUDY: ULTRASOUND OF THE FEMALE PELVIS - COMPLETE REASON FOR EXAM: Female, 30 years old. Pain LMP: No menses since vaginal delivery in October. TECHNIQUE: Transabdominal and Transvaginal TECHNICAL QUALITY: Adequate. COMPARISON: Comparison is made with prior study dated 10/16/2019. FINDINGS: The uterus is anteverted and is in a midline position. The uterus measures 6.8 cm x 4.9 cm x 3.4 cm. Normal uterine cervix. The endometrium measures 8 mm in thickness, and is hyperechoic. There is no demonstrated endometrial mass. There is no demonstrated myometrial mass. I.U.D. - The patient does not have an I.U.D. The right ovary is visualized. The right ovary measures 2.5 cm x 1.5 cm x 2.4 cm. There is no right ovarian cyst or ovarian mass. There is no visualized right adnexal mass or complex lesion. There is normal arterial and normal venous vascularity. The left ovary is visualized. The left ovary measures 2.8 cm x 1.6 cm x 1.8 cm. There is no left ovarian cyst or ovarian mass. There is no visualized left adnexal mass or complex lesion. There is normal arterial and normal venous vascularity. There is no fluid in the cul-de-sac. The pre void volume of the bladder was 58 ml. US/Transvaginal Non- IMPRESSION: Normal female pelvis. Electronically Signed: Kvng Chan MD at 12:36 EST , Service support ,
--- NOTE | 2021-03-19 08:18 | US_ITS ---
STUDY: ULTRASOUND OF THE FEMALE PELVIS - COMPLETE REASON FOR EXAM: Female, 30 years old. Pain LMP: No menses since vaginal delivery in October. TECHNIQUE: Transabdominal and Transvaginal TECHNICAL QUALITY: Adequate. COMPARISON: Comparison is made with prior study dated 10/16/2019. FINDINGS: The uterus is anteverted and is in a midline position. The uterus measures 6.8 cm x 4.9 cm x 3.4 cm. Normal uterine cervix. The endometrium measures 8 mm in thickness, and is hyperechoic. There is no demonstrated endometrial mass. There is no demonstrated myometrial mass. I.U.D. - The patient does not have an I.U.D. The right ovary is visualized. The right ovary measures 2.5 cm x 1.5 cm x 2.4 cm. There is no right ovarian cyst or ovarian mass. There is no visualized right adnexal mass or complex lesion. There is normal arterial and normal venous vascularity. The left ovary is visualized. The left ovary measures 2.8 cm x 1.6 cm x 1.8 cm. There is no left ovarian cyst or ovarian mass. There is no visualized left adnexal mass or complex lesion. There is normal arterial and normal venous vascularity. There is no fluid in the cul-de-sac. The pre void volume of the bladder was 58 ml. US/Pelvic (Non ) IMPRESSION: Normal female pelvis. Electronically Signed: Kvng Chan MD at 12:36 EST , Service support ,
== END ==
PROVIDERS: PCP Student in an Organized Health Care Education/Training Program; Referring Provider Nurse Practitioner Women's Health; Visit Provider Nurse Practitioner Women's Health
DX: R10.2 Pelvic and perineal pain (principal)
CPT/HCPCS: 76830; 76856; 93976

== ENCOUNTER 2021-03-28 04:19 | Emergency (ER) | payer MEDICAID, SELFPAY ==
[2021-03-28 04:20] VITALS: BP 126/86; PULSE 77; RESP 18; TEMP 36.3; O2SAT 100; BMI 30.7
--- NOTE | 2021-03-28 04:55 | EKG12_ITS ---
Test Reason : Blood Pressure : / mmHG Vent. Rate : 059 BPM Atrial Rate : 059 BPM P-R Int : 146 ms QRS Dur : 088 ms QT Int : 430 ms P-R-T Axes : 029 059 036 degrees QTc Int : 425 ms Sinus bradycardia with sinus arrhythmia Otherwise normal ECG Confirmed by MARGO VORA, TRANG ([id number]), editor sound KITA MOHR ([id number]) on 03/29/2021 9:41:49 AM Referred By: BRAD Confirmed By:TRANG ARAGON MD
--- NOTE | 2021-03-28 04:56 | EDS_ITS ---
HPI History of Present Illness Chief Complaint: Chest Other Informant: patient Narrative Narrative: Patient presents with some epigastric area pain. This is been going off and on for 2 or so months. It may be longer. 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 Exertion does not bother it. She does not know if eating bothers it. Is not uncommon for to wake her up early in the morning. She does feel like it is heartburn right now. It is in the epigastric and goes up to the lower chest. It is also in the right upper quadrant though. No abdominal surgery. No recent travel, surgery, immobilization, personal history of DVT or PE. She does not actually know her family history as she is adopted. She is not diabetic, hypertensive or high cholesterol. Patient is on Depo shot. However, she got her first ever shot 2 weeks ago and her symptoms started long before that. They have not changed with the shot. PFSH PFS Medical History Abnormal glucose affecting CHANTE (amniotic fluid index) borderline low Anxiety Chronic headaches Contraception management Depression History of tetanus, diphtheria, and acellular pertussis booster vaccination (Tdap) depression Seizures Sleep apnea Vaginal delivery Medical History no medical history Home Medications medroxyprogesterone 150 mg/mL intramuscular syringe 150 mg IM [id number] #1 ml 03/11/21 [Rx Last Taken Unknown] esomeprazole magnesium [Nexium] 20 mg PO DAILY #30 cap 03/28/21 [Rx Last Taken Unknown] Allergy/AdvReac Type Severity Reaction Status Date / Time No Known Allergies Allergy Verified 03/28/21 04:23 Family History Grandmother Diabetes Mother Fibromyalgia Father Bipolar 1 disorder Surgical History History of tonsillectomy History of wisdom tooth extraction, class IV edentulism Social History adopted: No household members: significant other housing: house number of children: 2 current occupational status: unemployed and disabled current occupational exposures/hazards: No pets and animals: Yes history of recent travel: No sexually active: Yes Smoking Status: Never smoker second hand exposure: No alcohol intake: never substance use type: does not use seatbelt use: always do you feel safe at home: Yes additional social history: Spouse- Denin ROS ROS ED Constitutional Constitutional ED: Denies chills or fever(s) Eyes Eyes: Denies blurry vision ENT ENT ED: Denies rhinorrhea or sore throat Cardiovascular Cardiovascular: Reports chest pain; Denies palpitations or racing heartbeat Respiratory/Chest Respiratory/Chest: Denies cough or dyspnea Gastrointestinal Gastrointestinal: Reports abdominal pain; Denies nausea or vomiting Genitourinary Genitourinary ED: Denies dysuria Musculoskeletal Musculoskeletal: Denies arthralgias, back pain, myalgias or neck pain Integumentary Denies rash Neurologic Neurologic: Denies headache(s), paresthesias or weakness Psychiatric Psychiatric: Reports anxiety and depression Endocrine Endocrinology: Denies polydipsia or polyuria Allergic/Immunologic Allergic/Immunologic ED: Denies mouth swelling or urticaria EXAM Physical Exam Const Vital Signs: 03/28/21 04:20 Temperature 97.4 F L Temperature Source Temporal Pulse Rate 77 Respiratory Rate 18 Blood Pressure 126/86 H Blood Pressure Mean 99 Pulse Ox 100 Positive well nourished and well developed General Appearance ED: well developed and NAD HEENT Reports moist mucous membranes Negative for trauma Eyes General Eye ED: Negative for pale conjunctiva or scleral icterus Neck no JVD Chest Wall inspection of chest normal Chest Narrative: She does have some mild lower sternal tenderness. However it does not fully reproduce her symptoms. Resp normal respiratory effort and clear to auscultation bilaterally Effort and Inspection: Negative for pain with movement Auscultation: Negative for rales, rhonchi or wheezes Cardio regular rate, regular rhythm and no murmurs GI normal to inspection, nondistended, normoactive bowel sounds GI Narrative: Abdomen is nondistended. Bowel sounds are normal. She does have some mild epigastric and mild to moderate right upper quadrant tenderness. No tenderness at all in the lower abdomen. There is no rebound or guarding anywhere. Palpation: soft Back/Spine no CVA tenderness Extremity normal to inspection General Extremety ED: Negative for edema or tenderness General Extremity: Negative for edema Neuro Sensorium / Orientation: alert Psych mental status grossly normal Skin no rashes or lesions noted MDM MDM MDM Narrative Medical decision making narrative: Patient CBC is normal. Electrolytes show minimal elevation of chloride. Liver function tests are all normal. Troponin is negative. EKG showed no acute process. Patient is rechecked. She is asymptomatic now. Her abdomen is benign. I explained that the patient should try Prilosec or Nexium [id number]. She can take this once a day. I would like to see if this helps her over time. She should call her private physician for follow-up. They may want to do outpatient ultrasound if she continues to have symptoms as some of her pain was right upper quadrant. However, her symptoms are resolved and her blood work is normal at this time. Her abdomen is now benign. Her symptoms have been going on for months. I think the ultrasound can be done as an outpatient if needed. Lab Data Attestation: I reviewed the patient's lab results. Labs: Laboratory Results - last 24 hr 03/28/21 03/28/21 05:10 05:10 WBC 9.0 RBC 4.41 Hgb 13.1 Hct 38.7 MCV 87.8 MCH 29.7 MCHC 33.9 RDW Std Deviation 38.9 RDW Coeff of Justin 12.0 Plt Count 205 MPV 9.3 Immature Gran % (Auto) 0.300 Neut % (Auto) 47.2 Lymph % (Auto) 41.6 H Boundary % (Auto) 7.7 Eos % (Auto) 2.9 Baso % (Auto) 0.3 Absolute Neuts (auto) 4.2 Absolute Lymphs (auto) 3.74 Nucleated RBC % 0 Sodium 141 Potassium 3.7 Chloride 109 H Carbon Dioxide 26.0 Anion Gap 6 BUN 22 H Creatinine 0.78 Estim Creat Clear Calc 92.73 Est GFR (MDRD) Af Amer 112 Est GFR (MDRD) Non-Af 93 BUN/Creatinine Ratio 28.2 H Glucose 95 Calcium 9.0 Total Bilirubin 0.30 AST 19 ALT 40 Alkaline Phosphatase 113 Troponin I High Sens 3 Total Protein 7.1 Albumin 3.5 Globulin 3.6 Albumin/Globulin Ratio 1.0 EKG Initial EKG: Comments: With mild bradycardia and mild sinus arrhythmia. No ventricular ectopy. No acute ST elevation or depression consistent with infarct or ischem ia. SD interval, QRS duration and QTc normal. Discharge Plan Triage Chief Complaint: Chest Other ED Provider: Lauri Whaley Dx/Rx/DC Orders Clinical Impression: Acute epigastric pain Instructions: ED Epigastric Pain Uncertain Cause Prescriptions: New esomeprazole magnesium [Nexium] 20 mg capsule,delayed release(DR/EC) 20 mg PO DAILY Qty: 30 RF: 0 No Action medroxyprogesterone [Depo-Provera] 150 mg/mL syringe 150 mg IM [id number] Qty: 1 RF: 3 Primary Care Provider: Jose Roberto Carrera Referrals: Jose Roberto Carrera DO [Primary Care Provider] - 3-5 Days Disposition Disposition: Home, Self Care
[2021-03-28] MEDS: Ketorolac 15 MG/ML Vial IV (05:13)
[2021-03-28 05:16] LABS: Absolute Lymphocyte Count 3.74 X10^3/uL (0.83-4.51); Absolute Neutrophil Count 4.2 X10^3/uL (2.0-7.7); Basophil# 0.03 X10^3/uL; Basophil% 0.3 % (0-1); Eosinophil# 0.26 X10^3/uL; Eosinophils% 2.9 % (0-5); Hematocrit 38.7 % (37-47); Hemoglobin 13.1 g/dL (12.0-15.0); Lymphocyte # 3.74 X10^3/ul (0.83-4.51); Lymphocyte % 41.6 % (19-41); Mean Corp Hgb Conc 33.9 g/dL (32-36); Mean Corpuscular Hgb 29.7 pg (27.0-32.0); Mean Corpuscular Volume 87.8 fL (81-99); Mean Platelet Vol. 9.3 fl (6.2-12.0); Monocyte# 0.69 X10^3/uL; Monocyte% 7.7 % (0-10); NRBC Flagged by Analyzer 0 % (0-5); Neutrophil # 4.23 X10^3/uL (2.7-7.7); Neutrophil % 47.2 % (47-70); Platelet Count 205 K/mm3 (150-450); RBC Distribution Width SD 38.9 fl (35.1-43.9); Red Blood Count 4.41 M/mm3 (4.2-5.4)
[2021-03-28 05:39] LABS: AST(SGOT) 19 U/L (15-37); Alanine Aminotransfer ALT/SGPT 40 U/L (13-56); Albumin, Serum 3.5 g/dL (3.2-5.0); Alkaline Phosphatase 113 U/L (45-117); Anion Gap 6 (5-15); BUN 22 mg/dL (7-18); BUN/Creat Ratio 28.2 RATIO (10-20); Chloride 109 mmol/L (98-107); Creatinine, Serum 0.78 mg/dL (0.55-1.02); EST Glomerular Filtration Rate 93 mL/min (>60); Est Glom Filt Rate - Afr Amer 112 mL/min (>60); Estimated Creatinine Clearance 92.73 ml/min; Globulin 3.6 g/dL (2.2-4.2); Glucose 95 mg/dL (74-106); Potassium 3.7 mmol/L (3.5-5.1); Protein, Total 7.1 g/dL (6.4-8.2); Sodium Level 141 mmol/L (136-145); Troponin-I HS 3 pg/mL (3.0-54.0)
[2021-03-28 07:33] VITALS: BP 128/73; PULSE 62; RESP 15; O2SAT 98
== END 2021-03-28 07:34 | disposition home or self-care (01) ==
PROVIDERS: Emergency Provider Emergency Medicine; PCP Student in an Organized Health Care Education/Training Program
DX: R10.13 Epigastric pain (principal)
CPT/HCPCS: 80053; 84484; 85025; 93005; 96374; 99282; A4216

== ENCOUNTER 2021-08-27 21:15 | Emergency (ER) | payer MEDICAID, SELFPAY ==
[2021-08-27 21:16] VITALS: BP 157/106; PULSE 72; RESP 15; TEMP 36; O2SAT 98; BMI 28.8
--- NOTE | 2021-08-27 22:01 | EX.ED.DYSGE1 ---
HPI History of Present Illness Chief Complaint: Headache Informant: patient Onset/Context/Timing Onset: Yesterday Context: Gradual Onset Timing: Continuous Quality: Sharp, dull Location: Left side of head, neck, arm, and chest Worsened by: Walking Relieved by: Nothing Narrative Narrative: Patient presents with lightheadedness, left-sided head pain, and slurred speech that began yesterday. Patient states it began gradually. Patient states her headache is sharp and dull. Patient states it radiates into her left side of her neck and left side of her chest and left arm. Patient states it is worse with walking. Patient states nothing makes it better. Patient denies any shortness of breath or cough. Patient states that her boss also noticed that her speech was slurred yesterday. Currently, patient denies any headaches. [facility] Medical History Abnormal glucose affecting CHANTE (amniotic fluid index) borderline low Anxiety Chronic headaches Contraception management Depression History of tetanus, diphtheria, and acellular pertussis booster vaccination (Tdap) depression Seizures Sleep apnea Vaginal delivery Home Medications medroxyprogesterone 150 mg/mL intramuscular syringe 150 mg IM [id number] #1 ml 03/11/21 [Rx Last Taken Unknown] Allergy/AdvReac Type Severity Reaction Status Date / Time No Known Allergies Allergy Verified 08/27/21 21:18 Family History Grandmother Diabetes Mother Fibromyalgia Father Bipolar 1 disorder Surgical History History of tonsillectomy History of wisdom tooth extraction, class IV edentulism no surgical history Social History adopted: No household members: significant other housing: house number of children: 2 current occupational status: unemployed and disabled current occupational exposures/hazards: No pets and animals: Yes history of recent travel: No sexually active: Yes Smoking Status: Never smoker second hand exposure: No alcohol intake: never substance use type: does not use seatbelt use: always do you feel safe at home: Yes additional social history: Spouse- Denin ROS ROS ED Constitutional Constitutional ED: Denies chills or fever(s) Eyes Eyes: Denies blurry vision or change in vision ENT ENT ED: Denies rhinorrhea or sore throat Cardiovascular Cardiovascular: Reports chest pain; Denies palpitations Respiratory/Chest Respiratory/Chest: Denies cough or dyspnea Gastrointestinal Gastrointestinal: Denies nausea or vomiting Genitourinary Genitourinary ED: Denies dysuria or hematuria Musculoskeletal Musculoskeletal: Reports neck pain; Denies back pain Integumentary Denies abscess or rash Neurologic Neurologic: Reports headache(s); Denies weakness Allergic/Immunologic Allergic/Immunologic ED: Denies mouth swelling or urticaria EXAM Physical Exam Const Vital Signs: 08/27/21 21:16 Temperature 96.8 F L Temperature Source Temporal Pulse Rate 72 Respiratory Rate 15 Blood Pressure 157/106 H Blood Pressure Mean 123 Pulse Ox 98 Oxygen Delivery Method Room Air Positive well nourished and well developed General Appearance ED: well developed and NAD HEENT Reports moist mucous membranes Neck supple and no JVD Resp normal respiratory effort and clear to auscultation bilaterally Cardio regular rate and regular rhythm GI normal to inspection, nondistended, normoactive bowel sounds and non-tender Palpation: soft Extremity normal to inspection General Extremety ED: Negative for edema or tenderness General Extremity: Negative for edema Neuro oriented x3, CN's II-XII intact bilaterally and no sensory deficits noted Sensorium / Orientation: alert Motor Exam: strength 5/5 throughout Psych mental status grossly normal MDM MDM MDM Narrative Medical decision making narrative: Patient was given IV fluids. CT scan of the brain was obtained. There is no acute intracranial abnormality. This was interpreted by the radiologist and reviewed by myself. CBC was within normal limits. Comprehensive metabolic profile was within normal limits. Urinalysis was within normal limits. Serum hCG was negative. Patient was advised of her findings. Patient was instructed to follow-up with her primary care physician in 5 to 7 days. Patient was instructed to return if worse in any way. Patient understood and was agreeable with the plan. All questions were answered. Lab Data Attestation: I reviewed the patient's lab results. Labs: Laboratory Results - last 24 hr 08/27/21 08/27/21 08/27/21 22:15 22:25 22:25 WBC 9.1 RBC 4.29 Hgb 12.9 Hct 37.2 MCV 86.7 MCH 30.1 MCHC 34.7 RDW Std Deviation 40.1 RDW Coeff of Justin 12.8 Plt Count 205 MPV 9.8 Immature Gran % (Auto) 0.200 Neut % (Auto) 45.5 L Lymph % (Auto) 41.9 H King % (Auto) 8.5 Eos % (Auto) 3.6 Baso % (Auto) 0.3 Absolute Neuts (auto) 4.1 Absolute Lymphs (auto) 3.83 Nucleated RBC % 0 Sodium 141 Potassium 4.1 Chloride 108 H Carbon Dioxide 27.0 Anion Gap 6 BUN 18 Creatinine 0.96 Estim Creat Clear Calc 74.67 Est GFR (MDRD) Af Amer 88 Est GFR (MDRD) Non-Af 73 BUN/Creatinine Ratio 18.8 Glucose 92 Calcium 9.1 Total Bilirubin 0.40 AST 36 ALT 29 Alkaline Phosphatase 92 Total Protein 7.2 Albumin 3.8 Globulin 3.4 Albumin/Globulin Ratio 1.1 Serum , Qual Urine Color Yellow Urine Clarity Sl. Cloudy Urine pH 6.0 Ur Specific [place] 1.025 Urine Protein Negative Urine Glucose (UA) Normal Urine Ketones 5 H Urine Occult Blood Negative Urine Nitrite Negative Urine Bilirubin Negative Urine Urobilinogen Normal Ur Leukocyte Esterase 25 H Urine RBC 0 SEEN Urine WBC 0-5 SEEN Ur Squamous Epith Cells 0-5 SEEN Amorphous Sediment 1+ URATE Urine Bacteria 0 SEEN Urine Mucus 0 SEEN 08/27/21 22:25 WBC RBC Hgb Hct MCV MCH MCHC RDW Std Deviation RDW Coeff of Justin Plt Count MPV Immature Gran % (Auto) Neut % (Auto) Lymph % (Auto) King % (Auto) Eos % (Auto) Baso % (Auto) Absolute Neuts (auto) Absolute Lymphs (auto) Nucleated RBC % Sodium Potassium Chloride Carbon Dioxide Anion Gap BUN Creatinine Estim Creat Clear Calc Est GFR (MDRD) Af Amer Est GFR (MDRD) Non-Af BUN/Creatinine Ratio Glucose Calcium Total Bilirubin AST ALT Alkaline Phosphatase Total Protein Albumin Globulin Albumin/Globulin Ratio Serum , Qual NEGATIVE Urine Color Urine Clarity Urine pH Ur Specific [place] Urine Protein Urine Glucose (UA) Urine Ketones Urine Occult Blood Urine Nitrite Urine Bilirubin Urine Urobilinogen Ur Leukocyte Esterase Urine RBC Urine WBC Ur Squamous Epith Cells Amorphous Sediment Urine Bacteria Urine Mucus Radiography Diagnostic Testing: Clinical Impression(s) from Imaging Studies Brain CT 08/27/21 22:07 IMPRESSION: Normal unenhanced CT scan of the brain. Acute right maxillary sinusitis. Electronically Signed: Bello Lerner MD at 22:44 EDT , Discharge Plan Triage Chief Complaint: Headache ED Provider: Yvon Toledo Dx/Rx/DC Orders Clinical Impression: Headache, Paresthesias Instructions: ED Headache Unspecified, ED Paraesthesias Prescriptions: No Action medroxyprogesterone [Depo-Provera] 150 mg/mL syringe 150 mg IM [id number] Qty: 1 RF: 3 Primary Care Provider: Jose Roberto Carrera Referrals: Jose Roberto Carrera DO [Primary Care Provider] - 5-7 Days Disposition Disposition: Home, Self Care
--- NOTE | 2021-08-27 22:07 | CT_ITS ---
STUDY: CT BRAIN WITHOUT CONTRAST REASON FOR EXAM: Female, 31 years old. Headache RADIATION DOSAGE (If Supplied By Facility): CTDIvol = ( 44.99 ) mGy, DLP = ( 796.11 ) mGycm TECHNIQUE: Transaxial CT imaging of the brain was performed without administration of intravenous contrast material. Individualized dose optimization techniques were used for this CT. COMPARISON: 12/28/2019 FINDINGS: Normal soft tissue structures. Normal calvarium. Normal size ventricles and extra-axial spaces for the patient''s age. Normal white matter tracts of the cerebral hemispheres. Normal basal ganglia and thalami. Normal brainstem. Normal cerebellum. There is no intracranial hemorrhage. There are no findings of an acute ischemic infarction. Air-fluid level in the right maxillary sinus consistent with acute sinusitis. CT/Brain/Head without Contrast IMPRESSION: Normal unenhanced CT scan of the brain. Acute right maxillary sinusitis. Electronically Signed: Bello Lerner MD at 22:44 EDT ,
[2021-08-27] MEDS: 0.9% Normal Saline 1,000 ML 1000 ML IV (22:22)
[2021-08-27 22:29] LABS: Bacteria 0 SEEN /hpf (None Seen); Mucous, Urine 0 SEEN /hpf (<or=2+); Red Blood Cells-Urine 0 SEEN /hpf (0-5)
[2021-08-27 22:35] LABS: Color, Urine Yellow (Yellow); Glucose, Dipstick Normal (Normal); Ketone-Dipstick 5 mg/dl (Negative); Leukocyte Esterase-Dipstick 25 /ul (Negative); Nitrite-Dipstick Negative (Negative); Occult Blood-Urine Negative /ul (Negative); Protein-Dipstick Negative (Negative); Specific Gravity, Urine 1.025 (1.002-1.030); Urine Bilirubin Dipstick Negative (Negative); Urine Clarity Sl. Cloudy (Clear); Urine Urobilinogen Normal (Normal)
[2021-08-27 22:41] LABS: Amorphous Sediment 1+ URATE; Squamous Epithelial Cells - UA 0-5 SEEN /hpf (5-10); White Blood Cells 0-5 SEEN /hpf (0-5)
[2021-08-27 22:42] LABS: Absolute Lymphocyte Count 3.83 X10^3/uL (0.83-4.51); Absolute Neutrophil Count 4.1 X10^3/uL (2.0-7.7); Basophil# 0.03 X10^3/uL; Basophil% 0.3 % (0-1); Eosinophil# 0.33 X10^3/uL; Eosinophils% 3.6 % (0-5); Hematocrit 37.2 % (37-47); Hemoglobin 12.9 g/dL (12.0-15.0); Lymphocyte # 3.83 X10^3/ul (0.83-4.51); Lymphocyte % 41.9 % (19-41); Mean Corp Hgb Conc 34.7 g/dL (32-36); Mean Corpuscular Hgb 30.1 pg (27.0-32.0); Mean Corpuscular Volume 86.7 fL (81-99); Mean Platelet Vol. 9.8 fl (6.2-12.0); Monocyte# 0.78 X10^3/uL; Monocyte% 8.5 % (0-10); NRBC Flagged by Analyzer 0 % (0-5); Neutrophil # 4.14 X10^3/uL (2.7-7.7); Neutrophil % 45.5 % (47-70); Platelet Count 205 K/mm3 (150-450); RBC Distribution Width CV 12.8 % (11.6-14.6); RBC Distribution Width SD 40.1 fl (35.1-43.9); Red Blood Count 4.29 M/mm3 (4.2-5.4); White Blood Count 9.1 K/mm3 (4.4-11.0)
[2021-08-27 22:55] LABS: Internal QC Validated? YES +Cl - CLEAR BKGD; Pregnancy, Serum, hCG Quali. NEGATIVE Negative
[2021-08-27 23:00] LABS: ALB/GLOB Ratio 1.1 RATIO (0.9-2.4); AST(SGOT) 36 U/L (15-37); Alanine Aminotransfer ALT/SGPT 29 U/L (13-56); Albumin, Serum 3.8 g/dL (3.2-5.0); Alkaline Phosphatase 92 U/L (45-117); Anion Gap 6 (5-15); BUN 18 mg/dL (7-18); BUN/Creat Ratio 18.8 RATIO (10-20); Calcium,Total 9.1 mg/dL (8.5-10.1); Chloride 108 mmol/L (98-107); Creatinine, Serum 0.96 mg/dL (0.55-1.02); EST Glomerular Filtration Rate 73 mL/min (>60); Est Glom Filt Rate - Afr Amer 88 mL/min (>60); Estimated Creatinine Clearance 74.67 ml/min; Globulin 3.4 g/dL (2.2-4.2); Glucose 92 mg/dL (74-106); Potassium 4.1 mmol/L (3.5-5.1); Protein, Total 7.2 g/dL (6.4-8.2); Sodium Level 141 mmol/L (136-145)
== END 2021-08-28 00:23 | disposition home or self-care (01) ==
PROVIDERS: Emergency Provider Emergency Medicine; PCP Student in an Organized Health Care Education/Training Program; Visit Provider Emergency Medicine
DX: R51.9 Headache, unspecified (principal); R20.2 Paresthesia of skin
CPT/HCPCS: 70450; 80053; 81001; 84703; 85025; 96360; 99282; J7030; A4216

== ENCOUNTER 2021-09-15 10:11 | Emergency (ER) | payer MEDICAID, SELFPAY ==
[2021-09-15 10:12] VITALS: BP 93/68; PULSE 87; RESP 14; TEMP 36.4; O2SAT 97; BMI 29.8
--- NOTE | 2021-09-15 10:39 | CT_ITS ---
STUDY: CT ABDOMEN AND PELVIS WITH CONTRAST REASON FOR EXAM: Female, 31 years old. Right sided abd pain RADIATION DOSAGE (If Supplied By Facility): CTDIvol = ( 10.33 ) mGy, DLP = ( 652.99 ) mGycm TECHNIQUE: Transaxial images were obtained from the dome of the diaphragm to the symphysis pubis without oral contrast. IV 75mL Isovue-300 was administered. Sagittal and coronal images were reconstructed. Individualized dose optimization techniques were used for this CT. COMPARISON: None. FINDINGS: The visualized lung bases are unremarkable. The visualized portions of the heart are within normal limits. Normal liver. Normal gallbladder and extrahepatic biliary system. Normal spleen. Normal pancreas. Normal bilateral adrenal glands. Normal right kidney. Normal left kidney. Normal visualized stomach. Normal small intestine. Normal colon. The appendix is visualized and appears normal. Normal abdominal aorta. Normal inferior vena cava. Normal retroperitoneum. Normal urinary bladder. Normal abdominal wall. Normal osseous structures. CT/Abdomen/Pelvis W IV Cont ONLY IMPRESSION: Normal enhanced CT of the abdomen and pelvis. Electronically Signed: Kvng Chan MD at 13:06 EDT ,
--- NOTE | 2021-09-15 10:49 | ED.VIS.GI ---
HPI HPI - GI History of Present Illness Chief Complaint: Abd Pain Informant: patient Abdominal Pain/Flank Pain Onset: Days Context: Gradual Onset Quality: Aching Current Severity: Mild Maximum Severity: Mild Worsened by: Nothing Relieved by: Nothing Nausea/Vomiting/Emesis GI Symptom: Positive for Nausea and Vomiting Onset: Days Severity: Mild Diarrhea/Melena/Hematochezia GI Symptom: Positive for Diarrhea and Hematochezia; Negative for Melena Onset: Yesterday Stool Quality: Positive for Watery Severity: Mild Associated Symptoms Associated Symptoms: Negative for Dysuria, Frequency, Hematuria and Urgency Narrative Narrative: 31 old female history of asthma. States she started feeling ill about 3 days ago with nausea and then started having diarrhea 2 days ago was small amounts of blood which she thinks is from hemorrhoids. No melena. And last night and today started having vomiting. Denies fever. She was seen in urgent care because she had right-sided abdominal pain they sent her to the emergency department. She is currently breast-feeding. No prior abdominal surgeries. Last menstrual period was a year ago because she has been breast-feeding. Denies any vaginal bleeding or discharge. No dysuria. Prior similar symptoms: Yes Recent Illness/Hospitalization: No PFSH PFSH Medical History Abnormal glucose affecting CHANTE (amniotic fluid index) borderline low Anxiety Chronic headaches Contraception management Depression History of tetanus, diphtheria, and acellular pertussis booster vaccination (Tdap) depression Seizures Sleep apnea Vaginal delivery Home Medications ondansetron 4 mg PO Q6H PRN #7 tab 09/15/21 [Rx Last Taken Unknown] Allergy/AdvReac Type Severity Reaction Status Date / Time No Known Allergies Allergy Verified 09/15/21 10:15 Family History Grandmother Diabetes Mother Fibromyalgia Father Bipolar 1 disorder Surgical History History of tonsillectomy History of wisdom tooth extraction, class IV edentulism Social History adopted: No household members: significant other housing: house number of children: 2 current occupational status: unemployed and disabled current occupational exposures/hazards: No pets and animals: Yes history of recent travel: No sexually active: Yes Smoking Status: Never smoker second hand exposure: No alcohol intake: never substance use type: does not use seatbelt use: always do you feel safe at home: Yes additional social history: Spouse- Denin ROS ROS ED ROS Narrative Nausea, vomiting and diarrhea. Abdominal pain. Review of Systems ROS Unobtainable: Denies due to encephalopathy Constitutional Constitutional ED: Denies fever(s) ENT ENT ED: Denies ear pain Cardiovascular Cardiovascular: Denies chest pain Respiratory/Chest Respiratory/Chest: Denies dyspnea Gastrointestinal Gastrointestinal: Reports abdominal pain, diarrhea, nausea and vomiting; Denies constipation or melena Genitourinary Genitourinary ED: Denies dysuria or hematuria Musculoskeletal Musculoskeletal: Denies myalgias Integumentary Denies rash Neurologic Neurologic: Denies headache(s) Psychiatric Psychiatric: Denies depression Endocrine Endocrinology: Denies polyuria Hematologic/Lymphatic Hematologic/Lymphatic: Denies easy bruising Allergic/Immunologic Allergic/Immunologic ED: Denies urticaria EXAM Physical Exam Narrative Exam Narrative: Well-appearing 31-year-old female vital signs stable afebrile. H EENT exam unremarkable. Moist extremities. Neck nontender. No lymphadenopathy. Lungs clear to auscultation. Heart regular rhythm no murmur. Abdomen soft nondistended normal bowel sounds no peritoneal signs. Tender to both right upper and right lower quadrant. No Daniel sign. Left side abdomen is nontender. No hernia or mass. No distention. Back nontender. Moving all 4 extremities. Neurologically she is awake and alert. Const Vital Signs: 09/15/21 10:12 09/15/21 12:18 Temperature 97.6 F L Temperature Source Temporal Pulse Rate 87 68 Respiratory Rate 14 14 Blood Pressure 93/68 99/68 Blood Pressure Mean 76 78 Pulse Ox 97 99 Oxygen Delivery Method Room Air Room Air Positive well nourished and well developed; Negative for cachectic, contractures or unkempt General Appearance ED: well developed and NAD; Negative for unkempt, cachectic, contractures or pallor Nutritional Appearance: Negative for cachectic HEENT Reports moist mucous membranes normocephalic and atraumatic; Negative for trauma or tenderness Eyes PERRL and EOMs intact bilaterally General Eye ED: Negative for pale conjunctiva or scleral icterus Neck no lymphadenopathy, supple and no JVD General: Negative for tenderness Resp normal respiratory effort and clear to auscultation bilaterally Auscultation: Negative for rales, rhonchi or wheezes Cardio regular rate, regular rhythm, S1 normal heart sound, S2 normal heart sound and no murmurs GI non-distended and no masses; Negative for non-tender Inspection: Negative for abdominal distention Auscultation: normoactive bowel sounds; Negative for hyperactive bowel sounds or hypoactive bowel sounds Palpation: soft and tender; Negative for guarding, rigid or rebound tenderness present Back/Spine no CVA tenderness General Back: Negative for CVA tenderness Cervical Spine: Negative for cervical spine tenderness Thoracic Spine / Upper Back: Negative for thoracic spinal tenderness Extremity full ROM General Extremety ED: Negative for edema or tenderness General Extremity: Negative for edema Neuro moves all extremities Sensorium / Orientation: alert, oriented to person, oriented to place and oriented to time; Negative for orientation impaired, confused, lethargic or stuporous Motor Exam: strength 5/5 throughout Psych mental status grossly normal and thought process normal Appearance: Negative for unkempt Attitude: No agitated Mood & Affect: Negative for depressed, anxious or tearful Skin no wounds General Skin Exam: Negative for jaundice or pallor Lesions: no lesions Rashes: no rashes MDM MDM MDM Narrative Medical decision making narrative: 31-year-old female with nausea vomiting diarrhea and abdominal pain. Clinical [place] is a viral syndrome. With her discomfort in the right upper quadrant and right lower quadrant a CAT scan will also be obtained to rule out appendicitis. Labs for other etiologies such as gallbladder disease etc. Treated with IV fluids. IV Zofran. Exam patient is doing well at noon. Mom is coming down with similar symptoms. We went over her test results. Were awaiting the CAT scan. Patient doing well at 1:35 PM and will be discharged home. Lab Data Attestation: I reviewed the patient's lab results. Lab results narrative: This is a white count of 7. H&H 14 and 42. Platelets of 217. Electrolytes show a gap of 6 normal BUN and creatinine 19 and 0.8. Liver enzymes are normal. test negative. Urinalysis negative. Abdominal pelvis CT negative. Read by the radiologist reviewed by me. Labs: Laboratory Results - last 24 hr 09/15/21 09/15/21 09/15/21 10:30 10:30 10:30 WBC 7.4 RBC 4.80 Hgb 14.3 Hct 42.7 MCV 89.0 MCH 29.8 MCHC 33.5 RDW Std Deviation 41.1 RDW Coeff of Justin 12.5 Plt Count 217 MPV 9.9 Immature Gran % (Auto) 0.100 Neut % (Auto) 71.7 H Lymph % (Auto) 19.1 [place] % (Auto) 5.8 Eos % (Auto) 3.0 Baso % (Auto) 0.3 Absolute Neuts (auto) 5.3 Absolute Lymphs (auto) 1.42 Nucleated RBC % 0 Sodium 139 Potassium 4.0 Chloride 106 Carbon Dioxide 27.0 Anion Gap 6 BUN 19 H Creatinine 0.80 Estim Creat Clear Calc 89.60 Est GFR (MDRD) Af Amer 108 Est GFR (MDRD) Non-Af 89 BUN/Creatinine Ratio 23.6 H Glucose 100 Calcium 9.0 Total Bilirubin 0.60 AST 19 ALT 35 Alkaline Phosphatase 114 Total Protein 7.3 Albumin 3.9 Globulin 3.4 Albumin/Globulin Ratio 1.1 Serum , Qual NEGATIVE Urine Color Urine Clarity Urine pH Ur Specific [place] Urine Protein Urine Glucose (UA) Urine Ketones Urine Occult Blood Urine Nitrite Urine Bilirubin Urine Urobilinogen Ur Leukocyte Esterase Urine RBC Urine WBC Ur Squamous Epith Cells Urine Bacteria Urine Mucus 09/15/21 11:05 WBC RBC Hgb Hct MCV MCH MCHC RDW Std Deviation RDW Coeff of Justin Plt Count MPV Immature Gran % (Auto) Neut % (Auto) Lymph % (Auto) [place] % (Auto) Eos % (Auto) Baso % (Auto) Absolute Neuts (auto) Absolute Lymphs (auto) Nucleated RBC % Sodium Potassium Chloride Carbon Dioxide Anion Gap BUN Creatinine Estim Creat Clear Calc Est GFR (MDRD) Af Amer Est GFR (MDRD) Non-Af BUN/Creatinine Ratio Glucose Calcium Total Bilirubin AST ALT Alkaline Phosphatase Total Protein Albumin Globulin Albumin/Globulin Ratio Serum , Qual Urine Color Yellow Urine Clarity Sl. Cloudy Urine pH 6.0 Ur Specific [place] 1.015 Urine Protein 15 H Urine Glucose (UA) Normal Urine Ketones Negative Urine Occult Blood Negative Urine Nitrite Negative Urine Bilirubin Negative Urine Urobilinogen Normal Ur Leukocyte Esterase 25 H Urine RBC 0 SEEN Urine WBC 0-5 SEEN Ur Squamous Epith Cells 0-5 SEEN Urine Bacteria 0 SEEN Urine Mucus 0 SEEN Radiography Diagnostic Testing: Clinical Impression(s) from Imaging Studies Abdomen/Pelvis CT 09/15/21 10:39 IMPRESSION: Normal enhanced CT of the abdomen and pelvis. Electronically Signed: Kvng Chan MD at 13:06 EDT , Discharge Plan Triage Chief Complaint: Abd Pain ED Provider: Duarte Mckeon Dx/Rx/DC Orders Clinical Impression: Viral gastroenteritis, Abdominal pain Instructions: Viral Gastroenteritis Prescriptions: New ondansetron 4 mg tablet,disintegrating 4 mg PO Q6H PRN (Reason: nausea and vomiting) Qty: 7 RF: 0 Primary Care Provider: Jose Roberto Carrera Referrals: Jose Roberto Carrera DO [Primary Care Provider] - 3-5 Days if not improving Activity Restrictions/Additional Instructions: Plenty of fluids and rest. Zofran as needed for nausea. Follow-up with your doctor if not improving. Disposition Disposition: Home, Self Care
[2021-09-15 10:58] LABS: Absolute Lymphocyte Count 1.42 X10^3/uL (0.83-4.51); Absolute Neutrophil Count 5.3 X10^3/uL (2.0-7.7); Basophil# 0.02 X10^3/uL; Basophil% 0.3 % (0-1); Eosinophil# 0.22 X10^3/uL; Hematocrit 42.7 % (37-47); Hemoglobin 14.3 g/dL (12.0-15.0); Lymphocyte # 1.42 X10^3/ul (0.83-4.51); Lymphocyte % 19.1 % (19-41); Mean Corp Hgb Conc 33.5 g/dL (32-36); Mean Corpuscular Hgb 29.8 pg (27.0-32.0); Mean Platelet Vol. 9.9 fl (6.2-12.0); Monocyte# 0.43 X10^3/uL; Monocyte% 5.8 % (0-10); NRBC Flagged by Analyzer 0 % (0-5); Neutrophil # 5.33 X10^3/uL (2.7-7.7); Neutrophil % 71.7 % (47-70); Platelet Count 217 K/mm3 (150-450); RBC Distribution Width CV 12.5 % (11.6-14.6); RBC Distribution Width SD 41.1 fl (35.1-43.9); White Blood Count 7.4 K/mm3 (4.4-11.0)
[2021-09-15] MEDS: Ondansetron 4 MG/2 ML Vial IV (10:59)
[2021-09-15] MEDS: 0.9% Normal Saline 1,000 ML 1000 ML IV (10:59)
[2021-09-15 11:07] LABS: Bacteria 0 SEEN /hpf (None Seen); Mucous, Urine 0 SEEN /hpf (<or=2+); Red Blood Cells-Urine 0 SEEN /hpf (0-5)
[2021-09-15 11:08] LABS: Color, Urine Yellow (Yellow); Glucose, Dipstick Normal (Normal); Ketone-Dipstick Negative (Negative); Leukocyte Esterase-Dipstick 25 /ul (Negative); Nitrite-Dipstick Negative (Negative); Occult Blood-Urine Negative /ul (Negative); Protein-Dipstick 15 mg/dl (Negative); Specific Gravity, Urine 1.015 (1.002-1.030); Urine Bilirubin Dipstick Negative (Negative); Urine Clarity Sl. Cloudy (Clear); Urine Urobilinogen Normal (Normal)
[2021-09-15 11:14] LABS: Squamous Epithelial Cells - UA 0-5 SEEN /hpf (5-10); White Blood Cells 0-5 SEEN /hpf (0-5)
[2021-09-15 11:15] LABS: ALB/GLOB Ratio 1.1 RATIO (0.9-2.4); AST(SGOT) 19 U/L (15-37); Alanine Aminotransfer ALT/SGPT 35 U/L (13-56); Albumin, Serum 3.9 g/dL (3.2-5.0); Alkaline Phosphatase 114 U/L (45-117); Anion Gap 6 (5-15); BUN 19 mg/dL (7-18); BUN/Creat Ratio 23.6 RATIO (10-20); Chloride 106 mmol/L (98-107); EST Glomerular Filtration Rate 89 mL/min (>60); Est Glom Filt Rate - Afr Amer 108 mL/min (>60); Globulin 3.4 g/dL (2.2-4.2); Glucose 100 mg/dL (74-106); Internal QC Validated? YES +Cl - CLEAR BKGD; Pregnancy, Serum, hCG Quali. NEGATIVE Negative; Protein, Total 7.3 g/dL (6.4-8.2); Sodium Level 139 mmol/L (136-145)
--- NOTE | 2021-09-15 12:02 | NURSING ---
Mother has been in ER, baby 11 months, she has not pumped or fed overnight and requesting a pump. Mother given double electric pump and instructions reviewed and milk bags given. Offered our refrigerator if needed for milk storage and if mother staying. Cleaning supplies also given for pump.
[2021-09-15 12:18] VITALS: BP 99/68; PULSE 68; RESP 14; O2SAT 99
[2021-09-15 13:44] VITALS: BP 124/69; PULSE 72; RESP 15; O2SAT 98
== END 2021-09-15 13:45 | disposition home or self-care (01) ==
PROVIDERS: Emergency Provider Emergency Medicine; PCP Student in an Organized Health Care Education/Training Program; Visit Provider Emergency Medicine
DX: A08.4 Viral intestinal infection, unspecified (principal)
CPT/HCPCS: 74177; 80053; 81001; 84703; 85025; 96361; 96374; 99283; J7030; Q9967; A4216; J2405

== ENCOUNTER → 2022-02-15 | Outpatient (CLI) | payer MEDICAID, SELFPAY | END | disposition home or self-care (01) | LOC: LABSPEC 15:47 | PROVIDERS: PCP Student in an Organized Health Care Education/Training Program; Visit Provider Nurse Practitioner Women's Health | DX: R30.0 Dysuria (principal) | CPT/HCPCS: 87086; 87088 ==

== ENCOUNTER → 2022-06-08 | Outpatient (CLI) | payer MEDICAID, SELFPAY ==
[2022-06-09 22:07] LABS: Chlamydia By Nucleic Acid AMP Negative (Negative)
[2022-06-09 23:14] LABS: Gonococcus By Nucleic Acid AMP Negative (Negative)
[2022-06-15 15:10] LABS: HPV APTIMA, High Risk Negative (Negative)
== END | disposition home or self-care (01) ==
LOC: LABSPEC 10:54
PROVIDERS: PCP Student in an Organized Health Care Education/Training Program; Referring Provider Nurse Practitioner Women's Health; Visit Provider Nurse Practitioner Women's Health
DX: Z12.4 Encounter for screening for malignant neoplasm of cervix (principal); Z11.3 Encounter for screening for infections with a predominantly sexual mode of transmission
CPT/HCPCS: 87491; 87591; 87624; 88175; G0145

== ENCOUNTER 2022-06-11 12:27 | Emergency (ER) | payer MEDICAID, SELFPAY ==
[2022-06-11 12:27] VITALS: BP 121/64; PULSE 83; RESP 16; TEMP 36.6; O2SAT 99; BMI 32.1
--- NOTE | 2022-06-11 12:49 | ED.VIS.FEGU ---
HPI HPI - Female History of Present Illness Chief Complaint: Vag Bleeding Informant: patient and spouse/S.O. Pain Pain: Positive for Pelvic Pain Onset: Today Context: Gradual Onset Timing: Waxes and wanes Quality: Positive for Cramping Location: Suprapubic Current Severity: Mild Maximum Severity: Mild Bleeding Issue: Positive for Vaginal bleeding Narrative Narrative: Patient present secondary to vaginal bleeding. Family states that she felt a lump up in her vagina few weeks ago. They thought maybe she had a fibroid. She was seen at [facility] PASTE MACHINE OPERATOR's office. Patient states that she then had a positive home test in mid May but started bleeding the next day. 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 She had an IUD placed on June 10. She states on Monday, 2 days later, the IUD fell out while she was at work. Today, June 11 she complains of vaginal bleeding. She has had some mild cramping. [facility] Medical History Abnormal glucose affecting CHANTE (amniotic fluid index) borderline low Anxiety Chronic headaches Contraception management Depression History of tetanus, diphtheria, and acellular pertussis booster vaccination (Tdap) depression Seizures Sleep apnea Vaginal delivery Home Medications ondansetron 4 mg disintegrating tablet 4 mg PO Q6H PRN nausea and vomiting #7 tabs 09/15/21 [Rx Last Taken Unknown] Allergy/AdvReac Type Severity Reaction Status Date / Time No Known Allergies Allergy Verified 06/08/22 09:07 Family History Grandmother Diabetes Mother Fibromyalgia Father Bipolar 1 disorder Surgical History History of tonsillectomy History of wisdom tooth extraction, class IV edentulism Social History adopted: No household members: significant other housing: house number of children: 2 current occupational status: unemployed and disabled current occupational exposures/hazards: No pets and animals: Yes history of recent travel: No sexually active: Yes Smoking Status: Never smoker second hand exposure: No alcohol intake: never substance use type: does not use seatbelt use: always do you feel safe at home: Yes additional social history: Spouse- Denin ROS ROS ED Constitutional Constitutional ED: Denies chills or fever(s) Eyes Eyes: Denies change in vision or discharge from eye(s) ENT ENT ED: Denies discharge from eye(s), rhinorrhea or sore throat Cardiovascular Cardiovascular: Denies chest pain or palpitations Respiratory/Chest Respiratory/Chest: Denies cough or dyspnea Gastrointestinal Gastrointestinal: Reports abdominal pain; Denies diarrhea, nausea or vomiting Genitourinary Genitourinary ED: Denies difficulty urinating or dysuria Musculoskeletal Musculoskeletal: Denies back pain or extremity pain Integumentary Denies Abrasions or rash Neurologic Neurologic: Denies headache(s) or weakness Psychiatric Psychiatric: Denies anxiety or depression Allergic/Immunologic Allergic/Immunologic ED: Denies lip swelling or urticaria EXAM Physical Exam Const Vital Signs: 06/11/22 12:27 Temperature 97.9 F Temperature Source Temporal Pulse Rate 83 Respiratory Rate 16 Blood Pressure 121/64 H Blood Pressure Mean 83 Pulse Ox 99 Oxygen Delivery Method Room Air Positive well nourished and well developed General Appearance ED: well developed HEENT Reports normocephalic and head/scalp atraumatic Eyes PERRL and EOMs intact bilaterally Neck supple Chest Wall inspection of chest normal and palpation of chest normal Resp normal respiratory effort and clear to auscultation bilaterally Cardio regular rate and regular rhythm GI GI Narrative: Minimal tenderness left lower quadrant. No guarding or rebound. Palpation: soft Narrative: Mild vaginal bleeding noted. No lesions. Os mildly open. No evidence of IUD. Back/Spine no CVA tenderness Extremity normal to inspection Neuro oriented x3 and no sensory deficits noted Sensorium / Orientation: alert Motor Exam: strength 5/5 throughout Psych mental status grossly normal Skin no rashes or lesions noted MDM MDM MDM Narrative Medical decision making narrative: CBC obtained to evaluate for anemia. test obtained. Lab Data Labs: Laboratory Results - last 24 hr 06/11/22 06/11/22 12:55 12:55 WBC 6.6 RBC 4.45 Hgb 13.4 Hct 39.2 MCV 88.1 MCH 30.1 MCHC 34.2 RDW Std Deviation 41.1 RDW Coeff of Justin 12.7 Plt Count 187 MPV 9.5 Immature Gran % (Auto) 0.500 Neut % (Auto) 58.5 Lymph % (Auto) 28.8 [place] % (Auto) 7.7 Eos % (Auto) 3.9 Baso % (Auto) 0.6 Absolute Neuts (auto) 3.9 Absolute Lymphs (auto) 1.91 Nucleated RBC % 0 Serum , Qual NEGATIVE Management Discussion w/another healthcare provider: [employer] D[employer] Crane Operator (Dr. Galvan, [employer] MACHINE OPERATOR) Treatment and Re-Evaluation Narrative: CBC was normal white count. Hemoglobin is normal at 13.4. test negative. I spoke with Dr. Galvan, on-call for [facility] [facility]. She wants the patient to call the office on Monday and they will plan to order an ultrasound prior to replacing the IUD. Patient is comfortable with this plan. Discharge Plan Triage Chief Complaint: Vag Bleeding ED Provider: Viviane Adame Dx/Rx/DC Orders Clinical Impression: Vaginal bleeding Instructions: ED Dysfunctional Uterine Bleeding Prescriptions: No Action ondansetron 4 mg tablet,disintegrating 4 mg PO Q6H PRN (Reason: nausea and vomiting) Qty: 7 0RF Primary Care Provider: Jose Roberto Carrera Referrals: Jose Roberto Carrera DO [Primary Care Provider] - Neeta Zaldivar [employer] PARTS DELIVERY DRIVER, [employer] PARTS DELIVERY DRIVER-C [Med Staff - Adv Practice Prof] - 1 Week Activity Restrictions/Additional Instructions: Please call the SPUN PASTE MACHINE OPERATOR office on Monday. Let them know that you were seen in the emergency room and your IUD has fallen out. They want to schedule an ultrasound before replacing your IUD. Disposition Disposition: Home, Self Care
[2022-06-11 13:06] LABS: Absolute Lymphocyte Count 1.91 X10^3/uL (0.83-4.51); Absolute Neutrophil Count 3.9 X10^3/uL (2.0-7.7); Basophil# 0.04 X10^3/uL; Basophil% 0.6 % (0-1); Eosinophil# 0.26 X10^3/uL; Eosinophils% 3.9 % (0-5); Hematocrit 39.2 % (37-47); Hemoglobin 13.4 g/dL (12.0-15.0); Lymphocyte # 1.91 X10^3/ul (0.83-4.51); Lymphocyte % 28.8 % (19-41); Mean Corp Hgb Conc 34.2 g/dL (32-36); Mean Corpuscular Hgb 30.1 pg (27.0-32.0); Mean Corpuscular Volume 88.1 fL (81-99); Mean Platelet Vol. 9.5 fl (6.2-12.0); Monocyte# 0.51 X10^3/uL; Monocyte% 7.7 % (0-10); NRBC Flagged by Analyzer 0 % (0-5); Neutrophil # 3.89 X10^3/uL (2.7-7.7); Neutrophil % 58.5 % (47-70); Platelet Count 187 K/mm3 (150-450); RBC Distribution Width CV 12.7 % (11.6-14.6); RBC Distribution Width SD 41.1 fl (35.1-43.9); Red Blood Count 4.45 M/mm3 (4.2-5.4); White Blood Count 6.6 K/mm3 (4.4-11.0)
[2022-06-11 13:22] LABS: Internal QC Validated? YES +Cl - CLEAR BKGD; Pregnancy, Serum, hCG Quali. NEGATIVE Negative
[2022-06-11 14:06] VITALS: BP 108/77; PULSE 64; RESP 15; O2SAT 98
== END 2022-06-11 14:06 | disposition home or self-care (01) ==
PROVIDERS: Emergency Provider Emergency Medicine; PCP Student in an Organized Health Care Education/Training Program; Visit Provider Emergency Medicine
DX: N93.9 Abnormal uterine and vaginal bleeding, unspecified (principal)
CPT/HCPCS: 84703; 85025; 99283; A4216

== ENCOUNTER 2023-03-07 16:59 | Emergency (ER) | payer MEDICAID, SELFPAY ==
[2023-03-07 17:01] VITALS: BP 131/76; PULSE 103; RESP 18; TEMP 36.4; O2SAT 98; BMI 35.2
--- NOTE | 2023-03-07 18:04 | EKG12_ITS ---
Test Reason : Blood Pressure : / mmHG Vent. Rate : 086 BPM Atrial Rate : 086 BPM P-R Int : 152 ms QRS Dur : 088 ms QT Int : 366 ms P-R-T Axes : 041 047 030 degrees QTc Int : 437 ms Normal sinus rhythm Normal ECG Confirmed by LUCIAN VORA, TIESHA ([id number]), continuity editor ANNA MARIE ALVAREZ ([id number]) on 03/09/2023 9:19:55 AM Referred By: Confirmed By:TIESHA EPSTEIN MD
--- NOTE | 2023-03-07 18:07 | EX.ED.DYSGE1 ---
HPI History of Present Illness Chief Complaint: General Illness Informant: patient Narrative Narrative: Patient presents with primary complaint of some bilateral lower extremity edema. Patient states that for the last month or so she has been getting symptoms where she will get cramping of her legs and occasionally cramping of her hands and arms. She took a magnesium tablet and an iron tablet but that did not help. She also states that she has been getting some swelling of her lower legs. 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 She denied any chest pain or dyspnea to me. She denied cough. She did say that when she bends over to put a collar on a dog or to get something for her children her chest feels full or tight while bending over but immediately resolves upon standing. She also complains that she has gained about 60 or 70 pounds in the last 2 years since her last child. But this has been a slow consistent weight gain and is not acute. No fevers or chills. No history of DVT or PE. Her symptoms been going on for a month or more. She called her primary physician for an appointment but was referred in here. [facility] Medical History Abnormal glucose affecting CHANTE (amniotic fluid index) borderline low Anxiety Chronic headaches Contraception management Depression History of tetanus, diphtheria, and acellular pertussis booster vaccination (Tdap) depression Seizures Sleep apnea Vaginal delivery Home Medications fluconazole 150 mg tablet (Diflucan) 150 mg PO Q3D 2 doses #2 tabs 06/14/22 [Rx Last Taken Unknown] medroxyprogesterone 150 mg/mL intramuscular syringe (Depo-Provera) 150 mg IM [id number] #1 mL 06/14/22 [Rx Last Taken Unknown] Allergy/AdvReac Type Severity Reaction Status Date / Time No Known Allergies Allergy Verified 03/07/23 17:01 Family History Grandmother Diabetes Mother Fibromyalgia Father Bipolar 1 disorder Surgical History History of tonsillectomy History of wisdom tooth extraction, class IV edentulism Social History adopted: No household members: significant other housing: house number of children: 2 current occupational status: unemployed and disabled current occupational exposures/hazards: No pets and animals: Yes history of recent travel: No sexually active: Yes Smoking Status: Never smoker second hand exposure: No alcohol intake: never substance use type: does not use seatbelt use: always do you feel safe at home: Yes additional social history: Spouse- Denin ROS ROS ED ROS Narrative A complete review of systems was performed and is negative except as documented in the history of present illness. Some specific details below. Constitutional: No recent fevers or chills. No malaise. She does have weight gain as in history of present illness. EYE: No discharge, visual complaints, or pain. ENT: No difficulty swallowing. No swelling. No pain. No reflux symptoms. CV: See history of present illness. Respiratory: See history of present illness. GI: No abdominal pain. No nausea vomiting diarrhea. No blood in stool. : No frequency dysuria or hematuria. Musculoskeletal: See history of present illness Skin: No rash. Nondiaphoretic. Neuro: No weakness or numbness. No paresthesias Endocrine: No polyuria or polydipsia. EXAM Physical Exam Narrative Exam Narrative: CONSTITUTIONAL: Patient is nontoxic in appearance. The patient looks comfortable. Work of breathing looks normal. HEENT: No notable trauma. Mucous membranes do look moist. No sinus tenderness. No indication of pain with swallowing. EYES: No conjunctival injection. No proptosis. No pallor. No icterus. NECK:No JVD. No stridor. CARDIOVASCULAR: Regular rate. Regular rhythm. No notable murmur. No JVD. Peripheral pulses are normal and equal x 4. RESPIRATORY: No respiratory distress. Breathing is unlabored. No wheezes. No rhonchi. No rales. No pain with a deep breath. No chest wall tenderness. Saturations are normal at 98% on room air showing no hypoxia. GASTROINTESTINAL: Not distended. Bowel sounds are normal. No tenderness. No guarding. No rebound. No palpable mass. No bruit is heard. GENITOURINARY: No tenderness over the bladder. No CVA tenderness. MUSCULOSKELETAL: Atraumatic. No bruising. No asymmetry. No distended veins. She does have a very small amount of pretibial edema at the lower third of both shins. This requires a very firm press but is present. I do not see any upper extremity edema even though she states she feels swollen there and gets cramping in that area also. NEUROLOGICAL: Patient is alert and appropriate. No focal deficit noted. SKIN: No noted rashes. No diaphoresis. No pallor. No petechiae. PSYCHIATRIC: Patient is calm. Mood is appropriate. Const Vital Signs: 03/07/23 17:01 03/07/23 18:06 Temperature 97.5 F L Temperature Source Temporal Pulse Rate 103 H Respiratory Rate 18 Respiratory Effort Normal Non-Labored Respiratory Pattern Normal Blood Pressure 131/76 H Blood Pressure Mean 94 Pulse Ox 98 Oxygen Delivery Method Room Air MDM MDM MDM Narrative Medical decision making narrative: I discussed the ultrasound with the tech. The final reading of the ultrasound is negative for any DVT. Patient's CBC is normal. Patient's electrolytes are overall normal other than minimal elevation of chloride which is nonspecific. Glucose is also normal. I explained to the patient that this is likely peripheral edema from standing all day. She has also gained 50 to 70 pounds in the last couple years. Losing this weight will also help her. I recommend elevation at night. She should use compression hose on during the day. She can get generic compression hose [id number]. She should follow-up with her primary physician. Lab Data Attestation: I reviewed the patient's lab results. Labs: Laboratory Results - last 24 hr 03/07/23 18:15 WBC 7.7 RBC 4.54 Hgb 13.5 Hct 39.9 MCV 87.9 MCH 29.7 MCHC 33.8 RDW Std Deviation 42.0 RDW Coeff of Justin 13.1 Plt Count 189 MPV 9.7 Immature Gran % (Auto) 0.300 Neut % (Auto) 65.1 Lymph % (Auto) 21.6 [facility] % (Auto) 9.6 Eos % (Auto) 3.0 Baso % (Auto) 0.4 Absolute Neuts (auto) 5.0 Absolute Lymphs (auto) 1.66 Nucleated RBC % 0 Sodium 142 Potassium 4.0 Chloride 110 H Carbon Dioxide 29.0 Anion Gap 3 L BUN 11 Creatinine 0.92 Estim Creat Clear Calc 77.21 Est GFR (MDRD) Af Amer 92 Est GFR (MDRD) Non-Af 76 BUN/Creatinine Ratio 12.0 Glucose 97 Calcium 9.2 Radiography Diagnostic Testing: Clinical Impression(s) from Imaging Studies Venous Duplex 03/07/23 18:17 IMPRESSION: No evidence for DVT. Electronically Signed: Jeffrey Jay MD at 19:37 EST , EKG Initial EKG: Comments: My independent interpretation the patient's EKG shows normal sinus rhythm with a rate of 86. No ectopy. No acute ST elevation or depression. TN interval, QRS duration and QTc are all normal. Discharge Plan Triage Chief Complaint: General Illness ED Provider: Lauri Whaley Dx/Rx/DC Orders Clinical Impression: Weight gain, Edema, peripheral Instructions: ED Peripheral Edema, Bilateral Prescriptions: No Action fluconazole [Diflucan] 150 mg tablet 150 mg PO Q3D Qty: 2 0RF medroxyprogesterone [Depo-Provera] 150 mg/mL syringe 150 mg IM [id number] Qty: 1 5RF Stand Alone Forms: ED Work / School Excuse Primary Care Provider: Jose Roberto Carrera Referrals: Jose Roberto Carrera DO [Primary Care Provider] - 5-7 Days Disposition Disposition: Home, Self Care
--- NOTE | 2023-03-07 18:17 | US_ITS ---
STUDY: VENOUS DOPPLER ULTRASOUND - BILATERAL LOWER EXTREMITIES REASON FOR EXAM: Female, 32 years old. BILAT SWELLING AND LEG AND ARM PAIN TECHNIQUE: Ultrasound evaluation of the deep vein system to include ospina-scale imaging and compression was performed. Ospina-scale imaging and Doppler sonographic evaluation, including duplex spectral analysis and qualitative color flow sonography, was performed. COMPARISON: None. FINDINGS: RIGHT LEG Common Femoral Vein: Normal compression, spontaneity and augmentation. Normal color Doppler. Common Femoral Vein/Greater Saphenous Junction: Normal compression, spontaneity and augmentation. Normal color Doppler. Femoral Proximal: Normal compression, spontaneity and augmentation. Normal color Doppler. Femoral Middle: Normal compression, spontaneity and augmentation. Normal color Doppler. Femoral Distal: Normal compression, spontaneity and augmentation. Normal color Doppler. Popliteal Vein: Normal compression, spontaneity and augmentation. Normal color Doppler. Posterior Tibial Vein: Normal compression, spontaneity and augmentation. Normal color Doppler. Peroneal Vein: Normal compression, spontaneity and augmentation. Normal color Doppler. LEFT LEG Common Femoral Vein: Normal compression, spontaneity and augmentation. Normal color Doppler. Common Femoral Vein/Greater Saphenous Junction: Normal compression, spontaneity and augmentation. Normal color Doppler. Femoral Proximal: Normal compression, spontaneity and augmentation. Normal color Doppler. Femoral Middle: Normal compression, spontaneity and augmentation. Normal color Doppler. Femoral Distal: Normal compression, spontaneity and augmentation. Normal color Doppler. Popliteal Vein: Normal compression, spontaneity and augmentation. Normal color Doppler. Posterior Tibial Vein: Normal compression, spontaneity and augmentation. Normal color Doppler. Peroneal Vein: Normal compression, spontaneity and augmentation. Normal color Doppler. US/Venous Duplex Imag/Vic Extrem IMPRESSION: No evidence for DVT. Electronically Signed: Jeffrey Jay MD at 19:37 EST ,
[2023-03-07 18:27] LABS: Absolute Lymphocyte Count 1.66 X10^3/uL (0.83-4.51); Basophil# 0.03 X10^3/uL; Basophil% 0.4 % (0-1); Eosinophil# 0.23 X10^3/uL; Hematocrit 39.9 % (37-47); Hemoglobin 13.5 g/dL (12.0-15.0); Lymphocyte # 1.66 X10^3/ul (0.83-4.51); Lymphocyte % 21.6 % (19-41); Mean Corp Hgb Conc 33.8 g/dL (32-36); Mean Corpuscular Hgb 29.7 pg (27.0-32.0); Mean Corpuscular Volume 87.9 fL (81-99); Mean Platelet Vol. 9.7 fl (6.2-12.0); Monocyte# 0.74 X10^3/uL; Monocyte% 9.6 % (0-10); NRBC Flagged by Analyzer 0 % (0-5); Neutrophil % 65.1 % (47-70); Platelet Count 189 K/mm3 (150-450); RBC Distribution Width CV 13.1 % (11.6-14.6); Red Blood Count 4.54 M/mm3 (4.2-5.4); White Blood Count 7.7 K/mm3 (4.4-11.0)
[2023-03-07 18:59] LABS: Anion Gap 3 (5-15); BUN 11 mg/dL (7-18); Calcium,Total 9.2 mg/dL (8.5-10.1); Chloride 110 mmol/L (98-107); Creatinine, Serum 0.92 mg/dL (0.55-1.02); EST Glomerular Filtration Rate 76 mL/min (>60); Est Glom Filt Rate - Afr Amer 92 mL/min (>60); Estimated Creatinine Clearance 77.21 ml/min; Glucose 97 mg/dL (74-106); Sodium Level 142 mmol/L (136-145)
[2023-03-07 20:29] VITALS: BP 109/67; PULSE 90; O2SAT 97
== END 2023-03-07 20:31 | disposition home or self-care (01) ==
PROVIDERS: Emergency Provider Emergency Medicine; PCP Student in an Organized Health Care Education/Training Program; Visit Provider Emergency Medicine
DX: R63.5 Abnormal weight gain (principal); M79.89 Other specified soft tissue disorders; G47.30 Sleep apnea, unspecified
CPT/HCPCS: 80048; 85025; 93005; 93970; 99284; A4216

== ENCOUNTER 2023-11-27 14:18 | Emergency (ER) | payer MEDICAID, SELFPAY ==
[2023-11-27 14:19] VITALS: BP 114/77; PULSE 73; RESP 16; TEMP 36.3; O2SAT 100; BMI 35.9
--- NOTE | 2023-11-27 14:21 | EKG12_ITS ---
Test Reason : CP Blood Pressure : / mmHG Vent. Rate : 068 BPM Atrial Rate : 068 BPM P-R Int : 152 ms QRS Dur : 088 ms QT Int : 408 ms P-R-T Axes : 029 045 015 degrees QTc Int : 433 ms Normal sinus rhythm with sinus arrhythmia Nonspecific T wave abnormality Abnormal ECG Confirmed by BETZY VORA, LAURI ([id number]), photographic editor ANNA MARIE ALVAREZ ([id number]) on 12/01/2023 6:27:55 AM Referred By: Confirmed By:NAIDA BO MD
--- NOTE | 2023-11-27 14:50 | RAD_ITS ---
STUDY: X-RAY CHEST REASON FOR EXAM: Female, 33 years old. Chest pain TECHNIQUE: Single AP portable view of the chest. COMPARISON: Comparison is made with prior study December 07, 2019. FINDINGS: EKG electrodes are seen. The lungs are clear and expanded. There is no demonstrated pleural abnormality. Normal size heart. Normal mediastinum and rafa. Normal visualized pulmonary arteries. Normal visualized aortic arch and descending thoracic aorta. Normal visualized thoracic spine. Normal visualized ribs, clavicles, and shoulders. There is no demonstrated abnormality of the visualized soft tissue structures of the upper abdomen. RAD/Chest 1 View (Portable) IMPRESSION: Normal x-ray examination of the chest. Electronically Signed: Kvng Chan MD at 15:01 EDT ,
[2023-11-27 15:00] VITALS: BP 104/67; PULSE 77; RESP 25; O2SAT 96
[2023-11-27 15:03] LABS: Absolute Lymphocyte Count 2.56 X10^3/uL (0.83-4.51); Absolute Neutrophil Count 4.2 X10^3/uL (2.0-7.7); Basophil# 0.03 X10^3/uL; Basophil% 0.4 % (0-1); Eosinophil# 0.09 X10^3/uL; Eosinophils% 1.2 % (0-5); Hematocrit 42.5 % (37-47); Hemoglobin 14.2 g/dL (12.0-15.0); Lymphocyte # 2.56 X10^3/ul (0.83-4.51); Mean Corp Hgb Conc 33.4 g/dL (32-36); Mean Corpuscular Hgb 29.3 pg (27.0-32.0); Mean Corpuscular Volume 87.6 fL (81-99); Mean Platelet Vol. 9.6 fl (6.2-12.0); Monocyte# 0.43 X10^3/uL; Monocyte% 5.9 % (0-10); NRBC Flagged by Analyzer 0 % (0-5); Neutrophil # 4.18 X10^3/uL (2.7-7.7); Neutrophil % 57.1 % (47-70); Platelet Count 266 K/mm3 (150-450); RBC Distribution Width SD 41.6 fl (35.1-43.9); Red Blood Count 4.85 M/mm3 (4.2-5.4); White Blood Count 7.3 K/mm3 (4.4-11.0)
[2023-11-27 15:22] LABS: Anion Gap 6 (5-15); BUN 10 mg/dL (7-18); BUN/Creat Ratio 9.9 RATIO (10-20); Calcium,Total 9.4 mg/dL (8.5-10.1); Chloride 108 mmol/L (98-107); Creatinine, Serum 1.01 mg/dL (0.55-1.02); EST Glomerular Filtration Rate 68 mL/min (>60); Est Glom Filt Rate - Afr Amer 82 mL/min (>60); Estimated Creatinine Clearance 90.17 ml/min; Glucose 135 mg/dL (74-106); Potassium 3.3 mmol/L (3.5-5.1); Sodium Level 140 mmol/L (136-145); Troponin-I HS (w/2H Reflex) 4 pg/mL (3.0-54.0)
--- NOTE | 2023-11-27 15:30 | EDS_ITS ---
HPI History of Present Illness Chief Complaint: Chest Pain Informant: patient Onset/Context/Timing Onset: Weeks Activity at onset: gradual Timing: Continuous Location: Right Chest and Left Chest Current Severity: Mild Maximum Severity: Mild Worsened By: Nothing Relieved By: Nothing Associated Symptoms: Positive for Cough and Palpitations; Negative for Nausea, Vomiting, Diaphoresis, Dyspnea, Fever, Lightheadedness or Acid Reflux Narrative Narrative: 33-year-old female past medical history of asthma. No prior history of DVT or PE. States she has had chest pain for the last several weeks with a cough. And is developed palpitations last several days. The chest pains been constant for 3 weeks. Describes it as sharp bilateral. Nonproductive cough. No fever. Intermittent wheezing. Denies any calf pain. No history of DVT or PE no recent travel or surgery. She did have a miscarriage 2 to 3 weeks ago at 6 weeks. Prior Similar Symptoms: No Recent Illness/Hospitalization: No CVD Risk Factors: Negative for Hypertension or Smoking PE Risk Factors: Negative for Recent Travel/Surgery, Recent Immobilization, Prior DVT or PE, Cancer or OCP + Smoking + >/=35 TAD Risk Factors: Negative for Marfan's Syndrome [facility] Medical History Vaginal delivery CHANTE (amniotic fluid index) borderline low Abnormal glucose affecting History of tetanus, diphtheria, and acellular pertussis booster vaccination (Tdap) Contraception management depression Sleep apnea Depression Anxiety Chronic headaches Seizures Home Medications ?Medication ?Instructions ?Recorded ?Last Taken ?Type medroxyprogesterone 150 mg/mL 150 mg IM [id number] #1 mL 06/14/22 Unknown Rx intramuscular syringe (Depo-Provera) albuterol sulfate 90 mcg/actuation 2 inh inhalation PRN 11/27/23 Unknown History aerosol inhaler fluoxetine 10 mg capsule 10 mg PO DAILY 11/27/23 Unknown History furosemide 20 mg tablet 20 mg PO DAILY 11/27/23 Unknown History Allergy/AdvReac Type Severity Reaction Status Date / Time No Known Allergies Allergy Verified 11/27/23 14:20 Family History Grandmother Diabetes Mother Fibromyalgia Father Bipolar 1 disorder Surgical History History of tonsillectomy History of wisdom tooth extraction, class IV edentulism Social History adopted: No household members: significant other housing: house number of children: 2 current occupational status: unemployed and disabled current occupational exposures/hazards: No pets and animals: Yes history of recent travel: No sexually active: Yes Smoking Status: Never smoker second hand exposure: No alcohol intake: never substance use type: does not use seatbelt use: always do you feel safe at home: Yes additional social history: Spouse- Denin ROS ROS ED ROS Narrative Cough. Bilateral chest pain for weeks. Constitutional Constitutional ED: Denies chills or fever(s) Eyes Eyes: Reports none ENT ENT ED: Denies ear pain Cardiovascular Cardiovascular: Reports as per HPI, chest pain and palpitations Respiratory/Chest Respiratory/Chest: Reports cough Gastrointestinal Gastrointestinal: Denies abdominal pain or constipation Genitourinary Genitourinary ED: Denies dysuria or hematuria Musculoskeletal Musculoskeletal: Denies arthralgias Integumentary Denies abscess Neurologic Neurologic: Denies headache(s) Endocrine Endocrinology: Denies cold intolerance Hematologic/Lymphatic Hematologic/Lymphatic: Denies easy bleeding Allergic/Immunologic Allergic/Immunologic ED: Denies mouth swelling, tongue swelling or urticaria EXAM Physical Exam Narrative Exam Narrative: Well-appearing 33-year-old female. Vital signs stable afebrile. Pulse ox 100% on room air no signs of pox. H EENT exam unremarkable. Neck nontender no JVD. No lymphadenopathy. Lungs clear to auscultation bilaterally. Heart regular rhythm no murmur. Rate about 75. Chest wall ribs nontender. Abdomen soft nontender. Moving all 4 extremities. Calves are nontender without edema or cords. Neurologically she is awake alert no focal motor deficits. Benign exam. Const Vital Signs: 11/27/23 14:19 11/27/23 14:41 11/27/23 14:43 Temperature 97.4 F L Temperature Source Temporal Pulse Rate 73 Respiratory Rate 16 Respiratory Pattern Normal Blood Pressure 114/77 Blood Pressure Mean 89 Pulse Ox 100 Oxygen Delivery Method Room Air Room Air 11/27/23 15:00 11/27/23 16:00 11/27/23 17:00 Temperature Temperature Source Pulse Rate 77 84 80 Respiratory Rate 25 H 17 18 Respiratory Pattern Blood Pressure 104/67 145/56 H 101/67 Blood Pressure Mean 77 73 78 Pulse Ox 96 96 96 Oxygen Delivery Method Positive well nourished and well developed; Negative for obese, cachectic, contractures or unkempt General Appearance ED: well developed and NAD; Negative for unkempt, cachectic, contractures or pallor Nutritional Appearance: Negative for cachectic or obese HEENT Reports moist mucous membranes normocephalic and atraumatic; Negative for trauma or tenderness Eyes PERRL and EOMs intact bilaterally General Eye ED: Negative for pale conjunctiva Neck no lymphadenopathy, supple and no JVD General: Negative for tenderness Chest Wall inspection of chest normal and palpation of chest normal Chest: Negative for tenderness Resp normal respiratory effort and clear to auscultation bilaterally Effort and Inspection: Negative for respiratory distress Auscultation: Negative for rales, rhonchi, wheezes or diminished lung sounds Cardio regular rhythm, S1 normal heart sound, S2 normal heart sound and no murmurs Rate: Negative for bradycardia or tachycardic Rhythm: Negative for abnormal rhythm Peripheral Pulses: pulses 2+ throughout GI normal to inspection, nondistended, normoactive bowel sounds, soft to palpation, non-tender, non-distended and no masses Back/Spine no CVA tenderness and no thoracic nor lumbar tenderness General Back: Negative for CVA tenderness Cervical Spine: Negative for cervical spine tenderness Extremity normal to inspection General Extremety ED: Negative for edema, pulses abnormal or tenderness General Extremity: Negative for edema or pulses abnormal Neuro oriented x3 and CN's II-XII intact bilaterally Sensorium / Orientation: awake, alert, oriented to person, oriented to place and oriented to time; Negative for confused or lethargic Motor Exam: strength 5/5 throughout Psych mental status grossly normal Appearance: Negative for unkempt Attitude: No agitated Mood & Affect: Negative for depressed or tearful Skin no rashes or lesions noted and no wounds General Skin Exam: Negative for jaundice or pallor Rashes: No rashes noted Trauma: Negative for abrasion or laceration MDM MDM MDM Narrative Medical decision making narrative: 33-year-old female with atypical nonreproducible noncardiac sounding chest pain. Cardiac workup. D-dimer will be obtained due to her age and recent miscarriage. Repeat exam patient is doing well at 5:06 PM. Her workup is negative. Both D- dimer and troponin are negative. I do not think this is cardiac. She has no DVT or PE significant risk factors other than the miscarriage several weeks ago. I do not think she needs any further testing. She will be discharged home. History & Record Review Discussion w/independent historian: Patient Additional record(s) reviewed:: Prior inpatient record, Prior outpatient record, Prior ED visit and Prior labs Lab Data Attestation: I reviewed the patient's lab results. Lab results narrative: CBC normal. White count 7. H&H 14 and 42. Platelets 266. Electrolytes show potassium of 3.3. Gap 6. Normal BUN and creatinine. Glucose 135. Troponin 4. Chest x-ray normal. D-dimer normal at 0.28. Labs: Laboratory Results - last 24 hr 11/27/23 11/27/23 14:50 15:30 WBC 7.3 RBC 4.85 Hgb 14.2 Hct 42.5 MCV 87.6 MCH 29.3 MCHC 33.4 RDW Std Deviation 41.6 RDW Coeff of Justin 13.0 Plt Count 266 MPV 9.6 Immature Gran % (Auto) 0.400 Neut % (Auto) 57.1 Lymph % (Auto) 35.0 [place] % (Auto) 5.9 Eos % (Auto) 1.2 Baso % (Auto) 0.4 Absolute Neuts (auto) 4.2 Absolute Lymphs (auto) 2.56 Nucleated RBC % 0 D-Dimer Quant (PE/DVT) 0.28 Sodium 140 Potassium 3.3 L Chloride 108 H Carbon Dioxide 26.0 Anion Gap 6 BUN 10 Creatinine 1.01 Estim Creat Clear Calc 90.17 Est GFR (MDRD) Af Amer 82 Est GFR (MDRD) Non-Af 68 BUN/Creatinine Ratio 9.9 L Glucose 135 H Calcium 9.4 Troponin I High Sens 4 Radiography Chest X-Ray - ED: 1 View, Read by ED Physician, Normal, Heart, Lungs, Mediastinum, Bony Structures and No Acute Disease Diagnostic Testing: Clinical Impression(s) from Imaging Studies Chest X-Ray 11/27/23 14:50 IMPRESSION: Normal x-ray examination of the chest. Electronically Signed: Kvng Chan MD at 15:01 EDT , Chest x-ray, portable, single view shows no acute abnormality. Normal cardiac silhouette. Normal mediastinum. Interpreted both by myself and the radiologist. Rhythm Strip Rhythm Strip: Sinus Rhythm Rate: 68 Ectopy: None EKG Initial EKG: Attestation: I personally reviewed and interpreted this EKG as follows: Interpretation: Sinus Rhythm and No Acute Injury Pattern Comments: Normal sinus rhythm rate 68 no acute signs of [place] or ischemia. No ST elevation. Discharge Plan Triage Chief Complaint: Chest Pain ED Provider: Duarte Mckeon Dx/Rx/DC Orders Clinical Impression: Chest pain Instructions: ED Chest Pain, Uncertain Cause Prescriptions: No Action medroxyprogesterone [Depo-Provera] 150 mg/mL syringe 150 mg IM [id number] Qty: 1 5RF fluoxetine 10 mg capsule 10 mg PO DAILY furosemide 20 mg tablet 20 mg PO DAILY albuterol sulfate 90 mcg/actuation HFA aerosol inhaler 2 inh inhalation PRN Primary Care Provider: Jose Roberto Carrera Referrals: Jose Roberto Carrera, [Primary Care Provider] - 1 Week if not improving Activity Restrictions/Additional Instructions: All your tests were normal including EKG chest x-ray and labs. Motrin and/or Tylenol for pain. Follow-up with your doctor if not improving. Print Language: Congolese Disposition Disposition: Home, Self Care
[2023-11-27 16:00] VITALS: BP 145/56; PULSE 84; RESP 17; O2SAT 96
[2023-11-27 16:31] LABS: D-Dimer Quantitative (DVT/PE) 0.28 FEU/ug/m (0.27-0.49)
[2023-11-27 16:54] LABS: Reflex Troponin-HS? (from REC) Y
[2023-11-27 17:00] VITALS: BP 101/67; PULSE 80; RESP 18; O2SAT 96
[2023-11-27 17:12] VITALS: BP 107/67; PULSE 75; RESP 23; TEMP 36.1; O2SAT 98
== END 2023-11-27 17:16 | disposition home or self-care (01) ==
PROVIDERS: Emergency Provider Emergency Medicine; PCP Student in an Organized Health Care Education/Training Program; Visit Provider Emergency Medicine
DX: R07.89 Other chest pain (principal)
CPT/HCPCS: 71045; 80048; 84484; 85025; 85379; 93005; 99284

== ENCOUNTER 2023-12-23 13:28 | Emergency (ER) | payer SELFPAY ==
[2023-12-23 13:29] VITALS: BP 102/74; PULSE 89; RESP 16; TEMP 35.9; O2SAT 97; BMI 33.5
--- NOTE | 2023-12-23 13:51 | ED.RN ---
Attempted to call a Alejandra from pt. employer to see about drug and alcohol testing at [phone] and call states cannot be completed as dialed
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
--- NOTE | 2023-12-23 14:03 | ED.RN ---
pt. insists she is using workers comp. Pt. or myself cannot reach anyone from any number she has given us. This RN educated patient that if she did not get testing when she is supposed to they can deny her claim. pt. also requested we mail her boss someting about the claim which she was told we do not do.
[2023-12-23 14:25] VITALS: BP 126/67; PULSE 91; RESP 14; TEMP 36.8; O2SAT 100
== END 2023-12-23 14:30 | disposition home or self-care (01) ==
PROVIDERS: Emergency Provider Emergency Medicine; PCP Student in an Organized Health Care Education/Training Program; Visit Provider Emergency Medicine
DX: M54.2 Cervicalgia (principal)
CPT/HCPCS: 99282

== ENCOUNTER 2024-01-01 18:49 | Emergency (ER) | payer MEDICAID, SELFPAY ==
[2024-01-01 18:51] VITALS: BP 114/81; PULSE 69; RESP 16; TEMP 36.8; O2SAT 99
[2024-01-01 21:03] VITALS: BP 106/67; PULSE 59; RESP 12
[2024-01-01 21:04] VITALS: BMI 33.3
--- NOTE | 2024-01-01 21:20 | EKG12_ITS ---
Test Reason : DYSRHYTHMIA Blood Pressure : / mmHG Vent. Rate : 063 BPM Atrial Rate : 063 BPM P-R Int : 142 ms QRS Dur : 084 ms QT Int : 422 ms P-R-T Axes : 024 044 043 degrees QTc Int : 431 ms Sinus rhythm with marked sinus arrhythmia Otherwise normal ECG Confirmed by Delta James ([id number]), editorial director ANNA MARIE ALVAREZ ([id number]) on 01/02/2024 10:15:13 AM Referred By: Confirmed By:Delta James
--- NOTE | 2024-01-01 21:21 | CT_ITS ---
EXAM: CT HEAD WITHOUT INTRAVENOUS CONTRAST CLINICAL INDICATION: Headache. TECHNIQUE: Multiple axial images were obtained of the head without intravenous contrast. This CT exam was performed using one or more of the following dose reduction techniques: automated exposure control, adjustment of the mA and/or kV according to patient size, and/or use of iterative reconstruction technique. RADIATION DOSE: Total DLP: 779.24 mGy-cm. COMPARISON: Cranial CT of 08/27/2021 History: headache FINDINGS: BRAIN AND EXTRA-AXIAL SPACES: The lateral ventricles are upper normal in size, unchanged. No intra- or extra-axial hemorrhage. No evidence of acute infarct. No intracranial mass or mass effect. There is preservation of the garcia/white matter interface. Posterior fossa structures are unremarkable. Basal cisterns are patent. BONES/JOINTS: Temporomandibular joints are symmetric. No discrete lytic or blastic abnormalities. SINUSES: The visualized paranasal sinuses are clear. The previously noted findings of maxillary sinusitis have resolved. MASTOID AIR CELLS: Unremarkable. Clear. ORBITS: Visualized globes, extraocular muscles, optic nerves and retrobulbar fat appear unremarkable. SELLA: Unremarkable. No evidence for empty sella. CT/Brain/Head without Contrast IMPRESSION: Interval resolution of the previously noted findings of maxillary sinusitis. Otherwise stable. No acute findings in the head/brain. Electronically Signed: Librado Valenzuela MD at 22:08 EDT ,
[2024-01-01] MEDS: Metoclopramide 10 MG/2 ML Vial IV (21:44)
[2024-01-01] MEDS: 0.9% Normal Saline (1000mL) 1,000 ML 999 ML IV (21:44)
[2024-01-01] MEDS: Acetaminophen 500 MG Tablet 1000 MG PO (21:44)
[2024-01-01 21:53] LABS: Mucous, Urine 0 SEEN /hpf (<or=2+); Red Blood Cells-Urine 0 SEEN /hpf (0-5); Squamous Epithelial Cells - UA 0 SEEN /hpf (5-10)
--- NOTE | 2024-01-01 21:55 | RAD_ITS ---
EXAM: XR CHEST, 2 VIEWS CLINICAL INDICATION: syncope TECHNIQUE: Frontal and lateral views of the chest. COMPARISON: Previous chest radiographs of 11/27/2023 and 12/07/2019. FINDINGS: LUNGS AND PLEURAL SPACES: There is a subtle 7 x 8 mm noncalcified nodular opacity within the left midlung laterally, overlying the inferior scapula on today''s study, consistent with a benign nodule such as a granuloma; this nodule is seen upon retrospective review of the prior studies and is unchanged. No consolidation or edema. No pneumothorax. No effusion. HEART: Unremarkable. Cardiac silhouette not enlarged. Normal pulmonary vasculature. MEDIASTINUM: Central airways and mediastinal contour are unremarkable. Trachea is midline. No mediastinal widening. BONES/JOINTS: Unremarkable. No acute fracture. SOFT TISSUES: Unremarkable. RAD/Chest PA and Lateral IMPRESSION: No significant interval change or acute process. Electronically Signed: Librado Valenzuela MD at 23:00 EDT ,
[2024-01-01 22:05] LABS: Absolute Lymphocyte Count 3.23 X10^3/uL (0.83-4.51); Absolute Neutrophil Count 4.5 X10^3/uL (2.0-7.7); Basophil# 0.03 X10^3/uL; Basophil% 0.3 % (0-1); Eosinophils% 3.4 % (0-5); Hematocrit 41.8 % (37-47); Lymphocyte # 3.23 X10^3/ul (0.83-4.51); Lymphocyte % 36.9 % (19-41); Mean Corp Hgb Conc 33.5 g/dL (32-36); Mean Corpuscular Hgb 29.9 pg (27.0-32.0); Mean Corpuscular Volume 89.1 fL (81-99); Monocyte# 0.68 X10^3/uL; Monocyte% 7.8 % (0-10); NRBC Flagged by Analyzer 0 % (0-5); Neutrophil % 51.4 % (47-70); Platelet Count 219 K/mm3 (150-450); RBC Distribution Width SD 44.9 fl (35.1-43.9); Red Blood Count 4.69 M/mm3 (4.2-5.4); White Blood Count 8.8 K/mm3 (4.4-11.0)
[2024-01-01 22:07] LABS: Color, Urine Yellow (Yellow); Glucose, Dipstick Normal (Normal); Ketone-Dipstick Negative (Negative); Leukocyte Esterase-Dipstick 100 /ul (Negative); Nitrite-Dipstick Negative (Negative); Occult Blood-Urine Negative /ul (Negative); Protein-Dipstick Negative (Negative); Urine Bilirubin Dipstick Negative (Negative); Urine Clarity Clear (Clear); Urine Urobilinogen Normal (Normal)
[2024-01-01 22:22] LABS: ALB/GLOB Ratio 1.2 RATIO (0.9-2.4); AST(SGOT) 20 U/L (15-37); Alanine Aminotransfer ALT/SGPT 25 U/L (13-56); Alkaline Phosphatase 75 U/L (45-117); Anion Gap 4 (5-15); BUN 12 mg/dL (7-18); BUN/Creat Ratio 15.1 RATIO (10-20); Bacteria RARE /hpf (None Seen); Calcium,Total 9.6 mg/dL (8.5-10.1); Chloride 108 mmol/L (98-107); EST Glomerular Filtration Rate 89 mL/min (>60); Est Glom Filt Rate - Afr Amer 108 mL/min (>60); Estimated Creatinine Clearance 109.54 ml/min; Globulin 3.3 g/dL (2.2-4.2); Glucose 93 mg/dL (74-106); Internal QC Validated? YES +Cl - CLEAR BKGD; Potassium 3.9 mmol/L (3.5-5.1); Pregnancy, Urine Negative Negative; Protein, Total 7.3 g/dL (6.4-8.2); Sodium Level 141 mmol/L (136-145); Troponin-I HS 3 pg/mL (3.0-54.0); White Blood Cells 0-5 SEEN /hpf (0-5)
[2024-01-01 23:00] VITALS: BP 98/64; PULSE 61; RESP 14
--- NOTE | 2024-01-01 23:01 | EX.ED.DYSGE1 ---
HPI History of Present Illness Chief Complaint: Syncope Narrative Narrative: Patient is a 33-year-old female with past medical history of sleep apnea, depression, anxiety, seizure, chronic headaches who presented to the emergency department with a chief complaint of blacking out earlier this evening. She states that she was lying on the couch and noted that she blacked out and her mom could not get her to respond she states that her work wanted her evaluated prior to her coming in [facility]. Patient states that her symptoms of her chronic headaches have been going on for quite some time and she has an MRI scheduled she states that she has not had a CT of her head in the past. Patient states that she has not take anything for her headache at home. Patient states that she did have a headache today and this evening prior to this episode. She also states that she has noted that she has been having some feeling like her heart is racing in her chest as well but has not followed up with anybody for this. [facility] Medical History Vaginal delivery CHANTE (amniotic fluid index) borderline low Abnormal glucose affecting History of tetanus, diphtheria, and acellular pertussis booster vaccination (Tdap) Contraception management depression Sleep apnea Depression Anxiety Chronic headaches Seizures Home Medications ?Medication ?Instructions ?Recorded ?Last Taken ?Type albuterol sulfate 90 mcg/actuation 2 inh inhalation PRN 11/27/23 Unknown History aerosol inhaler fluoxetine 10 mg capsule 10 mg PO DAILY 11/27/23 Unknown History furosemide 20 mg tablet 20 mg PO DAILY 11/27/23 Unknown History cyclobenzaprine 10 mg tablet 10 mg PO TID PRN Muscle Spasm #15 12/23/23 Unknown Rx TABLETS ibuprofen 600 mg tablet 600 mg PO Q6H PRN PRN pain #20 12/23/23 Unknown Rx TABLETS Allergy/AdvReac Type Severity Reaction Status Date / Time No Known Allergies Allergy Verified 01/01/24 18:53 Family History Grandmother Diabetes Mother Fibromyalgia Father Bipolar 1 disorder Surgical History History of tonsillectomy History of wisdom tooth extraction, class IV edentulism Social History adopted: No household members: significant other housing: house number of children: 2 current occupational status: employed, unemployed and disabled current occupational exposures/hazards: No pets and animals: Yes history of recent travel: No sexually active: Yes Smoking Status: Never smoker second hand exposure: No alcohol intake: never substance use type: does not use seatbelt use: always do you feel safe at home: Yes additional social history: Spouse- Denin ROS ROS ED ROS Narrative Constitutional: Denies any fevers, chills, lightness, dizziness Eyes: Denies change in vision double vision blurry vision Cardiovascular: Complains of palpitations as noted above denies any chest pain Respiratory: Denies coughing wheezing shortness of breath Abdomen: Denies abdominal pain nausea vomit diarrhea : Denies any urinary symptoms Neurological: Denies numbness, weakness, tingling Musculoskeletal: Denies back pain Skin: Denies rashes or lesions EXAM Physical Exam Narrative Exam Narrative: General: Patient was lying in bed rest comfortably did not appear to be in acute distress Head: Atraumatic, normocephalic Eyes: PERRL bilateral, EOMI bilateral, no conjunctival injection noted Neck: Soft, supple, trach midline Cardiovascular: Regular rate and rhythm no murmurs gallops rubs noted Respiratory: Clear to auscultation bilaterally no rales rhonchi wheeze noted Abdomen: Soft, nondistended, no tenderness palpation, bowel sounds present x 4 Extremities: +5/5 strength noted in the bilateral upper and lower extremities, no pedal edema no exam, radial pulses +2/4 in the bilateral upper extremities Neurological: Patient following commands knew that she was at [facility] years 2023. NIH is 0 GCS 15 Skin: Warm, dry, intact Const Vital Signs: 01/01/24 18:51 01/01/24 21:03 01/01/24 21:06 Temperature 98.2 F Temperature Source Oral Pulse Rate 69 59 L Respiratory Rate 16 12 Respiratory Effort Normal Non-Labored Respiratory Pattern Normal Blood Pressure 114/81 H 106/67 Blood Pressure Mean 92 80 Pulse Ox 99 Oxygen Delivery Method Room Air MDM MDM MDM Narrative Medical decision making narrative: Patient is a 33-year-old female who presented to the emergency department with a chief complaint of blacking out. Patient will have workup performed here on the differential diagnose includes but not limited to chronic migraine headache, near syncope, syncope, electrolyte abnormalities. Once workup is obtained reviewed she will be reevaluated. Patient be given IV fluids, Reglan and Tylenol for her headache. Patient CBC reviewed showed no evidence of leukocytosis white blood count normal 8.8, hemoglobin stable at 14, platelet count normal at 219. Patient sodium normal at 141, potassium normal 3.9, creatinine normal at 0.80. Patient's AST and ALT were 20 and 25 respectively, troponin normal at 3. EKG was reviewed and showed sinus rhythm with a rate of 63 bpm. Patient's urinalysis did not reveal any evidence of infection and test was negative. Patient's CT head and brain without contrast showed no acute findings and her chest x-ray showed no acute cardiopulmonary processes this was reviewed by myself and by radiology. Did discuss results with the patient and she is feeling much improved from when she arrived. She would like to go home at this point time. Patient was advised to follow-up with her primary care physician outpatient setting as well as obtain her MRI that is already scheduled. She will be given a Holter monitor here in the emergency department. She was advised to return with worsening symptoms or any other concerns. All question concerns answered she was discharged home in stable condition Lab Data Labs: Laboratory Results - last 24 hr 01/01/24 21:47 WBC 8.8 RBC 4.69 Hgb 14.0 Hct 41.8 MCV 89.1 MCH 29.9 MCHC 33.5 RDW Std Deviation 44.9 H RDW Coeff of Justin 14.0 Plt Count 219 MPV 10.0 Immature Gran % (Auto) 0.200 Neut % (Auto) 51.4 Lymph % (Auto) 36.9 Pepin % (Auto) 7.8 Eos % (Auto) 3.4 Baso % (Auto) 0.3 Absolute Neuts (auto) 4.5 Absolute Lymphs (auto) 3.23 Nucleated RBC % 0 Sodium 141 Potassium 3.9 Chloride 108 H Carbon Dioxide 29.0 Anion Gap 4 L BUN 12 Creatinine 0.80 Estim Creat Clear Calc 109.54 Est GFR (MDRD) Af Amer 108 Est GFR (MDRD) Non-Af 89 BUN/Creatinine Ratio 15.1 Glucose 93 Calcium 9.6 Total Bilirubin 0.60 AST 20 ALT 25 Alkaline Phosphatase 75 Troponin I High Sens 3 Total Protein 7.3 Albumin 4.0 Globulin 3.3 Albumin/Globulin Ratio 1.2 Urine Color Yellow Urine Clarity Clear Urine pH 6.0 Ur Specific [place] 1.020 Urine Protein Negative Urine Glucose (UA) Normal Urine Ketones Negative Urine Occult Blood Negative Urine Nitrite Negative Urine Bilirubin Negative Urine Urobilinogen Normal Ur Leukocyte Esterase 100 H Urine RBC 0 SEEN Urine WBC 0-5 SEEN Ur Squamous Epith Cells 0 SEEN Urine Bacteria RARE Urine Mucus 0 SEEN Urine Test Negative Radiography Diagnostic Testing: Clinical Impression(s) from Imaging Studies Brain CT 01/01/24 21:21 IMPRESSION: Interval resolution of the previously noted findings of maxillary sinusitis. Otherwise stable. No acute findings in the head/brain. Electronically Signed: Librado Valenzuela MD at 22:08 EDT , Discharge Plan Triage Chief Complaint: Syncope ED Provider: Og Watts Dx/Rx/DC Orders Clinical Impression: Near syncope Prescriptions: No Action fluoxetine 10 mg capsule 10 mg PO DAILY furosemide 20 mg tablet 20 mg PO DAILY albuterol sulfate 90 mcg/actuation HFA aerosol inhaler 2 inh inhalation PRN cyclobenzaprine 10 mg tablet 10 mg PO TID PRN (Reason: Muscle Spasm) Qty: 15 0RF ibuprofen 600 mg tablet 600 mg PO Q6H PRN PRN (Reason: pain) Qty: 20 0RF Primary Care Provider: Jose Roberto Carrera Referrals: Jose Roberto Carrera DO [Primary Care Provider] - Activity Restrictions/Additional Instructions: Follow-up your primary care physician outpatient setting. Return with worsening symptoms or concerns. Wear the Holter monitor as prescribed. Print Language: Slovenian Disposition Disposition: Home, Self Care
[2024-01-01 23:15] VITALS: BP 98/64; PULSE 61; RESP 14; TEMP 36.4; O2SAT 98
== END 2024-01-01 23:44 | disposition home or self-care (01) ==
PROVIDERS: Emergency Provider Emergency Medicine; PCP Student in an Organized Health Care Education/Training Program; Visit Provider Emergency Medicine
DX: R55 Syncope and collapse (principal); R00.2 Palpitations
CPT/HCPCS: 70450; 71046; 80053; 81001; 81025; 84484; 85025; 93005; 93225; 93226; 96361; 96374; 99283; J7030

== ENCOUNTER → 2024-01-01 | Outpatient (CLI) | payer MEDICAID, SELFPAY | END | disposition home or self-care (01) | LOC: CVS 23:22 | PROVIDERS: PCP Student in an Organized Health Care Education/Training Program; Visit Provider Internal Medicine Cardiovascular Disease | DX: R55 Syncope and collapse (principal); R00.2 Palpitations | CPT/HCPCS: 93225; 93226 ==

== ENCOUNTER 2024-01-09 23:56 | Emergency (ER) | payer MEDICAID, SELFPAY ==
[2024-01-09 23:56] VITALS: BP 112/74; PULSE 67; RESP 16; TEMP 36.8; O2SAT 98; BMI 33.6
--- NOTE | 2024-01-10 00:44 | EKG12_ITS ---
Test Reason : CP Blood Pressure : / mmHG Vent. Rate : 071 BPM Atrial Rate : 071 BPM P-R Int : 142 ms QRS Dur : 084 ms QT Int : 396 ms P-R-T Axes : 023 027 024 degrees QTc Int : 430 ms Normal sinus rhythm with sinus arrhythmia Normal ECG Confirmed by LUCIAN VORA, TIESHA ([id number]), field map editor KITA MOHR ([id number]) on 01/11/2024 1:03:43 PM Referred By: Confirmed By:TIESHA EPSTEIN MD
[2024-01-10 00:56] VITALS: BP 101/71; PULSE 58; RESP 17; O2SAT 100
[2024-01-10 01:00] VITALS: BP 101/71; PULSE 58; RESP 17; O2SAT 100
--- NOTE | 2024-01-10 01:04 | EDS_ITS ---
HPI History of Present Illness Chief Complaint: Chest Pain Informant: patient Narrative Narrative: 33-year-old female arriving via EMS with a chief complaint of chest pain. Patient states she was at work when she started to get sharp stabbing intermittent pains in the left upper aspect of her chest. She states that it would come and go gradually got more intense but is now resolved. It is not made worse with movement or touch. She states that she was having some indigestion earlier in the day. She was recently seen in the emergency department for syncope wore a Holter monitor which she has not yet received the results of. At the time of the examination the patient denies any symptomology that led her here. I am not seeing the results of her Holter monitor in the computer system. [facility] Medical History Vaginal delivery CHANTE (amniotic fluid index) borderline low Abnormal glucose affecting History of tetanus, diphtheria, and acellular pertussis booster vaccination (Tdap) Contraception management depression Sleep apnea Depression Anxiety Chronic headaches Seizures Home Medications ?Medication ?Instructions ?Recorded ?Last Taken ?Type albuterol sulfate 90 mcg/actuation 2 inh inhalation PRN 11/27/23 Unknown History aerosol inhaler fluoxetine 10 mg capsule 10 mg PO DAILY 11/27/23 Unknown History Allergy/AdvReac Type Severity Reaction Status Date / Time No Known Allergies Allergy Verified 01/09/24 23:56 Family History Grandmother Diabetes Mother Fibromyalgia Father Bipolar 1 disorder Surgical History History of tonsillectomy History of wisdom tooth extraction, class IV edentulism Social History adopted: No household members: significant other housing: house number of children: 2 current occupational status: employed, unemployed and disabled current occupational exposures/hazards: No pets and animals: Yes history of recent travel: No sexually active: Yes Smoking Status: Never smoker second hand exposure: No alcohol intake: never substance use type: does not use seatbelt use: always do you feel safe at home: Yes additional social history: Spouse- Denin ROS ROS ED Constitutional Constitutional ED: Denies chills, fever(s) or weight loss Eyes Eyes: Denies change in vision or diplopia ENT ENT ED: Denies ear pain, rhinorrhea or sore throat Cardiovascular Cardiovascular: Reports chest pain; Denies orthopnea, palpitations or racing heartbeat Respiratory/Chest Respiratory/Chest: Denies cough, dyspnea or orthopnea Gastrointestinal Gastrointestinal: Denies abdominal pain, diarrhea, nausea or vomiting Genitourinary Genitourinary ED: Denies dysuria, hematuria or urinary frequency Musculoskeletal Musculoskeletal: Denies arthralgias or myalgias Integumentary Denies abscess or rash Neurologic Neurologic: Denies headache(s) or weakness Psychiatric Psychiatric: Denies anxiety, depression, suicidal ideation or suicidal thoughts Endocrine Endocrinology: Denies polydipsia, polyphagia or polyuria Allergic/Immunologic Allergic/Immunologic ED: Denies mouth swelling, tongue swelling or urticaria EXAM Physical Exam Const Vital Signs: 01/09/24 23:56 01/09/24 23:56 01/10/24 00:56 Temperature 98.2 F Temperature Source Oral Pulse Rate 67 58 L Respiratory Rate 16 17 Respiratory Effort Normal Non-Labored Blood Pressure 112/74 101/71 Blood Pressure Mean 86 81 Pulse Ox 98 100 Oxygen Delivery Method Room Air Room Air 01/10/24 01:00 Temperature Temperature Source Pulse Rate 58 L Respiratory Rate 17 Respiratory Effort Blood Pressure 101/71 Blood Pressure Mean 81 Pulse Ox 100 Oxygen Delivery Method Positive well nourished and well developed General Appearance ED: well developed HEENT Reports normocephalic, head/scalp atraumatic and moist mucous membranes Eyes PERRL and EOMs intact bilaterally Neck no lymphadenopathy, supple and no JVD Resp normal respiratory effort and clear to auscultation bilaterally Cardio regular rate, regular rhythm and no murmurs GI normal to inspection, nondistended, normoactive bowel sounds and non-tender Palpation: soft Back/Spine no CVA tenderness and normal ROM Extremity normal to inspection General Extremety ED: Negative for edema General Extremity: Negative for edema Neuro oriented x3 and CN's II-XII intact bilaterally Sensorium / Orientation: alert Motor Exam: strength 5/5 throughout Psych mental status grossly normal Mood & Affect: Negative for depressed or tearful Skin no rashes or lesions noted and no wounds MDM MDM MDM Narrative Medical decision making narrative: Differential diagnosis includes chest wall pain esophagitis pericarditis myocarditis acute coronary syndrome PE aortic dissection. Patient is asymptomatic I think would be very unlikely for intermittent sharp pain to represent pulmonary embolism. Nothing seems to make it better or worse. Her EKG is in normal sinus rhythm. She has recently had several chest x-rays that appeared within normal limits and she has had blood work that have been unremarkable. As she is asymptomatic at the current time with recent evaluations I do not see that repeating a lot of the same test or going to be beneficial. Patient was observed here and has been in normal sinus rhythm on the monitor. Should be discharged home with follow-up History & Record Review Discussion w/independent historian: Patient EKG Initial EKG: Attestation: I personally reviewed and interpreted this EKG as follows: Comments: Normal sinus rhythm with a ventricular rate of 71 bpm Discharge Plan Triage Chief Complaint: Chest Pain ED Provider: Javon Damon Dx/Rx/DC Orders Clinical Impression: Chest pain Instructions: ED Chest Pain, Uncertain Cause Prescriptions: No Action fluoxetine 10 mg capsule 10 mg PO DAILY albuterol sulfate 90 mcg/actuation HFA aerosol inhaler 2 inh inhalation PRN Primary Care Provider: Jose Roberto Carrera Referrals: Jose Roberto Carrera DO [Primary Care Provider] - 3-5 Days Print Language: Icelandic Disposition Disposition: Home, Self Care
[2024-01-10 01:13] VITALS: BP 101/71; PULSE 63; RESP 16; TEMP 36.7; O2SAT 100
== END 2024-01-10 01:20 | disposition home or self-care (01) ==
PROVIDERS: Emergency Provider Emergency Medicine; PCP Student in an Organized Health Care Education/Training Program; Visit Provider Emergency Medicine
DX: R07.9 Chest pain, unspecified (principal); F32.A Depression, unspecified; F41.9 Anxiety disorder, unspecified; Z79.51 Long term (current) use of inhaled steroids; Z79.899 Other long term (current) drug therapy
CPT/HCPCS: 93005; 99284

== ENCOUNTER → 2024-02-09 | Outpatient (CLI) | payer MEDICAID, SELFPAY ==
--- NOTE | 2024-02-09 09:00 | RAD_ITS ---
HISTORY: foot pain. TECHNIQUE: XR Foot Min 3 Views. COMPARISON: None. FINDINGS: BONES : No acute fracture identified. Mineralization unremarkable. JOINTS: No dislocation. Joint spaces maintained. SOFT TISSUES: No radiopaque foreign body identified. RAD/Foot min 3 Views IMPRESSION: No acute fracture or dislocation identified in the right foot. Electronically Signed: Diane Prather MD at 11:07 EDT ,
== END | disposition home or self-care (01) ==
LOC: MTRAD 07:43
PROVIDERS: PCP Student in an Organized Health Care Education/Training Program; Referring Provider Physician Assistant Surgical; Visit Provider Physician Assistant Surgical
DX: S96.911A Strain of unspecified muscle and tendon at ankle and foot level, right foot, initial encounter (principal)
CPT/HCPCS: 73630